=== PATIENT | male | born 1960 | race Caucasian/White ===

== ENCOUNTER 2025-06-16 11:58 | Emergency (ER) | payer MEDICAID, SELFPAY ==
[2025-06-16] VITALS (12 sets, daily range): BP systolic 119–153; BP diastolic 62–88; PULSE 81–97; RESP 18–28; TEMP 36.6–37.2; O2SAT 95–100; BMI 23.6
--- NOTE | 2025-06-16 14:06 | EKG12_ITS ---
Test Reason : SOB Blood Pressure : */* mmHG Vent. Rate : 82 BPM Atrial Rate : 82 BPM P-R Int : 130 ms QRS Dur : 88 ms QT Int : 364 ms P-R-T Axes : 71 64 57 degrees QTcB Int : 425 ms Normal sinus rhythm Normal ECG Confirmed by HERI TYSON, BRADLEY ([id number]), book or script editor MICHAELA CRUZ ([id number]) on 06/18/2025 1:38:56 PM Referred By: OSMANI Confirmed By: BRADLEY LIRIANO MD
--- OUTSIDE RECORDS SUMMARY | 2025-06-16 14:13 | XMS RPT_ITS | CCD ---
Author Organization [facility] Care Team Providers Care [employer] Name Role Phone PROVIDER, EXTERNAL Unavailable Unavailable Christy Mcgee Primary Care Provider Scialan, Christy Lee Primary Care Provider Christy Mcgee Primary Care Provider Christy Mcgee Primary Care Provider Christy Mcgee MD Primary Care Provider CHRISTY MCGEE Primary Care Unavailable NATALI NOLAN Attending Unava ilable Christy Mcgee MD Primary Care Provider Get Bhatia Unavailable Christy Mcgee Primary Care Provider PARTHA BARRIOS Admitting Unavailable PARTHA BARRIOS Primary Care Unavailable PARTHA BARRIOS Attending Unavailable JAYY FRYE Consulting Unavailable JAYY FRYE Referring Unavailable PROVIDER, UNKNOWN Consulting Unavailable PROVIDER, UNKNOWN Consulting Unavailable PROVIDER, UNKNOWN Consulting Unavailable CHRISTY MCGEE Primary Care Unavailable SCICHRISTY PHILLIPS Primary Care Unavailable Get Bhatia MD Unavailable [phone] Christy Mcgee MD Primary Care Provider ODALYS MURILLO Attending Unavailable CHRISTY MCGEE Primary Care Unavailable RAE MARTIN Attending Unavailable ODALYS MURILLO Referring Unavailable CHRISTY MCGEE Primary Care Unavailable ODALYS MURILLO Attending Unavailable CHRISTY MCGEE Primary Care Unavailable SCICHRISTY PHILLIPS Attending Unavailable SCICHRISTY PHILLIPS Primary Care Unavailable SCICHRISTY PHILLIPS Attending Unavailable CHRISTY MCGEE Primary Care Unavailable Medications Current Medications Medication Drug Class(es) Dates Sig (Normalized) Sig (Original) polyethylene glycol 3350 184667 mg / potassium chloride 2970 mg / sodium bicarbonate 6740 mg / sodium chloride 5860 mg / sodium sulfate 67090 mg powder for oral solution (1 source) Osmotic Laxative Start: 07-03-2024 End: 07-03-2024 peg 3350-Electrolytes (GOLYTELY) 236-22.74-6.74 -5.86 gram suspension Indications: Screen for colon cancer Take 4,000 mL by mouth one time only for 1 dose. Refer to printed prep instructions from your provider. 4000 mL 07/03/2024 07/03/2024 Active Completed/Discontinued Medications Medication Drug Class(es) Dates Sig (Normalized) Sig (Original) atorvastatin 20 mg oral tablet (20 sources) HMG-CoA Reductase Inhibitor Start: 08-27-2022 End: 06-20-2024 take 1 tablet by mouth once daily atorvastatin (LIPITOR) 20 MG tablet Indications: Hyperlipidemia, unspecified hyperlipidemia type Take 1 (one) tablet (20 mg total) by mouth daily . 90 tablet 1 07/06/2023 06/20/2024 Discontinued (Reorder (Suppress CancelRx Message to Pharmacy)) Start: 08-16-2018 End: 08-25-2022 take 1 tablet by mouth once daily atorvastatin (LIPITOR) 20 MG tablet Indications: Hyperlipidemia, unspecified hyperlipidemia type Take 1 (one) tablet (20 mg total) by mouth daily . 90 tablet 1 09/23/2021 08/25/2022 Discontinued (Reorder (Suppress CancelRx Message to Pharmacy)) Comment on above: Take 20 mg by mouth once daily. betamethasone 0.5 mg/ml topical lotion (1 source) Corticosteroid Start: 2018 End: 2019 betamethasone dipropionate (DIPROLENE) 0.05 % lotion Apply topically 2 (two) times a day . 60 mL 0 02/27/2019 08/17/2019 Discontinued (Therapy completed) betamethasone 0.0005 mg/mg / calcipotriene 0.10815 mg/mg topical ointment (5 sources) Corticosteroid, Vitamin D Analog Start: 2022 End: 2023 calcipotriene-betam ethasone (TACLONEX) ointment Indications: Seborrheic dermatitis Apply topically daily . 60 g 5 07/06/2023 07/05/2024 calcium chloride 0.0014 meq/ml / potassium chloride 0.004 meq/ml / sodium chloride 0.103 meq/ml / sodium lactate 0.028 meq/ml injectable solution (1 source) Start: 2023 End: 2023 take 30 mL intravenously every hour 30 mL/hr, INTRAVENOUS, CONTINUOUS, Starting on Wed07/14/24 at 1300, Until Wed07/14/24 at 1422, Preprocedure clobetasol propionate 0.5 mg/ml topical solution (2 sources) Corticosteroid Start: 2018 End: 2019 clobetasol (TEMOVATE) 0.05 % scalp solution Indications: Seborrheic dermatitis Apply topically daily Apply thin film onto dry scalp affected areas only. Leave in place for 15 min before lathering and rinsing. . 50 mL 0 02/14/2019 08/17/2019 Discontinued (Therapy completed) diphenhydrAMINE (1 source) Histamine-1 Receptor Antagonist Start: 2023 End: 2023 12.5-50 mg, INTRAVENOUS, DIRECTED, Starting on Wed07/14/24 at 1400, Until Wed07/14/24 at 1759, DOSING DIRECTED BY PHYSICIAN FOR PROCEDURAL SEDATION ONLY, Intraprocedure 1 ml fentaNYL 0.05 mg/ml injection (1 source) Opioid Agonist Start: 2023 End: 2023 25-100 mcg, INTRAVENOUS, DIRECTED, Starting on Wed07/14/24 at 1400, Until Wed07/14/24 at 1759, DOSING DIRECTED BY PHYSICIAN FOR PROCEDURAL SEDATION ONLY, Intraprocedure ketoconazole 20 mg/ml medicated shampoo (12 sources) Azole Antifungal Start: 2022 End: 2024 ketoconazole (NIZORAL) 2 % shampoo Indications: Psoriasis Apply topically twice weekly Start: 07/08/23. 120 mL 5 07/08/2023 06/20/2024 Discontinued (Reorder (Suppress CancelRx Message to Pharmacy)) Start: 03-19-2022 End: 08-25-2022 ketoconazole (NIZORAL) 2 % s hampoo Indications: Psoriasis Apply topically twice weekly Start: 03/19/22. 120 mL 0 03/19/2022 08/25/2022 Discontinued (Reorder (Suppress CancelRx Message to Pharmacy)) Start: 08-18-2018 End: 08-18-2019 ketoconazole (NIZORAL) 2 % s hampoo Indications: Psoriasis Apply topically twice weekly Start: 08/18/18. 120 mL 5 08/18/2018 02/14/2019 Discontinued (Therapy completed) lisinopril 10 mg oral tablet (20 sources) Angiotensin Converting Enzyme Inhibitor Start: 08-27-2022 End: 06-20-2024 take 1 tablet by mouth once daily lisinopriL (PRINIVIL,ZESTRIL) 10 MG tablet Indications: Essential hypertension Take 1 (one) tablet (10 mg total) by mouth daily . 90 tablet 1 07/06/2023 06/20/2024 Discontinued (Reorder (Suppress CancelRx Message to Pharmacy)) Start: 08-16-2018 End: 08-25-2022 take 1 tablet by mouth once daily lisinopriL (PRINIVIL,ZESTRIL) 10 MG tablet Indications: Essential hypertension Take 1 (one) tablet (10 mg total) by mouth daily . 90 tablet 1 09/23/2021 08/25/2022 Discontinued (Reorder (Suppress CancelRx Message to Pharmacy)) Comment on above: Take 10 mg by mouth once daily. methylPREDNISolone 4 mg oral tablet (8 sources) Corticosteroid Start: 2020 End: 2021 take 1 tablet by mouth once daily methylPREDNISolone (MEDROL DOSEPACK) 4 mg tablet Indications: Dermatitis due to plants, including poison garry, sumac, and oak Take 1 (one) tablet (4 mg total) by mouth daily follow package directions . 21 tablet 0 06/11/2021 09/23/2021 Discontinued (Therapy completed) Start: 06-11-2021 End: 06-11-2021 methylPREDNISolone sod suc(P F) (SOLU-medrol) Injection 125 mg Start: 06-11-2021 End: 06-11-2021 methylPREDNISolone sod suc(P F) (SOLU-medrol) Injection 125 mg Start: 06-11-2021 End: 06-11-2021 methylPREDNISolone sod suc(P F) (SOLU-medrol) Injection 125 mg Start: 06-11-2021 End: 06-11-2021 methylPREDNISolone sod suc(P F) (SOLU-medrol) Injection 125 mg 5 ml midazolam 1 mg/ml injection (1 source) Benzodiazepine Start: 07-14-2024 End: 07-14-2024 1-5 mg, INTRAVENOUS, DIRECTED, Starting on Wed07/14/24 at 1400, Until Wed07/14/24 at 1759, DOSING DIRECTED BY PHYSICIAN FOR PROCEDURAL SEDATION ONLY, Intraprocedure tropicamide 10 mg/ml ophthalmic solution (1 source) Anticholinergic Start: 03-01-2023 End: 03-01-2023 tropicamide 1 % 1 Drop (MYDRIACYL) Problems Active Problems Problem Classification Problem Date Documented Da te Episodic/Chronic Allergic reactions (2 sources) Contact dermatitis due to plants; Translations: [Unspecified contact dermatitis due to plants, except food] Episodic Blindness and vision defects (3 sources) Bilateral hyperopia of eyes; Translations: [Hypermetropia, bilateral] 03-01-2023 Episodic Cancer of bronchus; lung (18 sources) Malignant tumor of lung; Translations: [Malignant neoplasm of unspecified part of unspecified bronchus or lung] Onset: 08-15-2013 Resolved: 11-22-2013 01-13-2016 Chronic Cataract (6 sources) Nuclear sclerotic cataract; Translations: [Age-related nuclear cataract, bilateral] Onset: 03-01-2023 03-01-2023 Chronic Deficiency and other anemia (1 source) Anemia; Translations: [Anemia, unspecified] 07-17-2024 Episodic Disorders of lipid metabolism (20 sources) Hyperlipidemia; Translations: [Hyperlipidemia, unspecified] Onset: 08-28-2018 08-28-2018 Chronic Essential hypertension (20 sources) Essential hypertension; Translations: [Elevated blood pressure] Onset: 09-21-2013 Resolved: 11-22-2013 08-28-2018 Chronic Immunizations and screening for infectious disease (2 sources) Encounter for immunization; Translations: [Immunization due] Episodic Other inflammatory condition of skin (20 sources) Psoriasis; Translations: [Psoriasis, unspecified] Onset: 08-28-2018 08-28-2018 Chronic Other inflammatory condition of skin (2 sources) Psoriasis, unspecified; Translations: [Psoriasis, unspecified] Onset: 08-28-2018 Chronic Other inflammatory condition of skin (3 sources) Seborrheic dermatitis; Translations: [Seborrheic dermatitis, unspecified] Episodic Residual codes; unclassified (1 source) Family history of cancer of colon; Translations: [Family history of malignant neoplasm of digestive organs] 07-03-2024 Episodic Unclassified (9 sources) SUMMARY Onset: 11-22-2013 Resolved: 11-22-2013 Unclassified (5 sources) DISPOSITION AND FOLLOW-UP Onset: 11-22-2013 Unclassified (1 source) History of colonic polyps; Translations: [History of colonic polyps] Onset: 07-21-2024 Past or Other Problems Problem Classification Problem Date Documented Da te Episodic/Chronic Acute posthemorrhagic anemia (4 sources) Acute posthemorrhagic anemia; Translations: [Acute posthemorrhagic anemia] Onset: 4 Resolved: 4 07-21-2021 Episodic Administrative/social admission (4 sources) Patient encounter status; Translations: [Other specified counseling] Onset: 4 Resolved: 4 07-21-2021 Episodic Cardiac dysrhythmias (4 sources) Atrial fibrillation; Translations: [Unspecified atrial fibrillation] Onset: 4 Resolved: 4 07-21-2021 Chronic Crushing injury or internal injury (4 sources) Acute lung injury; Translations: [Unspecified injury of lung, unspecified, initial encounter] Onset: 4 Resolved: 4 11-22-2013 Episodic Diabetes mellitus without complication (4 sources) Metabolic stress hyperglycemia; Translations: [Hyperglycemia, unspecified] Onset: 4 Resolved: 4 07-21-2021 Episodic Diseases of white blood cells (8 sources) Leukocytosis; Translations: [Elevated white blood cell count, unspecified] Onset: 4 Resolved: 4 07-21-2021 Chronic Fluid and electrolyte disorders (8 sources) Decreased plasma volume; Translations: [Hypovolemia] Onset: 4 Resolved: 4 07-21-2021 Episodic Gastrointestinal hemorrhage (4 sources) Gastrointestinal hemorrhage; Translations: [Gastrointestinal hemorrhage, unspecified] Resolved: 4 11-22-2013 Episodic Genitourinary symptoms and ill-defined conditions (6 sources) Nocturia; Translations: [Nocturia] Onset: 3 Episodic Nutritional deficiencies (4 sources) Malnutrition (calorie); Translations: [Moderate protein-calorie malnutrition] Onset: 4 Resolved: 4 07-21-2021 Chronic Other and unspecified benign neoplasm (4 sources) Benign neoplasm of colon; Translations: [Benign neoplasm of colon, unspecified] Resolved: 4 11-22-2013 Episodic Other and unspecified benign neoplasm (5 sources) History of polyp of colon; Translations: [Personal history of colonic polyps] Resolved: 4 11-22-2013 Episodic Other gastrointestinal disorders (4 sources) Diarrhea; Translations: [Diarrhea, unspecified] Onset: 4 Resolved: 4 07-21-2021 Episodic Other nervous system disorders (4 sources) Postoperative pain ; Translations: [Other acute postprocedural pain] Onset: 4 Resolved: 4 07-21-2021 Episodic Other screening for suspected conditions (not mental disorders or infectious disease) (8 sources) Raised prostate specific antigen; Translations: [Patient encounter status] Onset: 4 07-01-2024 Episodic Pleurisy; pneumothorax; pulmonary collapse (4 sources) Bronchopleural fistula; 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] Onset: 4 Resolved: 4 07-21-2021 Episodic Pulmonary heart disease (5 sources) Pulmonary embolism; Translations: [Other pulmonary embolism without acute cor pulmonale] Onset: 4 Episodic Residual codes; unclassified (4 sources) Restlessness and agitation; Translations: [Restlessness and agitation] Onset: 4 Resolved: 4 Chronic Respiratory failure; insufficiency; arrest (adult) (4 sources) Acute respiratory failure; Translations: [Acute respiratory failure, unspecified whether with hypoxia or hypercapnia] Onset: 4 Resolved: 4 07-21-2021 Episodic Unclassified (4 sources) Patient encounter status; Translations: [Well adult exam] 07-01-2024 Unclassified (4 sources) Drug therapy finding; Translations: [DVT prophylaxis] Onset: 4 Resolved: 4 07-21-2021 Results Test Name Value Interpretation Reference Range Facility CNOVon 07-21-2024 CNOV Office Visit (GENSWS ) LIZETH ESTRELLA ([id number]) 1960 Date Time Provider Department 07/21/24 2:30 PM ODALYS MURILLO During your visit today, we recorded the following information about you: Odalys Murillo APRN.AGRICULTURAL CONSULTANT 07/21/2024 2:35 PM Signed FOLLOW UP VISIT - ENDOSCOPY Lizeth Estrella 1960 [id number] REFERRING PHYSICIAN: No referring provider defined for this encounter. Lizeth Estrella is a patient I am following for colon cancer screening-family hx. Dr. Martin performed lower endoscopy on 07/14/24. The patient was found to have Impression: - External and internal hemorrhoids. - One 2 to 3 mm polyp in the cecum, removed with a cold biopsy forceps. Resected and retrieved. - Two 2 to 6 mm polyps in the descending colon, removed with a hot snare. Resected and retrieved. - Two 2 to 10 mm polyps in the sigmoid colon, removed with a hot snare. Resected and retrieved. Pathology demonstrated: FINAL DIAGNOSIS A. Cecal polyp, biopsy: - Tubular adenoma. B. Left colon polyps, biopsies: - Multiple fragments of tubular adenoma. - Separate fragment of colonic mucosa with intramucosal lymphoid aggregate. - Additional fragment of colonic mucosa with no diagnostic abnormality. C. Sigmoid colon polyps, biopsies: - Fragments of tubular adenoma. JE 07/18/2024 The patient notes no complaints since the procedure. VITALS: There were no vitals taken for this visit. General: patient is alert, cooperative, pleasant and in no acute distress On examination, the abdomen is benign. Assessment ASSESSMENT/PLAN: 1. History of colonic polyps - ICD9: V12.72, ICD10: Z86.0100 The operative findings and pathology report were reviewed with the patient, and the patient has had the opportunity to ask questions and have questions answered. If the patient notes any problems or changes in bowel function, the patient should contact me immediately. Otherwise I recommend follow up endoscopy in 3 years. HM updated and recall letter generated. Discussed treatment plan and patient voices understanding. Patient's questions answered appropriately. Medications and potential side effects were discussed and patient voices understanding. Return to the office as scheduled or as needed for worsening/no improvement. Odalys Murillo APRN.BRAYDEN Allergies As of Date: 07/21/2024 (No Known Allergies) Date Reviewed: 07/21/2024 Reviewed by: Odalys Murillo APRN.AGRICULTURAL CONSULTANT - Fully Assessed Reason for Visit: Follow Up [171] Cmt: colonoscopy Primary Visit Diagnosis:History of colonic polyps [Z86.0100] Prescriptions as of 07/21/2024 - lisinopril (ZESTRIL, PRINIVIL) 10 mg tablet Take 10 mg by mouth once daily. - atorvastatin (LIPITOR) 20 mg tablet Take 20 mg by mouth once daily. Problem List As Of Date 07/21/2024 Noted Resolved Benign neoplasm of colon [D12.6] 11/22/2013 Hemorrhage of gastrointestinal tract, unspecifi* 11/22/2013 Personal history of colonic polyps [Z86.0100] 11/22/2013 Right posterolateral thoracotomy, en-bloc rese*08/15/2013 11/22/2013 Post-op pain [G89.18] 09/21/2013 11/22/2013 Intravascular volume depletion [E86.1] 09/21/2013 09/22/2013 Stress hyperglycemia [R73.9] 09/21/2013 11/22/2013 Hypertension [I10] 09/21/2013 11/22/2013 Fluid overload [E87.70] 09/22/2013 09/25/2013 Lung cancer (HCC) [C34.90] 11/22/2013 HTN (hypertension) [I10] 11/22/2013 Respiratory failure, acute (HCC) [J96.00] 09/23/2013 11/22/2013 Acute blood loss anemia [D62] 09/24/2013 10/05/2013 Acute lung injury [S27.309A] 09/25/2013 11/22/2013 Malnutrition of moderate degree (HCC) [E44.0] 09/25/2013 11/22/2013 Atrial fibrillation (HCC) [I48.91] 09/26/2013 11/22/2013 Agitation [R45.1] 09/28/2013 10/17/2013 Leukocytosis [D72.829] 09/29/2013 10/04/2013 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] 10/02/2013 11/22/2013 Discharge planning [Z71.89] 10/10/2013 11/22/2013 DVT prophylaxis [ZQK8112] 10/11/2013 11/22/2013 Leukocytosis [D72.829] 10/14/2013 10/17/2013 Diarrhea [R19.7] 10/17/2013 11/22/2013 SUMMARY [V999.95] 11/22/2013 11/22/2013 SUMMARY [V999.95] 11/22/2013 Pulmonary embolism (HCC) [I26.99] 11/22/2013 Lung cancer (HCC) [C34.90] 11/22/2013 DISPOSITION AND FOLLOW-UP [V999.01] 11/22/2013 Pancoast tumor (HCC) [C34.10] 01/13/2016 Nuclear sclerotic cataract of both eyes [H25.13]03/01/2023 Encounter Status:Closed by ODALYS MURILLO on 07/21/24 Normal [facility] [id number] 07-14-2024 [id number] HNO ID: [id number] Author: RODRI LEY RN Service: ? Author Type: Registered Nurse Type: [id number] Filed: 07/14/2024 14:30 Note Text: The patient received a copy of Colonoscopy discharge instructions that contain information for how to contact the physician who performed the procedure and when to seek medical care. Normal [facility] Colonoscopyon 07-14-2024 Colonoscopy [facility] Gastrointestinal Endoscopy Patient Name: Lizeth Estrella Procedure Date: 07/14/2024 1:35 PM Date of : 1960 Admit Type: Outpatient Age: 64 Gender: Male Note Status: Finalized Procedure: Colonoscopy - screening Indications: Screening for colorectal malignant neoplasm Providers: Rae Martin MD Patient Profile: Refer to note in patient chart for documentation of history and physical. Last Colonoscopy: 10 years ago. Referring Physician: Odalys Murillo (Referring MD) Medicines: Midazolam 7 mg IV, Fentanyl 100 micrograms IV, Diphenhydramine 50 mg IV Complications: No immediate complications. Requesting Provider: Procedure: Pre-Anesthesia Assessment: - Prior to the procedure, a History and Physical was performed, and patient medications and allergies were reviewed. The patient is competent. The risks and benefits of the procedure and the sedation options and risks were discussed with the patient. All questions were answered and informed consent was obtained. Patient identification and proposed procedure were verified by the physician in the pre-procedure area. Mental Status Examination: alert and oriented. Airway Examination: normal oropharyngeal airway and neck mobility. Respiratory Examination: clear to auscultation. CV Examination: normal. Prophylactic Antibiotics: The patient does not require prophylactic antibiotics. Prior Anticoagulants: The patient has taken no anticoagulant or antiplatelet agents. ASA Grade Assessment: II - A patient with mild systemic disease. After reviewing the risks and benefits, the patient was deemed in satisfactory condition to undergo the procedure. The anesthesia plan was to use moderate sedation / analgesia (conscious sedation). Immediately prior to administration of medications, the patient was re-assessed for adequacy to receive sedatives. The heart rate, respiratory rate, oxygen saturations, blood pressure, adequacy of pulmonary ventilation, and response to care were monitored throughout the procedure. The physical status of the patient was re-assessed after the procedure. After I obtained informed consent, the scope was passed under direct vision. Throughout the procedure, the patient's blood pressure, pulse, and oxygen saturations were monitored continuously. The Colonoscope was introduced through the anus and advanced to the cecum, identified by the appendiceal orifice, IC valve and transillumination. The colonoscopy was performed without difficulty. The patient tolerated the procedure well. The quality of the bowel preparation was adequate. The appendiceal orifice and the rectum were photographed. Moderate Sedation: The administration of moderate sedation was initiated at 13:40. Moderate (conscious) sedation was personally administered by the endoscopist. The following parameters were monitored: oxygen saturation, heart rate, blood pressure, respiratory rate, EKG, adequacy of pulmonary ventilation, and response to care. Total physician intraservice time was 28 minutes. Findings: The perianal and digital rectal examinations were normal. External and internal hemorrhoids were found. A 2 to 3 mm polyp was found in the cecum. The polyp was sessile. The polyp was removed with a cold biopsy forceps. Resection and retrieval were complete. Verification of patient identification for the specimen was done by the nurse. Estimated blood loss was minimal. Two sessile polyps were found in the descending colon. The polyps were 2 to 6 mm in size. These polyps were removed with a hot snare. Resection and retrieval were complete. Verification of patient identification for the specimen was done by the nurse. Estimated blood loss was minimal. Two sessile polyps were found in the sigmoid colon. The polyps were 2 to 10 mm in size. These polyps were removed with a hot snare. Resection and retrieval were complete. Verification of patient identification for the specimen was done by the nurse. Estimated blood loss was minimal. Impression: - External and internal hemorrhoids. - One 2 to 3 mm polyp in the cecum, removed with a cold biopsy forceps. Resected and retrieved. - Two 2 to 6 mm polyps in the descending colon, removed with a hot snare. Resected and retrieved. - Two 2 to 10 mm polyps in the sigmoid colon, removed with a hot snare. Resected and retrieved. Recommendation: - Repeat colonoscopy date to be determined after pending pathology results are reviewed for surveillance based on pathology results. - - Follow up with Alejandra Murillo NP, may be via televisit for discussion of pathology results and determination of timing of future endoscopies - Patient has a contact number available for emergencies. The signs and symptoms of potential delayed complications were discussed with the patient. Return to normal activities tomorrow. Written discharge instruction (more content not included)... Normal [facility] Colonoscopy Study observatio non 07-14-2024 [facility] Gastrointestinal Endoscopy Patient Name: Lizeth Estrella Procedure Date: 07/14/2024 1:35 PM Date of : 1960 Admit Type: Outpatient Age: 64 Gender: Male Note Status: Finalized Procedure: Colonoscopy - screening Indications: Screening for colorectal malignant neoplasm Providers: Rae Martin MD Patient Profile: Refer to note in patient chart for documentation of history and physical. Last Colonoscopy: 10 years ago. Referring Physician: Odalys Murillo (Referring MD) Medicines: Midazolam 7 mg IV, Fentanyl 100 micrograms IV, Diphenhydramine 50 mg IV Complications: No immediate complications. Requesting Provider: Procedure: Pre-Anesthesia Assessment: - Prior to the procedure, a History and Physical was performed, and patient medications and allergies were reviewed. The patient is competent. The risks and benefits of the procedure and the sedation options and risks were discussed with the patient. All questions were answered and informed consent was obtained. Patient identification and proposed procedure were verified by the physician in the pre-procedure area. Mental Status Examination: alert and oriented. Airway Examination: normal oropharyngeal airway and neck mobility. Respiratory Examination: clear to auscultation. CV Examination: normal. Prophylactic Antibiotics: The patient does not require prophylactic antibiotics. Prior Anticoagulants: The patient has taken no anticoagulant or antiplatelet agents. ASA Grade Assessment: II - A patient with mild systemic disease. After reviewing the risks and benefits, the patient was deemed in satisfactory condition to undergo the procedure. The anesthesia plan was to use moderate sedation / analgesia (conscious sedation). Immediately prior to administration of medications, the patient was re-assessed for adequacy to receive sedatives. The heart rate, respiratory rate, oxygen saturations, blood pressure, adequacy of pulmonary ventilation, and response to care were monitored throughout the procedure. The physical status of the patient was re-assessed after the procedure. After I obtained informed consent, the scope was passed under direct vision. Throughout the procedure, the patient's blood pressure, pulse, and oxygen saturations were monitored continuously. The Colonoscope was introduced through the anus and advanced to the cecum, identified by the appendiceal orifice, IC valve and transillumination. The colonoscopy was performed without difficulty. The patient tolerated the procedure well. The quality of the bowel preparation was adequate. The appendiceal orifice and the rectum were photographed. Moderate Sedation: The administration of moderate sedation was initiated at 13:40. Moderate (conscious) sedation was personally administered by the endoscopist. The following parameters were monitored: oxygen saturation, heart rate, blood pressure, respiratory rate, EKG, adequacy of pulmonary ventilation, and response to care. Total physician intraservice time was 28 minutes. Findings: The perianal and digital rectal examinations were normal. External and internal hemorrhoids were found. A 2 to 3 mm polyp was found in the cecum. The polyp was sessile. The polyp was removed with a cold biopsy forceps. Resection and retrieval were complete. Verification of patient identification for the specimen was done by the nurse. Estimated blood loss was minimal. Two sessile polyps were found in the descending colon. The polyps were 2 to 6 mm in size. These polyps were removed with a hot snare. Resection and retrieval were complete. Verification of patient identification for the specimen was done by the nurse. Estimated blood loss was minimal. Two sessile polyps were found in the sigmoid colon. The polyps (more content not included)... PR[facility] Radiology Study observation (narrative) [facility] HISTORY PHYSICALon HISTORY PHYSICAL HNO ID: [id number] Author: RAE MARTIN MD Service: General Surgery Author Type: Physician Type: H&P Filed: 07/14/2024 13:36 Note Text: HISTORY AND PHYSICAL Lizeth Estrella : 1960 REFERRING PHYSICIAN: No referring provider defined for this encounter. CHIEF COMPLAINT: Patient presents with: Consult: colonoscopy HPI: Lizeth is a 64 year old male referred for endoscopy. Lizeth notes due for screening colonoscopy- family history of colon cancer in brother. Lizeth denies abdominal pain.. Lizeth denies diarrhea. Lizeth denies constipation. Lizeth denies a change in bowel habits. Lizeth denies melena. Lizeth notes bright red blood per rectum. -painless, thinks it is a result of hemorrhoids Lizeth notes hemorrhoids. Lizeth denies heartburn. Lizeth denies dysphagia. Lizeth denies a history of ulcers/ peptic ulcer disease. Lizeth had a hx of right lung cancer 14 years ago- had 2/3 of his right lung removed. Was discharged from pulmonology at 10 year ced. Denies any CP, COB, wheezing, recent illness or hospitalizations. Lizeth notes family history of colon issues. Brother with colon cancer, just 2 months ago Lizeth has undergone prior endoscopy. O' bleness in [place] in 2007 CURRENT MEDICATIONS Current Outpatient Medications Medication Sig lisinopril (ZESTRIL, PRINIVIL) 10 mg tablet Take 10 mg by mouth once daily. atorvastatin (LIPITOR) 20 mg tablet Take 20 mg by mouth once daily. peg 3350-Electrolytes (GOLYTELY) 236-22.74-6.74 -5.86 gram suspension Take 4,000 mL by mouth one time only for 1 dose. Refer to printed prep instructions from your provider. No current facility-administered medications for this visit. ALLERGIES: Patient has no known allergies. PAST MEDICAL HISTORY PAST MEDICAL HISTORY Diagnosis Date Benign neoplasm of colon Elevated cholesterol History of colonic polyps 03/21/2008 HTN (hypertension) Internal hemorrhoids without mention of complication Personal history of colonic polyps Primary lung adenocarcinoma (HCC) 09/21/2013 Pulmonary embolism (HCC) PAST SURGICAL HISTORY PAST SURGICAL HISTORY Procedure Laterality Date COLONOSCOPY FLX DX W/COLLJ SPEC WHEN PFRMD 01/31/03 Colonoscopy COLONOSCOPY FLX DX W/COLLJ SPEC WHEN PFRMD 03/21/08 PAST SURGICAL HISTORY OF 09/21/2013 Right Pancoast tumor resection including upper lobectomy with en bloc resection of ribs 1, 2, and 3 and posterior elements of first and second vertebrae and right VATS exploration TRACHEOSTOMY (SPECIFY) 10/02/2013 Open tracheostomy. Decannulated 10/12/13 FAMILY HISTORY FAMILY HISTORY Problem Relation Age of Onset Cancer Mother 2001 melanoma skin cancer Hypertension Mother Cancer Father small cell lung cancer Diabetes Brother Diabetes Brother from CHF age 36 SOCIAL HISTORY Social History Tobacco Use Smoking status: Former Current packs/day: 1.00 Average packs/day: 1 pack/day for 25.0 years (25.0 ttl pk-yrs) Types: Cigarettes Smokeless tobacco: Never Tobacco comments: quit Vaping Use Vaping status: Never Used Substance Use Topics Alcohol use: Yes Alcohol/week: 12.0 standard drinks of alcohol Types: 12 Cans of Beer (12oz) per week Drug use: No REVIEW OF SYMPTOMS: The review of systems data was entered by the nurse and reviewed by or Nursing Notes: Dianne Cuello RN 07/03/2024 2:30 PM Signed REVIEW OF SYSTEMS: General: The patient denies fatigue, denies weight loss, denies weight gain, denies feeling hot, and denies feelings of cold. Eyes: The patient denies glaucoma, denies eye injury/surgery, wears glasses or contacts. Ear/Nose/Throat: The patient denies allergies, denies hayfever, denies ear infections, and denies bloody noses. Cardiovascular: The patient denies chest pain, denies heart disease, denies high blood pressure,denies cardiac stent, denies prior heart attack, denies irregular heart beat, denies high cholesterol, denies poor circulation, denies heart failure, other cardiac issues, denies claudication, denies cold feet, denies peripheral arterial stent. Respiratory: The patient denies tuberculosis, denies pneumonia, denies frequent cough, denies pulmonary embolism, denies shortness of breath, and denies coughing up blood. Gastrointestinal: The patient denies difficulty swallowing, denies acid reflux, denies ulcers, denies vomiting, denies jaundice/hepatitis, denies gallbladder problems, denies black or tarry stools, NOTES hemorrhoids, denies bleeding from rectum, denies diverticulitis, denies constipation, denies diarrhea, denies loss of stool control, and denies hernias. Kidney/Bladder: The patient denies kidney stones, denies urine infections, and denies bloody urine. Skin: The patient denies a history of skin cancer, denies bleeding/changing moles, and denies a history of skin rash. Neurologic: The patient denies a history of epilepsy/convulsions, denies headaches, (more content not included)... Normal [facility] SURGICAL PATHOLOGYon CASE REPORT Normal [facility] Comment on above: Order Comment: Speci gloria Type: TISSUE SPECIMEN Ordering Facility: [facility] Address: [address] [place] [address] Result Comment: Surg [facility] Pathology Report Case: [id number] Authorizing Provider: Rae Martin MD Collected: 07/14/2024 01:53 PM Ordering Location: Ambulatory Surgery Received: 07/14/2024 03:12 PM Pathologist: Lyle Edmond MD Specimens: A) - Colon, Cecum, Polyp B) - Colon, Polyp, Left colon polyps x 2 C) - Colon, Sigmoid, Polyp, x 2 polyps Performed By: #### S #### [facility] CLIA [id number] [place] [address] [place] FINAL DIAGNOSIS Normal [facility] Comment on above: Order Comment: Speci men Type: TISSUE SPECIMEN Ordering Facility: [facility] Address: [address] [place] [address] Result Comment: A. C ecal polyp, biopsy: - Tubular adenoma. B. Left colon polyps, biopsies: - Multiple fragments of tubular adenoma. - Separate fragment of colonic mucosa with intramucosal lymphoid aggregate. - Additional fragment of colonic mucosa with no diagnostic abnormality. C. Sigmoid colon polyps, biopsies: - Fragments of tubular adenoma. JEL 07/18/2024 Performed By: #### S #### [facility] CLIA [id number] [address] [place] [address] [place] FIN[place] PERFORMING LAB Normal [facility] Comment on above: Order Comment: Speci men Type: TISSUE SPECIMEN Ordering Facility: [facility] Address: [address] [place] [address] Result Comment: Diag nostic interpretation performed at [facility], [address] [place] [address] CLIA# [id number] Blade Boner: Ced Bhagat M.D. Performed By: #### S #### [facility] CLIA [id number] [address] [place] [address] GROSS DESCRIPTION Normal [facility] Comment on above: Order Comment: Speci men Type: TISSUE SPECIMEN Ordering Facility: [facility] Address: [address] [place] [address] Result Comment: A. C olon, Cecum, Polyp Received in formalin is one piece of mejia, soft tissue measuring 0.2 x 0.2 x 0.2 cm. Totally submitted in one cassette. B. Colon, Polyp Received in formalin are multiple pieces of mejia, soft tissue aggregating to 0.4 x 0.3 x 0.2 cm. Totally submitted in one cassette. C. Colon, Sigmoid, Polyp Received in formalin is a mejia-red polypoid segment of tissue measuring 0.8 x 0.6 x 0.5 cm. No stalk is present. The line of resection is noted. The specimen is bisected. Also received in the same container is one piece of mejia, soft tissue measuring 0.2 x 0.2 x 0.2 cm. Totally submitted in one cassette. JTS July 15, 2024 9:33 AM Gross examination performed at [facility], [address] [place] [address] Performed By: #### S #### [facility] [place] [id number] [facility] CNOVon 07-03-2024 CNOV Office Visit (GENSWS ) LIZETH ESTRELLA ([id number]) 1960 M Date Time Provider Department 07/03/24 2:30 PM ODALYS MURILLO During your visit today, we recorded the following information about you: Temperature Pulse Blood pressure Weight 98.1 degrees 60/minute 140/80 74.2 kg Height 1.778 m Odalys Murillo APRN.AGRICULTURAL CONSULTANT 07/03/2024 4:11 PM Signed HISTORY AND PHYSICAL Lizeth E Ana : 1960 REFERRING PHYSICIAN: No referring provider defined for this encounter. CHIEF COMPLAINT: Patient presents with: Consult: colonoscopy HPI: Lizeth is a 64 year old male referred for endoscopy. Lizeth notes due for screening colonoscopy- family history of colon cancer in brother. Lizeth denies abdominal pain.. Lizeth denies diarrhea. Lizeth denies constipation. Lizeth denies a change in bowel habits. Lizeth denies melena. Lizeth notes bright red blood per rectum. -painless, thinks it is a result of hemorrhoids Lizeth notes hemorrhoids. Lizeth denies heartburn. Lizeth denies dysphagia. Lizeth denies a history of ulcers/ peptic ulcer disease. Lizeth had a hx of right lung cancer 14 years ago- had 2/3 of his right lung removed. Was discharged from pulmonology at 10 year ced. Denies any CP, COB, wheezing, recent illness or hospitalizations. Lizeth notes family history of colon issues. Brother with colon cancer, just 2 months ago Lizeth has undergone prior endoscopy. O' bleness in [place] in 2007 Current Outpatient Medications Medication Sig lisinopril (ZESTRIL, PRINIVIL) 10 mg tablet Take 10 mg by mouth once daily. atorvastatin (LIPITOR) 20 mg tablet Take 20 mg by mouth once daily. peg 3350-Electrolytes (GOLYTELY) 236-22.74-6.74 -5.86 gram suspension Take 4,000 mL by mouth one time only for 1 dose. Refer to printed prep instructions from your provider. No current facility-administered medications for this visit. ALLERGIES: Patient has no known allergies. PAST MEDICAL HISTORY Diagnosis Date Benign neoplasm of colon Elevated cholesterol History of colonic polyps 03/21/2008 HTN (hypertension) Internal hemorrhoids without mention of complication Personal history of colonic polyps Primary lung adenocarcinoma (HCC) 09/21/2013 Pulmonary embolism (HCC) PAST SURGICAL HISTORY Procedure Laterality Date COLONOSCOPY FLX DX W/COLLJ SPEC WHEN PFRMD 01/31/03 Colonoscopy COLONOSCOPY FLX DX W/COLLJ SPEC WHEN PFRMD 03/21/08 PAST SURGICAL HISTORY OF 09/21/2013 Right Pancoast tumor resection including upper lobectomy with en bloc resection of ribs 1, 2, and 3 and posterior elements of first and second vertebrae and right VATS exploration TRACHEOSTOMY (SPECIFY) 10/02/2013 Open tracheostomy. Decannulated 10/12/13 FAMILY HISTORY Problem Relation Age of Onset Cancer Mother 2002 melanoma skin cancer Hypertension Mother Cancer Father small cell lung cancer Diabetes Brother Diabetes Brother from CHF age 36 Social History Tobacco Use Smoking status: Former Current packs/day: 1.00 Average packs/day: 1 pack/day for 25.0 years (25.0 ttl pk-yrs) Types: Cigarettes Smokeless tobacco: Never Tobacco comments: quit Vaping Use Vaping status: Never Used Substance Use Topics Alcohol use: Yes Alcohol/week: 12.0 standard drinks of alcohol Types: 12 Cans of Beer (12oz) per week Drug use: No REVIEW OF SYMPTOMS: The review of systems data was entered by the nurse and reviewed by or Nursing Notes: Dianne Cuello RN 07/03/2024 2:30 PM Signed REVIEW OF SYSTEMS: General: The patient denies fatigue, denies weight loss, denies weight gain, denies feeling hot, and denies feelings of cold. Eyes: The patient denies glaucoma, denies eye injury/surgery, wears glasses or contacts. Ear/Nose/Throat: The patient denies allergies, denies hayfever, denies ear infections, and denies bloody noses. Cardiovascular: The patient denies chest pain, denies heart disease, denies high blood pressure,denies cardiac stent, denies prior heart attack, denies irregular heart beat, denies high cholesterol, denies poor circulation, denies heart failure, other cardiac issues, denies claudication, denies cold feet, denies peripheral arterial stent. Respiratory: The patient denies tuberculosis, denies pneumonia, denies frequent cough, denies pulmonary embolism, denies shortness of breath, and denies coughing up blood. Gastrointestinal: The patient denies difficulty swallowing, denies acid reflux, denies ulcers, denies vomiting, denies jaundice/hepatitis, denies gallbladder problems, denies black or tarry stools, NOTES hemorrhoids, denies bleeding from rectum, denies diverticulitis, denies constipation, denies diarrhea, denies loss of stool control, and denies hernias. Kidney/Bladder: The patient denies kidney stones, denies urine infections, and denies bloody urine. Skin: The p (more content not included)... Normal [facility] CBC (INCLUDES DIFF/PLT)on Basophils (Bld) [#/Vol] 0.031 10*3/uL Normal 0-200 [facility] Comment on above: Performed By: #### 3 0661, 2417, 7180, 23583 #### [facility] [address], [address] [place] [address] [place] Worker: Jerman Awad MD Basophils/100 WBC (Bld) 0.6 % Normal [facility] Comment on above: Performed By: #### 3 1851, 3899, 4630, 98606 #### [facility] [address], [address] [place], [place] [id number] [place] Worker: Jerman Awad MD Eosinophils (Bld) [#/Vol] 0.062 10*3/uL Normal 15-500 [facility] Comment on above: Performed By: #### 3 61, 6399, 7600, 85351 #### [facility] of [place] [address] [place] Worker: Jerman Awad MD Eosinophils/100 WBC (Bld) 1.2 % Normal [facility] Comment on above: Performed By: #### 3 61, 6399, 7600, 65623 #### [facility] [place] [address] [place] Worker: Jerman Awad MD Erythrocyte distribution width (RBC) [Ratio] 14.9 % Normal 11.0-15.0 [facility] Comment on above: Performed By: #### 3 61, 63, 7600, 77047 #### [facility] [place] [address] [place] Worker: Jerman Awad MD Hematocrit (Bld) [Volume fraction] 37.4 % Low 38.5-50.0 [facility] Comment on above: Performed By: #### 3 61, 63, 7600, 54930 #### [facility] [place] [address] [place] Worker: Jerman Awad MD Hemoglobin (Bld) [Mass/Vol] 11.4 g/dL Low 13.2-17.1 [facility] Comment on above: Performed By: #### 3 61, 63, 7600, 48201 #### [facility] [place] [address] [place] Worker: Jerman Awad MD Lymphocytes (Bld) [#/Vol] 1.102 10*3/uL Normal 850-3900 [facility] Comment on above: Performed By: #### 3 61, 6399, 7600, 80453 #### [facility] [place] [address] [place] Worker: Jerman Awad MD Lymphocytes/100 WBC (Bld) 21.2 % Normal [facility] Comment on above: Performed By: #### 3 61, 63, 7600, 31860 #### [facility] [place] [address] [place] Worker: Jerman Awad MD MCH (RBC) [Entitic mass] 25.8 pg Low 27.0-33.0 [facility] Comment on above: Performed By: #### 3 61, 63, 7600, 13981 #### [facility] [place] [address] [place] Worker: Jerman Awad MD MCHC (RBC) [Mass/Vol] 30.5 g/dL Low 32.0-36.0 [facility] Comment on above: Result Comment: For adults, a slight decrease in the calculated MCHC value (in the range of 30 to 32 g/dL) is most likely not clinically significant; however, it should be interpreted with caution in correlation with other red cell parameters and the patient's clinical condition. Performed By: #### 3 61, 63, 7600, 92869 #### [facility] [place] [address] [place] Worker: Jerman Awad MD MCV (RBC) [Entitic vol] 84.6 fL Normal 80.0-100.0 [facility] Comment on above: Performed By: #### 3 61, 63, 7600, 26482 #### [facility] [place] [address] [place] Worker: Jerman Awad MD Monocytes (Bld) [#/Vol] 0.541 10*3/uL Normal 200-950 [facility] Comment on above: Performed By: #### 3 61, 63, 7600, 28030 #### [facility] [place] [address] [place] Worker: Jerman Awad MD Monocytes/100 WBC (Bld) 10.4 % Normal [facility] Comment on above: Performed By: #### 3 61, 63, 7600, 52265 #### [facility] of [address] [place] [address] [place] Worker: Jerman Awad MD Neutrophils (Bld) [#/Vol] 3.463 10*3/uL Normal 3909-0154 [facility] Comment on above: Performed By: #### 3 6127, 6399, 7600, 21103 #### [facility] of [address], [address] [place] [address] [place] Worker: Jerman Awad MD Neutrophils/100 WBC (Bld) 66.6 % Normal [facility] Comment on above: Performed By: #### 3 6127, 6399, 7600, 96289 #### [facility] [place] [address] [place] Worker: Jerman Awad MD Platelet mean volume (Bld) [Entitic vol] 9.8 fL Normal 7.5-12.5 [facility] Comment on above: Performed By: #### 3 6127, 6399, 7600, 42404 #### [facility] of [address], [address] [place] [address] [place] Worker: Jerman Awad MD Platelets (Bld) [#/Vol] 281 10*3/uL Normal 140-400 [facility] Comment on above: Performed By: #### 3 6127, 6399, 7600, 46178 #### [facility] [place] [address] [place] Worker: Jerman Awad MD RBC (Bld) [#/Vol] 4.42 10*6/uL Normal 4.20-5.80 [facility] Comment on above: Performed By: #### 3 6127, 6399, 7600, 78353 #### [facility] [place] [address] [place] Worker: Jerman Awad MD WBC (Bld) [#/Vol] 5.2 10*3/uL Normal 3.8-10.8 [facility] Comment on above: Performed By: #### 3 61, 6399, 7600, 16859 #### [facility] of [address], [address] [place] [address] [place] Worker: Jerman Awad MD [facility] 06-21-2024 Albumin [Mass/Vol] 4.7 g/dL Normal 3.6-5.1 [facility] Comment on above: Performed By: #### 3 6127, 6399, 7600, 66459 #### [facility] of [address], [address] [place] [address] [place] Worker: Jerman Awad MD Albumin/Globulin [Mass ratio] 1.8 {ratio} Normal 1.0-2.5 [facility] Comment on above: Performed By: #### 3 6127, 6399, 7600, 96113 #### [facility] of [address], [address] [place] [address] [place] Worker: Jerman Awad MD ALP [Catalytic activity/Vol] 43 U/L Normal 35-144 [facility] Comment on above: Performed By: #### 3 6127, 6399, 7600, 15419 #### [facility] of [address], [address] [place] [address] [place] Worker: Jerman Awad MD ALT [Catalytic activity/Vol] 15 U/L Normal 9-46 [facility] Comment on above: Performed By: #### 3 6127, 6399, 7600, 87875 #### [facility] [place] [address] [place] Worker: Jerman Awad MD AST [Catalytic activity/Vol] 15 U/L Normal 10-35 [facility] Comment on above: Performed By: #### 3 6127, 6399, 7600, 82489 #### [facility] [place] [address] [place] Worker: Jerman Awad MD Bilirubin [Mass/Vol] 0.5 mg/dL Normal 0.2-1.2 [facility] Comment on above: Performed By: #### 3 6127, 6399, 7600, 49456 #### [facility] [place] [address] [place] Worker: Jerman Awad MD BUN/CREATININE RATIO SEE NOTE: Normal 6-22 [facility] Comment on above: Result Comment: Not Reported: BUN and Creatinine are within reference range. Performed By: #### 3 6127, 6399, 7600, 94711 #### [facility] [place] [address] [place] Worker: Jerman Awad MD Calcium [Mass/Vol] 9.5 mg/dL Normal 8.6-10.3 [facility] Comment on above: Performed By: #### 3 6127, 6399, 7600, 49871 #### [facility] [place] [address] [place] Worker: Jerman Awad MD Chloride [Moles/Vol] 102 mmol/L Normal 98-110 [facility] Comment on above: Performed By: #### 3 6127, 6399, 7600, 66722 #### [facility] [place] [address] [place] Worker: Jerman Awad MD CO2 [Moles/Vol] 25 mmol/L Normal 20-32 [facility] Comment on above: Performed By: #### 3 6127, 6399, 7600, 58899 #### [facility] [place] [address] [place] Worker: eJrman Awad MD Creatinine [Mass/Vol] 1.06 mg/dL Normal 0.70-1.35 [facility] Comment on above: Performed By: #### 3 6127, 6399, 7600, 74261 #### [facility] [place] [address] [place] Worker: Jerman Awad MD GFR/1.73 sq M.predicted among non-blacks MDRD (S/P/Bld) [Vol rate/Area] 79 mL/min/{1.73_m2} Normal > OR = 60 [facility] Comment on above: Performed By: #### 3 6127, 6399, 7600, 79842 #### [facility] [place] [address] [place] Worker: Jerman Awad MD Globulin (S) [Mass/Vol] 2.6 g/dL Normal 1.9-3.7 [facility] Comment on above: Performed By: #### 3 61, 6399, 7600, 71763 #### [facility] [place] [address] [place] Worker: Jerman Awad MD Glucose [Mass/Vol] 99 mg/dL Normal 65-99 [facility] Comment on above: Result Comment: Fasting reference interval Performed By: #### 3 61, 63, 7600, 12414 #### [facility] [place] [address] [place] Worker: Jerman Awad MD Potassium [Moles/Vol] 4.4 mmol/L Normal 3.5-5.3 [facility] Comment on above: Performed By: #### 3 61, 63, 7600, 67482 #### [facility] [place] [address] [place] Worker: Jerman Awad MD Protein [Mass/Vol] 7.3 g/dL Normal 6.1-8.1 [facility] Comment on above: Performed By: #### 3 61, 63, 7600, 85410 #### [facility] [place] [address] [place] Worker: Jerman Awad MD Sodium [Moles/Vol] 137 mmol/L Normal 135-146 [facility] Comment on above: Performed By: #### 3 61, 63, 7600, 31421 #### [facility] [place] [address] [place] Worker: Jerman Awad MD Urea nitrogen [Mass/Vol] 19 mg/dL Normal 7-25 [facility] Comment on above: Performed By: #### 3 61, 63, 7600, 24068 #### [facility] [address], [address] [place] [address] [place] Worker: Jerman Awad MD Comprehensive metabolic 2000 panelon 06-21-2024 Albumin [Mass/Vol] 4.7 g/dL 3.6 - 5.1 g/dL [facility] Albumin/Globulin [Mass ratio] 1.8 {ratio} [facility] ALP [Catalytic activity/Vol] 43 U/L 35 - 144 U/L [facility] ALT [Catalytic activity/Vol] 15 U/L 9 - 46 U/L [facility] AST [Catalytic activity/Vol] 15 U/L 10 - 35 U/L [facility] Bilirubin [Mass/Vol] 0.5 mg/dL 0.2 - 1.2 mg/dL [facility] [facility] Calcium [Mass/Vol] 9.5 mg/dL 8.6 - 10. 3 mg/dL [facility] Chloride [Moles/Vol] 102 mmol/L 98 - 110 mmol/L [facility] CO2 [Moles/Vol] 25 mmol/L 20 - 32 mmol/L [facility] Creatinine [Mass/Vol] 1.06 mg/dL 0.70 - 1.35 mg/dL [facility] GFR/1.73 sq M.predicted among non-blacks MDRD (S/P/Bld) [Vol rate/Area] 79 mL/min/{1.73_m2} > OR = 60 mL/min/1.73m2 [facility] Globulin (S) [Mass/Vol] 2.6 g/dL [facility] Glucose [Mass/Vol] 99 mg/dL 65 - 99 mg/dL [facility] Comment on above: Fasting reference interval Potassium [Moles/Vol] 4.4 mmol/L 3.5 - 5.3 mmol/L [facility] Protein [Mass/Vol] 7.3 g/dL 6.1 - 8.1 g/dL [facility] Sodium [Moles/Vol] 137 mmol/L 135 - 146 mmol/L [facility] Urea nitrogen [Mass/Vol] 19 mg/dL 7 - 25 mg/dL [facility] Urea nitrogen/Creatinine [Mass ratio] SEE NOTE: [facility] Comment on above: Not Reported: BUN an d Creatinine are within reference range. LIPID PANEL, STANDARDon 05-27 Cholesterol [Mass/Vol] 188 mg/dL Normal <200 [facility] Comment on above: Performed By: #### 3 [id number], [id number], [id number] #### [facility] [address], [address] [place] [address] [place] Worker: Jerman Awad MD Cholesterol in HDL [Mass/Vol] 93 mg/dL Normal > OR = 40 [facility] Comment on above: Performed By: #### 3 [id number], [id number], 7600, [id number] #### [facility] [address], [address] [place] [address] [place] Worker: Jerman Awad MD Cholesterol in LDL [Mass/Vol] 77 mg/dL Normal [facility] Comment on above: Result Comment: Refe rence range: <100 Desirable range <100 mg/dL for primary prevention; <70 mg/dL for patients with CHD or diabetic patients with > or = 2 CHD risk factors. LDL-C is now calculated using the Trip calculation, which is a validated novel method providing better accuracy than the Friedewald equation in the estimation of LDL-C. [place] PAN et al. DARION. 2013;310(19): 2041-7304 (http://education.Hiptype.Bivarus/faq/FWR420) Performed By: #### 3 [id number], 6399, 7600, [id number] #### [facility] [address], [address] [place] [address] [place] Worker: Jerman Awad MD Cholesterol.total/C holesterol in HDL [Mass ratio] 2.0 {ratio} Normal <5.0 [facility] Comment on above: Performed By: #### 3 [id number], [id number], 7600, [id number] #### [facility] [address], [address] [place] [address] [place] Worker: Jerman Awad MD NON HDL CHOLESTEROL 95 mg/dL (calc) Normal <130 [facility] Comment on above: Result Comment: For patients with diabetes plus 1 major ASCVD risk factor, treating to a non-HDL-C goal of <100 mg/dL (LDL-C of <70 mg/dL) is considered a therapeutic option. Performed By: #### 3 [id number], 6399, 7600, [id number] #### [facility] [address], [address] [place] [address] [place] Worker: Jerman Awad MD Triglyceride [Mass/Vol] 96 mg/dL Normal <150 [facility] Comment on above: Performed By: #### 3 [id number], [id number], 7600, [id number] #### [facility] [address], [address] [place] [address] [place] Worker: Jerman Awad MD Laboratory - Chemistry and C hemistry - challengeon 06-21-2024 Prostate specific Ag [Mass/Vol] 1.47 ng/mL < OR = 4.00 [facility] Comment on above: The total PSA value from this assay system is standardized against the WHO standard. The test result will be approximately 20% lower when compared to the equimolar-standardized total PSA ([place]). Comparison of serial PSA results should be interpreted with this fact in mind. This test was performed using the Siemens chemiluminescent method. Values obtained from different assay methods cannot be used interchangeably. PSA levels, regardless of value, should not be interpreted as absolute evidence of the presence or absence of disease. Laboratory - Hematology and Cell countson 06-21-2024 Basophils (Bld) [#/Vol] 31 10*3/uL [facility] Basophils/100 WBC (Bld) 0.6 % [facility] Eosinophils (Bld) [#/Vol] 62 10*3/uL [facility] Eosinophils/100 WBC (Bld) 1.2 % [facility] Erythrocyte distribution width (RBC) [Ratio] 14.9 % 11.0 - 15.0 % [facility] Hematocrit (Bld) [Volume fraction] 37.4 % Low 38.5 - 50.0 % [facility] Hemoglobin (Bld) [Mass/Vol] 11.4 g/dL Low 13.2 - 17.1 g/dL [facility] Lymphocytes (Bld) [#/Vol] 1102 10*3/uL [facility] Lymphocytes/100 WBC (Bld) 21.2 % [facility] MCH (RBC) [Entitic mass] 25.8 pg Low 27.0 - 33.0 pg [facility] MCHC (RBC) [Mass/Vol] 30.5 g/dL Low 32.0 - 36.0 g/dL [facility] Comment on above: For adults, a slight decrease in the calculated MCHC value (in the range of 30 to 32 g/dL) is most likely not clinically significant; however, it should be interpreted with caution in correlation with other red cell parameters and the patient's clinical condition. MCV (RBC) [Entitic vol] 84.6 fL 80.0 - 100.0 fL [facility] Monocytes (Bld) [#/Vol] 541 10*3/uL [facility] Monocytes/100 WBC (Bld) 10.4 % [facility] Neutrophils (Bld) [#/Vol] 3463 10*3/uL [facility] Neutrophils/100 WBC (Bld) 66.6 % [facility] Platelet mean volume (Bld) [Entitic vol] 9.8 fL 7.5 - 12.5 fL [facility] Platelets (Bld) [#/Vol] 281 10*3/uL [facility] RBC (Bld) [#/Vol] 4.42 10*6/uL [facility] WBC (Bld) [#/Vol] 5.2 10*3/uL [facility] Lipid 1996 panelon 4 Cholesterol [Mass/Vol] 188 mg/dL [facility] [place] - 200 mg/dL [facility] Cholesterol in HDL [Mass/Vol] 93 mg/dL > OR = 40 [facility] Cholesterol in LDL [Mass/Vol] 77 mg/dL mg/dL (calc) [facility] Comment on above: Reference range: <10 0 Desirable range <100 mg/dL for primary prevention; <70 mg/dL for patients with CHD or diabetic patients with > or = 2 CHD risk factors. LDL-C is now calculated using the iRchmond-Gayle calculation, which is a validated novel method providing better accuracy than the Friedewald equation in the estimation of LDL-C. [place] PAN et al. DARION. 2013;310(19): 3981-0318 (http://education.Hiptype.com/faq/CTH148) Cholesterol non HDL [Mass/Vol] 95 mg/dL [facility] Comment on above: For patients with di abetes plus 1 major ASCVD risk factor, treating to a non-HDL-C goal of <100 mg/dL (LDL-C of <70 mg/dL) is considered a therapeutic option. Cholesterol.total/C holesterol in HDL [Mass ratio] 2 {ratio} [facility] Triglyceride [Mass/Vol] 96 mg/dL NINF - 150 mg/dL [facility] No Panel Informationon 06-21 [facility] Interpretation and review of laboratory results Abnormal [facility] PSA, TOTAL, MONITORINGon PSA, TOTAL, MONITORING 1.47 ng/mL Normal < OR = 4.00 [facility] Comment on above: Result Comment: The total PSA value from this assay system is standardized against the WHO standard. The test result will be approximately 20% lower when compared to the equimolar-standardized total PSA ([place]). Comparison of serial PSA results should be interpreted with this fact in mind. This test was performed using the Siemens chemiluminescent method. Values obtained from different assay methods cannot be used interchangeably. PSA levels, regardless of value, should not be interpreted as absolute evidence of the presence or absence of disease. Performed By: #### 3 [id number], [id number], 7600, [id number] #### [facility] [address], [address] [place] [id number] [place] Worker: Jerman Awad MD TSH DL <= 0.005 mIU/L [facility] 1 08-21-2023 TSH Qn 3.09 m[IU]/L [facility] TSH W/REFLEX TO FT4on 2023 TSH W/REFLEX TO FT4 3.09 mIU/L Normal 0.40-4.50 [facility] Comment on above: Performed By: #### 3 [id number], 6399, 5220, [id number] #### [facility] [address], [address] [place] [id number] [place] Worker: Jerman Awad MD Comprehensive metabolic 2000 panelon 07-06-2023 Albumin [Mass/Vol] 4.7 g/dL 3.2 - 5.2 g/dL [facility] ALP [Catalytic activity/Vol] 50 U/L 40 - 150 U/L [facility] ALT [Catalytic activity/Vol] 24 U/L 0-50 U/L [facility] Anion gap [Moles/Vol] 18 mmol/L 10 - 20 mmol/L [facility] AST [Catalytic activity/Vol] 22 U/L 0-50 U/L [facility] Bilirubin [Mass/Vol] 0.4 mg/dL 0.0 - 1.3 mg/dL [facility] Calcium [Mass/Vol] 9.5 mg/dL 8.4 - 10. 2 mg/dL [facility] Chloride [Moles/Vol] 103 mmol/L 98 - 108 mmol/L [facility] Creatinine [Mass/Vol] 0.81 mg/dL 0.80 - 1.30 mg/dL [facility] GFR/1.73 sq M.predicted CKD-EPI (S/P/Bld) [Vol rate/Area] 100 - PINF [facility] Comment on above: Estimated GFR was ca lculated using the 2020 CKD-EPI creatinine equation. Glucose [Mass/Vol] 98 mg/dL 65 - 99 mg/dL [facility] HCO3 [Moles/Vol] 26 mmol/L 21 - 32 mmol/L [facility] Interpretation and review of laboratory results Abnormal [facility] Potassium [Moles/Vol] 4.6 mmol/L 3.5 - 5.1 mmol/L [facility] Protein [Mass/Vol] 7.2 g/dL 6.0 - 8.0 g/dL [facility] Sodium [Moles/Vol] 142 mmol/L 135 - 145 mmol/L [facility] Urea nitrogen [Mass/Vol] 8 mg/dL 8 - 25 mg/dL [facility] Urea nitrogen/Creatinine [Mass ratio] 9.9 mg/mg Low 10.0 - 20.0 [facility] has implemented the eGFR calculation approach that does not have a coefficient for race that conforms to the NKF-ASN Task Force Recommendations. [facility] Lipid 1996 panelon 3 Cholesterol [Mass/Vol] 221 mg/dL High 100 - 199 mg/dL [facility] Comment on above: National Cholesterol Education Program Guidelines: Cholesterol Desirable: <200 mg/dL Borderline High: 200-239 mg/dL High: greater than or equal to 240 mg/dL Cholesterol in HDL [Mass/Vol] 116 mg/dL 40 - 59 mg/dL [facility] Cholesterol in LDL [Mass/Vol] 98 mg/dL 10 - 130 mg/dL [facility] Comment on above: National Cholesterol Education Program Guidelines: LDL Cholesterol Optimal: <100 mg/dL Near Optimal/above Optimal: 100-129 mg/dL Borderline High: 130-159 mg/dL High: 160-189 mg/dL Very High: greater than or equal to 190 mg/dL Cholesterol non HDL [Mass/Vol] 105 mg/dL [facility] Comment on above: National Cholesterol Education Program Guidelines: NON HDL Cholesterol Desirable: <130 mg/dL Borderline High: 130-159 mg/dL High: 160-189 mg/dL Very High: > or = 190 mg/dL Cholesterol.total/C holesterol in HDL [Mass ratio] 1.9 {ratio} ratio [facility] Comment on above: Males Cholesterol/HD L Ratio: Average risk: 5.0 1/2 average risk: 3.4 2 x average risk: 9.6 Triglyceride [Mass/Vol] 37 mg/dL 30 - 150 mg/dL [facility] Comment on above: National Cholesterol Education Program Guidelines: Triglyceride Normal: <150 mg/dL Borderline High: 150-199 mg/dL High: 200-499 mg/dL Very High: greater than or equal to 500 mg/dL No Panel Informationon 07-06 Interpretation and review of laboratory results Abnormal [facility] PSA Monitoron 07-06-2023 Prostate specific Ag [Mass/Vol] 1.67 ng/mL High 0.00 - 0.99 ng/mL [facility] Comment on above: Per the National [facility] prehensive Cancer Network (NCCN) Guidelines: . Repeat testing every 1-2 years . PSA> 3.0 ng/ml is positive regardless of age . PSA normal values are based upon a patient with a normal Digital Rectal Exam (JUICE). A JUICE suspicious for cancer at any PSA level is an indication for biopsy. . Any serum PSA level in a patient previously treated for prostate cancer should be interpreted with caution. . NCCN guidelines do not apply to men <45 years old. A PSA result of 1-3 ng/ml may be positive in these men and should be interpreted with care. TSH DL <= 0.005 mIU/L [facility] 1 09-06-2022 Interpretation and review of laboratory results Normal [facility] TSH Qn 2.25 m[IU]/L [facility] Comprehensive metabolic 2000 panelon 09-08-2022 Albumin [Mass/Vol] 4.6 g/dL 3.2 - 5.2 g/dL [facility] ALP [Catalytic activity/Vol] 61 U/L 40 - 150 U/L [facility] ALT [Catalytic activity/Vol] 18 U/L 0 - 40 U/L [facility] Anion gap [Moles/Vol] 16 mmol/L 10 - 20 mmol/L [facility] AST [Catalytic activity/Vol] 17 U/L 0 - 45 U/L [facility] Bilirubin [Mass/Vol] 0.3 mg/dL 0.0 - 1.3 mg/dL [facility] Calcium [Mass/Vol] 10.0 mg/dL 8.4 - 10. 2 mg/dL [facility] Chloride [Moles/Vol] 103 mmol/L 98 - 108 mmol/L [facility] Creatinine [Mass/Vol] 0.92 mg/dL 0.80 - 1.30 mg/dL [facility] GFR/1.73 sq M.predicted CKD-EPI (S/P/Bld) [Vol rate/Area] 95 - PINF [facility] Comment on above: Estimated GFR was ca lculated using the 2020 CKD-EPI creatinine equation. Glucose [Mass/Vol] 92 mg/dL 65 - 99 mg/dL [facility] HCO3 [Moles/Vol] 27 mmol/L 21 - 32 mmol/L [facility] Interpretation and review of laboratory results Abnormal [facility] Potassium [Moles/Vol] 4.8 mmol/L 3.5 - 5.1 mmol/L [facility] Protein [Mass/Vol] 7.1 g/dL 6.0 - 8.0 g/dL [facility] Sodium [Moles/Vol] 141 mmol/L 135 - 145 mmol/L [facility] Urea nitrogen [Mass/Vol] 9 mg/dL 8 - 25 mg/dL [facility] Urea nitrogen/Creatinine [Mass ratio] 9.8 mg/mg Low 10.0 - 20.0 [facility] has implemented the eGFR calculation approach that does not have a coefficient for race that conforms to the NKF-ASN Task Force Recommendations. [facility] Lipid 1996 panelon 3 Cholesterol [Mass/Vol] 186 mg/dL 100 - 199 mg/dL [facility] Comment on above: National Cholesterol Education Program Guidelines: Cholesterol Desirable: <200 mg/dL Borderline High: 200-239 mg/dL High: greater than or equal to 240 mg/dL Cholesterol in HDL [Mass/Vol] 95 mg/dL 40 - 59 mg/dL [facility] Cholesterol in LDL [Mass/Vol] 81 mg/dL 10 - 130 mg/dL [facility] Comment on above: National Cholesterol Education Program Guidelines: LDL Cholesterol Optimal: <100 mg/dL Near Optimal/above Optimal: 100-129 mg/dL Borderline High: 130-159 mg/dL High: 160-189 mg/dL Very High: greater than or equal to 190 mg/dL Cholesterol non HDL [Mass/Vol] 91 mg/dL [facility] Comment on above: National Cholesterol Education Program Guidelines: NON HDL Cholesterol Desirable: <130 mg/dL Borderline High: 130-159 mg/dL High: 160-189 mg/dL Very High: > or = 190 mg/dL Cholesterol.total/C holesterol in HDL [Mass ratio] 2.0 {ratio} ratio [facility] Comment on above: Males Cholesterol/HD L Ratio: Average risk: 5.0 1/2 average risk: 3.4 2 x average risk: 9.6 Triglyceride [Mass/Vol] 51 mg/dL 30 - 150 mg/dL [facility] Comment on above: National Cholesterol Education Program Guidelines: Triglyceride Normal: <150 mg/dL Borderline High: 150-199 mg/dL High: 200-499 mg/dL Very High: greater than or equal to 500 mg/dL No Panel Informationon 09-08 [facility] PSA Monitoron 09-08-2022 Prostate specific Ag [Mass/Vol] 1.38 ng/mL High 0.00 - 0.99 ng/mL [facility] Comment on above: Per the National [facility] prehensive Cancer Network (NCCN) Guidelines: . Repeat testing every 1-2 years . PSA> 3.0 ng/ml is positive regardless of age . PSA normal values are based upon a patient with a normal Digital Rectal Exam (JUICE). A JUICE suspicious for cancer at any PSA level is an indication for biopsy. . Any serum PSA level in a patient previously treated for prostate cancer should be interpreted with caution. . NCCN guidelines do not apply to men <45 years old. A PSA result of 1-3 ng/ml may be positive in these men and should be interpreted with care. Prostate specific Ag [Mass/V ol]on 09-08-2022 Interpretation and review of laboratory results Abnormal [facility] TSH DL <= 0.005 mIU/L Qnon 0 09-08-2022 Interpretation and review of laboratory results Normal [facility] TSH Qn 2.42 m[IU]/L [facility] Comprehensive metabolic 2000 panelon 09-23-2021 Albumin [Mass/Vol] 4.7 g/dL 3.2 - 5.2 g/dL [facility] ALP [Catalytic activity/Vol] 60 U/L 40 - 150 U/L [facility] ALT [Catalytic activity/Vol] 21 U/L 0 - 40 U/L [facility] Anion gap [Moles/Vol] 19 mmol/L 10 - 20 mmol/L [facility] AST [Catalytic activity/Vol] 17 U/L 0 - 45 U/L [facility] Bilirubin [Mass/Vol] 0.6 mg/dL 0.0 - 1.3 mg/dL [facility] Calcium [Mass/Vol] 9.6 mg/dL 8.4 - 10. 2 mg/dL [facility] Chloride [Moles/Vol] 102 mmol/L 98 - 108 mmol/L [facility] Creatinine [Mass/Vol] 0.91 mg/dL 0.50 - 1.30 [facility] GFR/1.73 sq M.predicted CKD-EPI (S/P/Bld) [Vol rate/Area] 91 >=60 mL/min/1.73 m2 [facility] Glucose [Mass/Vol] 104 mg/dL High 65 - 99 mg/dL [facility] HCO3 [Moles/Vol] 23 mmol/L 21 - 32 mmol/L [facility] Interpretation and review of laboratory results Abnormal [facility] Potassium [Moles/Vol] 4.5 mmol/L 3.5 - 5.1 mmol/L [facility] Protein [Mass/Vol] 7.0 g/dL 6.0 - 8.0 g/dL [facility] Sodium [Moles/Vol] 139 mmol/L 135 - 145 mmol/L [facility] Urea nitrogen [Mass/Vol] 6 mg/dL Low 8 - 25 mg/dL [facility] Urea nitrogen/Creatinine [Mass ratio] 6.6 mg/mg Low [facility] The eGFR should be used for monitoring renal function only and not for medication dosing. [facility] Lipid 1996 panelon 2 Cholesterol [Mass/Vol] 224 mg/dL High 100 - 199 mg/dL [facility] Comment on above: National Cholesterol Education Program Guidelines: Cholesterol Desirable: <200 mg/dL Borderline High: 200-239 mg/dL High: greater than or equal to 240 mg/dL Cholesterol in HDL [Mass/Vol] 82 mg/dL 40 - 59 [facility] Cholesterol in LDL [Mass/Vol] 127 mg/dL 10 - 130 mg/dL [facility] Comment on above: National Cholesterol Education Program Guidelines: LDL Cholesterol Optimal: <100 mg/dL Near Optimal/above Optimal: 100-129 mg/dL Borderline High: 130-159 mg/dL High: 160-189 mg/dL Very High: greater than or equal to 190 mg/dL Cholesterol non HDL [Mass/Vol] 142 mg/dL [facility] Comment on above: National Cholesterol Education Program Guidelines: NON HDL Cholesterol Desirable: <130 mg/dL Borderline High: 130-159 mg/dL High: 160-189 mg/dL Very High: > or = 190 mg/dL Cholesterol.total/C holesterol in HDL [Mass ratio] 2.7 {ratio} ratio [facility] Comment on above: Males Cholesterol/HD L Ratio: Average risk: 5.0 1/2 average risk: 3.4 2 x average risk: 9.6 Triglyceride [Mass/Vol] 74 mg/dL 30 - 150 mg/dL [facility] Comment on above: National Cholesterol Education Program Guidelines: Triglyceride Normal: <150 mg/dL Borderline High: 150-199 mg/dL High: 200-499 mg/dL Very High: greater than or equal to 500 mg/dL No Panel Informationon 09-23 Interpretation and review of laboratory results Abnormal [facility] PSA Monitoron 09-23-2021 Prostate specific Ag [Mass/Vol] 1.25 ng/mL High 0.00 - 0.99 ng/mL [facility] Comment on above: Per the National [facility] prehensive Cancer Network (NCCN) Guidelines: . Repeat testing every 1-2 years . PSA> 3.0 ng/ml is positive regardless of age . PSA normal values are based upon a patient with a normal Digital Rectal Exam (JUICE). A JUICE suspicious for cancer at any PSA level is an indication for biopsy. . Any serum PSA level in a patient previously treated for prostate cancer should be interpreted with caution. . NCCN guidelines do not apply to men <45 years old. A PSA result of 1-3 ng/ml may be positive in these men and should be interpreted with care. TSH DL <= 0.005 mIU/L Qnon 0 09-23-2021 Interpretation and review of laboratory results Normal [facility] TSH Qn 2.80 m[IU]/L [facility] Comprehensive Metabolic Pane anne 09-19-2020 Albumin [Mass/Vol] 4.4 g/dL 3.2 - 5.2 g/dL [facility] ALP [Catalytic activity/Vol] 69 U/L 40 - 150 U/L [facility] ALT [Catalytic activity/Vol] 16 U/L 0 - 40 U/L [facility] Anion gap [Moles/Vol] 15 mmol/L 10 - 20 mmol/L [facility] AST [Catalytic activity/Vol] 18 U/L 0 - 45 U/L [facility] Bilirubin [Mass/Vol] 0.4 mg/dL 0.0 - 1.3 mg/dL [facility] Calcium [Mass/Vol] 9.1 mg/dL 8.4 - 10. 2 mg/dL [facility] Chloride [Moles/Vol] 104 mmol/L 98 - 108 mmol/L [facility] Creatinine [Mass/Vol] 1.04 mg/dL 0.50 - 1.30 [facility] GFR/1.73 sq M predicted among non-blacks MDRD (S/P/Bld) [Vol rate/Area] The eGFR should be used for monitoring renal function only and not for medication dosing. [facility] GFR/1.73 sq M.predicted CKD-EPI (S/P/Bld) [Vol rate/Area] 78 >=60 mL/min/1.73 m2 [facility] Glucose [Mass/Vol] 95 mg/dL 65 - 99 mg/dL [facility] HCO3 [Moles/Vol] 26 mmol/L 21 - 32 mmol/L [facility] Interpretation and review of laboratory results Normal [facility] Potassium [Moles/Vol] 5.1 mmol/L 3.5 - 5.1 mmol/L [facility] Protein [Mass/Vol] 6.8 g/dL 6.0 - 8.0 g/dL [facility] Sodium [Moles/Vol] 140 mmol/L 135 - 145 mmol/L [facility] Urea nitrogen [Mass/Vol] 11 mg/dL 8 - 25 mg/dL [facility] Urea nitrogen/Creatinine [Mass ratio] 10.6 mg/mg [facility] Lipid Panelon 09-19-2020 Cholesterol [Mass/Vol] 273 mg/dL High 100 - 199 mg/dL [facility] Cholesterol in HDL [Mass/Vol] 55 mg/dL 40 - 59 [facility] Cholesterol in LDL [Mass/Vol] [facility] Comment on above: Calculated LDL inval id, triglycerides >400 mg/dl Cholesterol non HDL [Mass/Vol] 218 mg/dL [facility] Comment on above: National Cholesterol Education Program Guidelines: NON HDL Cholesterol Desirable: <130 mg/dL Borderline High: 130-159 mg/dL High: 160-189 mg/dL Very High: > or = 190 mg/dL Cholesterol.total/C holesterol in HDL [Mass ratio] 5.0 {ratio} ratio [facility] Comment on above: Males Cholesterol/HD L Ratio: Average risk: 5.0 1/2 average risk: 3.4 2 x average risk: 9.6 Triglyceride [Mass/Vol] 540 mg/dL High 30 - 150 mg/dL [facility] Otheron 09-19-2020 Interpretation and review of laboratory results Abnormal [facility] PSA Monitoron 09-19-2020 Prostate specific Ag [Mass/Vol] 1.25 ng/mL High 0.00 - 0.99 ng/mL [facility] Comment on above: Per the National Com prehensive Cancer Network (NCCN) Guidelines: . Repeat testing every 1-2 years . PSA> 3.0 ng/ml is positive regardless of age . PSA normal values are based upon a patient with a normal Digital Rectal Exam (JUICE). A JUICE suspicious for cancer at any PSA level is an indication for biopsy. . Any serum PSA level in a patient previously treated for prostate cancer should be interpreted with caution. . NCCN guidelines do not apply to men <45 years old. A PSA result of 1-3 ng/ml may be positive in these men and should be interpreted with care. TSH with Reflex Free T4on Interpretation and review of laboratory results Normal [facility] TSH Qn 2.23 m[IU]/L [facility] Vital Signs Date Time Vital Sign Value Performing Clinician Faci nathanael 07-14-2024 14:49-0500 Diastolic blood pressure 69 mm[Hg] Rae Martin MD Work Phone: [facility] 07-14-2024 14:49-0500 Heart rate 79 /min Rae Martin MD Work Phone: [facility] 07-14-2024 14:49-0500 Respiratory rate 14 /min Rae Martin MD Work Phone: [facility] 07-14-2024 14:49-0500 SaO2% (BldA) [Mass fraction] 99 % Rae Martin MD Work Phone: [facility] 07-14-2024 14:49-0500 Systolic blood pressure 113 mm[Hg] Rae Martin MD Work Phone: [facility] 07-14-2024 13:27-0500 Body mass index (BMI) [Ratio] 23.47 kg/m2 Rae Martin MD Work Phone: [facility] 07-14-2024 13:27-0500 Body temperature 97.39 [degF] Rae Martin MD Work Phone: [facility] 07-14-2024 13:27-0500 Body weight 74.2 kg Rae Martin MD Work Phone: [facility] 07-03-2024 14:30-0500 Body height 177.8 cm Odalys Azael CAN LINE EXAMINER.AGRICULTURAL CONSULTANT Work Phone: [facility] 07-03-2024 14:30-0500 Body mass index (BMI) [Ratio] 23.47 kg/m2 Odalys Azael CAN LINE EXAMINER.AGRICULTURAL CONSULTANT Work Phone: [facility] 07-03-2024 14:30-0500 Body temperature 98.1 [degF] Odalys Azael CAN LINE EXAMINER.AGRICULTURAL CONSULTANT Work Phone: [facility] 07-03-2024 14:30-0500 Body weight 74.21 kg Odalys Azael CAN LINE EXAMINER.AGRICULTURAL CONSULTANT Work Phone: [facility] 07-03-2024 14:30-0500 Diastolic blood pressure 80 mm[Hg] Odalys Azael CAN LINE EXAMINER.AGRICULTURAL CONSULTANT Work Phone: [facility] 07-03-2024 14:30-0500 Heart rate 60 /min Odalys Azael CAN LINE EXAMINER.AGRICULTURAL CONSULTANT Work Phone: [facility] 07-03-2024 14:30-0500 SaO2% (BldA) [Mass fraction] 96 % Odalys Azael CAN LINE EXAMINER.AGRICULTURAL CONSULTANT Work Phone: [facility] 07-03-2024 14:30-0500 Systolic blood pressure 140 mm[Hg] Odalys Azael CAN LINE EXAMINER.AGRICULTURAL CONSULTANT Work Phone: [facility] 06-20-2024 15:16-0500 Diastolic blood pressure 84 mm[Hg] Christy Mcgee MD Work Phone: [facility] 06-20-2024 15:16-0500 Heart rate 64 /min Christy Mcgee MD Work Phone: [facility] 06-20-2024 15:16-0500 Systolic blood pressure 137 mm[Hg] Christy Mcgee MD Work Phone: [facility] 06-20-2024 15:08-0500 Body height 177.8 cm Christy Mcgee MD Work Phone: [facility] 06-20-2024 15:08-0500 Body mass index (BMI) [Ratio] 23.1 kg/m2 Christy Mcgee MD Work Phone: [facility] 06-20-2024 15:08-0500 Body temperature 98.4 [degF] Christy Mcege MD Work Phone: [facility] 06-20-2024 15:08-0500 Body weight 73.03 kg Christy Mcgee MD Work Phone: [facility] 07-06-2023 14:13-0500 Body height 177.8 cm Christy Mcgee MD Work Phone: [facility] 07-06-2023 14:13-0500 Body mass index (BMI) [Ratio] 22.89 kg/m2 Christy Mcgee MD Work Phone: [facility] 07-06-2023 14:13-0500 Body temperature 98.29 [degF] Christy Mcgee MD Work Phone: [facility] 07-06-2023 14:13-0500 Body weight 72.35 kg Christy Mcgee MD Work Phone: [facility] 07-06-2023 14:13-0500 Diastolic blood pressure 81 mm[Hg] Christy Mcgee MD Work Phone: [facility] 07-06-2023 14:13-0500 Heart rate 75 /min Christy Mcgee MD Work Phone: [facility] 07-06-2023 14:13-0500 Systolic blood pressure 138 mm[Hg] Christy Mcgee MD Work Phone: [facility] 09-08-2022 13:01-0500 Body height 177.8 cm Christy Mcgee MD Work Phone: [facility] 09-08-2022 13:01-0500 Body mass index (BMI) [Ratio] 23.1 kg/m2 Christy Mcgee MD Work Phone: [facility] 09-08-2022 13:01-0500 Body temperature 98.71 [degF] Christy Mcgee MD Work Phone: [facility] 09-08-2022 13:01-0500 Body weight 73.03 kg Christy Mcgee MD Work Phone: [facility] 09-08-2022 13:01-0500 Diastolic blood pressure 80 mm[Hg] Christy Mcgee MD Work Phone: [facility] 09-08-2022 13:01-0500 Heart rate 81 /min Christy Mcgee MD Work Phone: [facility] 09-08-2022 13:01-0500 Systolic blood pressure 134 mm[Hg] Christy Mcgee MD Work Phone: [facility] 09-23-2021 14:52-0500 Body height 177.8 cm Christy Mcgee MD Work Phone: [facility] 09-23-2021 14:52-0500 Body mass index (BMI) [Ratio] 23.68 kg/m2 Christy Mcgee MD Work Phone: [facility] 09-23-2021 14:52-0500 Body temperature 98.71 [degF] Christy Mcgee MD Work Phone: [facility] 09-23-2021 14:52-0500 Body weight 74.84 kg Christy Mcgee MD Work Phone: [facility] 09-23-2021 14:52-0500 Diastolic blood pressure 84 mm[Hg] Christy Mcgee MD Work Phone: [facility] 09-23-2021 14:52-0500 Heart rate 79 /min Christy Mcgee MD Work Phone: [facility] 09-23-2021 14:52-0500 Systolic blood pressure 131 mm[Hg] Christy Mcgee MD Work Phone: [facility] 06-11-2021 13:19-0500 Diastolic blood pressure 95 mm[Hg] Natali Nolan AGRICULTURAL CONSULTANT Work Phone: [facility] 06-11-2021 13:19-0500 Systolic blood pressure 180 mm[Hg] Natali Nolan AGRICULTURAL CONSULTANT Work Phone: [facility] 06-11-2021 12:58-0500 Body height 177.8 cm Natali Nolan AGRICULTURAL CONSULTANT Work Phone: [facility] 06-11-2021 12:58-0500 Body mass index (BMI) [Ratio] 24.11 kg/m2 Natali Nolan AGRICULTURAL CONSULTANT Work Phone: [facility] 06-11-2021 12:58-0500 Body temperature 98.1 [degF] Natali Nolan AGRICULTURAL CONSULTANT Work Phone: [facility] 06-11-2021 12:58-0500 Body weight 76.2 kg Natali Nolan AGRICULTURAL CONSULTANT Work Phone: [facility] 06-11-2021 12:58-0500 Heart rate 78 /min Natali Nolan AGRICULTURAL CONSULTANT Work Phone: [facility] 06-11-2021 12:58-0500 Respiratory rate 16 /min Natali Nolan AGRICULTURAL CONSULTANT Work Phone: [facility] 06-11-2021 12:58-0500 SaO2% (BldA) [Mass fraction] 96 % Natali Nolan AGRICULTURAL CONSULTANT Work Phone: [facility] 09-19-2020 13:16-0500 BMI (Body Mass Index) 24.69 kg/m2 [facility] 09-19-2020 13:16-0500 Body Temperature 97.59 [degF] Christy [facility] 09-19-2020 13:16-0500 Body weight 80.29 kg Christy [facility] 09-19-2020 13:16-0500 BP Diastolic 75 mm[Hg] Christy [facility] 09-19-2020 13:16-0500 BP Systolic 119 mm[Hg] Christy [facility] 09-19-2020 13:16-0500 Height 180.3 cm [facility] 09-19-2020 13:16-0500 Pulse (Heart Rate) 82 /min [facility] 03-19-2020 16:11-0400 BMI (Body Mass Index) 24.27 kg/m2 [facility] 03-19-2020 16:11-0400 Body Temperature 98.71 [degF] [facility] 03-19-2020 16:11-0400 Body weight 78.93 kg [facility] 03-19-2020 16:11-0400 BP Diastolic 78 mm[Hg] [facility] 03-19-2020 16:11-0400 BP Systolic 126 mm[Hg] [facility] 03-19-2020 16:11-0400 Height 180.3 cm [facility] 03-19-2020 16:11-0400 Pulse (Heart Rate) 64 /min [facility] 08-17-2019 13:12-0500 BMI (Body Mass Index) 23.85 kg/m2 [facility] 08-17-2019 13:12-0500 Body Temperature 97.81 [degF] [facility] 08-17-2019 13:12-0500 Body weight 77.56 kg Christy [facility] 08-17-2019 13:12-0500 BP Diastolic 88 mm[Hg] [facility] 08-17-2019 13:12-0500 BP Systolic 138 mm[Hg] [facility] 08-17-2019 13:12-0500 Height 180.3 cm [facility] 08-17-2019 13:12-0500 Pulse (Heart Rate) 73 /min [facility] 02-14-2019 15:05-0400 BMI (Body Mass Index) 23.43 kg/m2 [facility] 02-14-2019 15:05-0400 Body Temperature 97.5 [degF] [facility] 02-14-2019 15:05-0400 Body weight 76.2 kg [facility] 02-14-2019 15:05-0400 BP Diastolic 76 mm[Hg] [facility] 02-14-2019 15:05-0400 BP Systolic 132 mm[Hg] [facility] 02-14-2019 15:05-0400 Height 180.3 cm [facility] 02-14-2019 15:05-0400 Pulse (Heart Rate) 76 /min [facility] 08-16-2018 13:33-0500 BMI (Body Mass Index) 24.69 kg/m2 [facility] 08-16-2018 13:33-0500 Body Temperature 97.81 [degF] [facility] 08-16-2018 13:33-0500 BP Diastolic 95 mm[Hg] [facility] 08-16-2018 13:33-0500 BP Systolic 163 mm[Hg] [facility] 08-16-2018 13:33-0500 Height 180.3 cm [facility] 08-16-2018 13:33-0500 Pulse (Heart Rate) 69 /min [facility] 08-16-2018 13:33-0500 Pulse Oximetry 98 % [facility] 08-16-2018 13:33-0500 Weight 80.29 kg [facility] Encounters Encounter Date Encounter Type Care Provider Facility Start: 05-29-2025 ambulatory CHRISTY LEE [facility] Start: 07-21-2024 End: 07-21-2024 ambulatory ODALYS MURILLO Facility:[facility] Start: 07-21-2024 End: 07-21-2024 Patient encounter procedure Odalys Murillo CAN LINE EXAMINER.AGRICULTURAL CONSULTANT Work Phone: General Surgery Comment on above: History of colonic p olyps (Primary Dx) Start: 07-14-2024 End: 07-14-2024 ambulatory RAE MARTIN Facility:[facility] Start: 07-14-2024 End: 07-14-2024 Subsequent hospital visit by physician Rae Martin MD Work Phone: Ambulatory Surgery Comment on above: Screen for colon can cer [Z12.11] Start: 07-03-2024 End: 07-03-2024 ambulatory ODALYS MURILLO Facility:[facility] Start: 07-03-2024 End: 07-03-2024 Patient encounter procedure Odalys Murillo CAN LINE EXAMINER.AGRICULTURAL CONSULTANT Work Phone: General Surgery Comment on above: Screen for colon can cer (Primary Dx); Family history of colon cancer Start: 07-03-2024 End: 08-18-2024 Telephone encounter Odalys Aguilerair CAN LINE EXAMINER.AGRICULTURAL CONSULTANT Work Phone: General Surgery Comment on above: 07-14-2024 [facility] Start: 06-20-2024 End: 07-05-2024 Patient encounter status Christy Mcgee MD Work Phone: [facility] Start: 06-20-2024 End: 07-05-2024 Periodic preventive med est patient 40-64yrs Christy Mcgee MD Work Phone: [facility] Comment on above: Well adult exam (Venessa jose luis Dx); Screening for colon cancer; Essential hypertension; Psoriasis; Hyperlipidemia, unspecified hyperlipidemia type Well adult exam (Venessa jose luis Dx); Screening for colon cancer; Essential hypertension; Psoriasis; Hyperlipidemia, unspecified hyperlipidemia type; Anemia, unspecified type Start: 06-20-2024 End: 06-24-2024 ambulatory [facility] Start: 06-20-2024 End: 06-24-2024 Encounter for general adult medical examination without abnormal findings CHRISTY LEE [facility] Start: 07-06-2023 End: 07-10-2023 ambulatory [facility] Start: 07-06-2023 End: 07-10-2023 Encounter for general adult medical examination without abnormal findings [facility] Start: 07-06-2023 End: 07-06-2023 Patient encounter status Christy Mcgee MD Work Phone: [facility] Work Phone: Start: 07-06-2023 End: 07-06-2023 Periodic preventive med est patient 40-64yrs Christy Mcgee MD Work Phone: [facility] Comment on above: Well adult exam (Venessa jose luis Dx); Essential hypertension; Psoriasis; Seborrheic dermatitis; Hyperlipidemia, unspecified hyperlipidemia type Start: 05-07-2023 End: 05-07-2023 Emergency department patient visit 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); Hyperopia, bilateral; Regular astigmatism of left eye; Presbyopia Start: 09-08-2022 End: 09-12-2022 ambulatory CHRISTY MCGEE [facility] Start: 09-08-2022 End: 09-08-2022 Office outpatient visit 25 minutes Christy Mcgee MD Work Phone: [facility] Comment on above: Seborrheic dermatiti s (Primary Dx); Essential hypertension; Nocturia; Psoriasis; Hyperlipidemia, unspecified hyperlipidemia type Start: 08-25-2022 Refill Christy Jackson cism, MD Work Phone: [facility] Comment on above: Hyperlipidemia, unsp ecified hyperlipidemia type; Psoriasis; Essential hypertension Start: 09-23-2021 End: 09-23-2021 Patient encounter status Christy Mcgee MD Work Phone: [facility] Start: 09-23-2021 End: 09-23-2021 Periodic preventive med est patient 40-64yrs Christy Mcgee MD Work Phone: [facility] Comment on above: Well adult exam (Venessa jose luis Dx); Essential hypertension; Nocturia; Hyperlipidemia, unspecified hyperlipidemia type; Immunization due Start: 09-04-2021 Refill Christy Jackson cism, MD Work Phone: [facility] Comment on above: Essential hypertensi on; Hyperlipidemia, unspecified hyperlipidemia type Start: 06-11-2021 End: 06-11-2021 ambulatory CHRISTY LEE RADHA[facility]AN [facility] Start: 06-11-2021 End: 06-11-2021 Office outpatient visit 25 minutes Natali Nolan CNP Work Phone: [facility] [place] Comment on above: Dermatitis due to pl ants, including poison garry, sumac, and oak (Primary Dx); Elevated blood pressure reading in office with diagnosis of hypertension Start: 09-19-2020 End: 09-19-2020 Office outpatient visit 15 minutes Christy Mcgee Work Phone: [facility] Comment on above: Essential hypertensi on (Primary Dx); Nocturia Start: 03-19-2020 End: 03-19-2020 Office outpatient visit 15 minutes Christy Mcgee Work Phone: [facility] Comment on above: Essential hypertensi on (Primary Dx); Hyperlipidemia, unspecified hyperlipidemia type; Screening procedure Start: 08-17-2019 End: 08-17-2019 Office outpatient visit 15 minutes Christy Mcgee Work Phone: [facility] Comment on above: Essential hypertensi on (Primary Dx); Hyperlipidemia, unspecified hyperlipidemia type; Elevated PSA Start: 02-14-2019 End: 02-14-2019 Periodic preventive med est patient 40-64yrs Christy Mcgee Work Phone: [facility] Comment on above: Well adult exam (Venessa jose luis Dx); Hyperlipidemia, unspecified hyperlipidemia type; Essential hypertension; Seborrheic dermatitis; Nocturia Start: 08-16-2018 End: 08-16-2018 Office outpatient visit 15 minutes Christy Rosaarian Mcgee Work Phone: [facility] Comment on above: Essential hypertensi on (Primary Dx); Hyperlipidemia, unspecified hyperlipidemia type; Psoriasis; Immunization due Start: 06-22-2018 Patient encounter procedure EXTERNAL PROVIDER [facility] Procedures Date Procedure Procedure Detail Performing Clinician Start: 07-14-2024 Colonoscopy flx dx w /collj spec when pfrmd Odalys Murillo APRN.AGRICULTURAL CONSULTANT Work Phone: Start: 07-14-2024 Colonoscopy Rae Martin MD Work Phone: Start: 06-20-2024 Comprehensive metabo lic panel Christy Mcgee MD Work Phone: Start: 06-20-2024 Lipid panel Christy Mcgee MD Work Phone: Start: 06-20-2024 Lipid 1996 panel - S zabrina or Plasma Odalys Murillo APRN.AGRICULTURAL CONSULTANT Work Phone: Start: 07-06-2023 Adult depression scr eening assessment Christy Mcgee MD Work Phone: Start: 09-23-2021 Adult depression scr eening assessment Christy Mcgee MD Work Phone: Start: 02-14-2019 Adult depression scr eening assessment Christy Mcgee Start: 08-16-2018 Adult depression scr eening assessment Christy Mcgee Start: 03-21-2008 Colonoscopy Ofelia gotti OD Work Phone: Plan of Treatment Date Care Activity Detail Author Start: 01-12-2036 Respiratory Syncytia l Virus Immunization: Risk, 60-74 Risk, or 75+ (1 - 1-dose 75+ series) Respiratory Syncytial Virus Immunization: Risk, 60-74 Risk, or 75+ (1 - 1-dose 75+ series) [facility] Start: 01-12-2036 RSV Vaccine (1 - 1-d ose 75+ series) RSV Vaccine (1 - 1-dose 75+ series) [facility] Start: 07-14-2029 Screening for malign ant neoplasm of colon [facility] Start: 06-20-2029 Lipid panel Lipid Screening [facility] Start: 06-20-2029 Prostate specific an tigen measurement Prostate Cancer Screening Discussion [facility] Start: 09-08-2027 PROSTATE CANCER SCRE ENING DISCUSSION PROSTATE CANCER SCREENING DISCUSSION [facility] Start: 07-22-2027 Tetanus vaccination [facility] Start: 07-22-2027 Urine microalbumin profile DTa P,Tdap,Td Vaccine (2 - Td or Tdap) [facility] Start: 06-20-2027 Diabetes Screening Diabetes Screenin g [facility] Start: 06-20-2026 Prostate specific an tigen measurement PSA Level [facility] Start: 07-06-2025 Prostate specific an tigen measurement PSA Level [facility] Start: 06-20-2025 Administration of he rpes zoster vaccine Zoster Vaccines (1 of 2) [facility] Comment on above: Postponed from 01/11 (Patient Refused) Start: 06-20-2025 COVID-19 Vaccine () COVID-19 Vaccine () [facility] Comment on above: Postponed from 03/26 (Patient Refused) Start: 06-20-2025 History and physical examination, annual for health maintenance Wellness Visit [facility] Start: 07-21-2024 End: 07-21-2024 Patient encounter procedure 07/21/2024 2:30 PM EST Office Visit General Surgery [address] [place] [address] Odalys Murillo APRN.AGRICULTURAL CONSULTANT [address] [place] [address] 07-14 COLONOSCOPY FOLLOW UP General Surgery Comment on above: 07-14 COLONOSCOPY FO LLOW UP Start: 07-14-2024 End: 07-14-2024 Patient encounter procedure 07/14/2024 2:45 PM EST Appointment Ambulatory Surgery [address] [place] [address] Rae Martin MD [address] [place] [id number] Ambulatory Surgery Start: 07-06-2024 Depression screening using PHQ-9 (Patient Health Questionnaire 9) score [facility] Start: 07-06-2024 History and physical examination, annual for health maintenance Wellness Visit [facility] Start: 03-26-2024 Covid-19 Vaccine ( season) Covid-19 Vaccine ( season) [facility] Start: 01-04-2024 End: 01-04-2024 Patient encounter procedure 01/04/2024 2:15 PM EDT Office Visit [facility] [address] [place] [address] Christy Mcgee MD [address] [place] [address] [facility] Start: 09-24-2023 Prostate specific an tigen measurement PSA Level [facility] Start: 03-26-2023 Influenza vaccination INFLUENZA (#1) [facility] Start: 03-02-2023 End: 03-02-2023 Patient encounter procedure 03/02/2023 Office Visit Primary Care Christy Mcgee MD [address] [place] [address] [facility] Start: 09-23-2022 Depression screening using PHQ-9 (Patient Health Questionnaire 9) score Depression Screening (PHQ-2/9) [facility] Start: 09-23-2022 History and physical examination, annual for health maintenance Wellness Visit [facility] Start: 09-19-2022 Prostate specific an tigen measurement PSA Level [facility] Start: 09-08-2022 End: 09-08-2022 Patient encounter procedure 09/08/2022 Office Visit Primary Care Christy Mcgee MD [address] [place] [address] [facility] Start: 07-26-2022 DEPRESSION ASSESSMENT DEPRESSION ASS ESSMENT [facility] Start: 03-26-2022 Influenza vaccination Sequenti al Influenza Vaccine (#1) [facility] Start: 03-23-2022 End: 03-23-2022 Patient encounter procedure 03/23/2022 Office Visit Primary Care Christy Mcgee MD [address] [place] [address] [facility] Start: 09-23-2021 End: 09-23-2021 Patient encounter procedure 09/23/2021 Office Visit Primary Care Christy Mcgee MD [address] [place] [address] [facility] Start: 08-01-2021 Prostate specific an tigen measurement PSA Level [facility] Start: 03-26-2021 Influenza vaccination Sequenti al Influenza Vaccine (#1) [facility] Start: 03-19-2021 End: 03-19-2021 Office Visit 03/19/2021 Office Visit Primary Care Christy Mcgee MD [address] [place] [address] [place] [address] [phone] [facility] Start: 09-19-2020 End: 09-19-2020 Office Visit 09/19/2020 Office Visit Primary Care Christy Mcgee MD [address] [place] [address] [place] [address] [phone] [facility] Start: 03-26-2020 Influenza vaccinatio n given Sequential Influenza Vaccine (#1) [facility] Start: 02-15-2020 Depression screening using PHQ-9 (Patient Health Questionnaire 9) score [facility] Start: 02-15-2020 History and physical examination, annual for health maintenance Wellness Visit [facility] Start: 02-15-2020 Screening for substa nce abuse SUBSTANCE ABUSE SCREENING (AUDIT-C) [facility] Start: 08-16-2019 Depression screening using PHQ-9 (Patient Health Questionnaire 9) score DEPRESSION SCREENING (PHQ9) [facility] Start: 08-16-2019 Screening for substa nce abuse SUBSTANCE ABUSE SCREENING (AUDIT-C) [facility] Start: 03-26-2019 Influenza vaccinatio n given SEQUENTIAL INFLUENZA VACCINE (#1) [facility] Start: 11-21-2016 DIABETES SCREEN DIABETES SCREEN [facility] Start: 03-21-2013 Colonoscopy COLONOSCOPY [facility] Start: 03-21-2013 COLORECTAL CANCER SCREENING COLORECTAL CANCER SCREENING [facility] Start: 03-21-2013 Screening for malign ant neoplasm of colon [facility] Start: 2011 Administration of he rpes zoster vaccine Zoster Vaccines (1 of 2) [facility] Start: 2011 Screening for malign ant neoplasm of colon [facility] Start: 2011 SHINGRIX VACCINE (1 of 2) FAITH GRIX VACCINE (1 of 2) [facility] Start: 01-16-2009 FECAL OCCULT BLOOD FECAL OCCULT BLOO D [facility] Start: 01-16-2009 Screening for malign ant neoplasm of colon Fecal Occult Blood [facility] Start: 2006 COLOGUARD (FIT-DNA) COLOGUARD (FIT-D NA) [facility] Start: [address] COLONOGRAPHY [facility] Start: 2006 Screening for malign ant neoplasm of colon [facility] Start: 2006 SIGMOIDOSCOPY SIGMOIDOSCOPY [facility] Start: 01-12-1996 LIPID SCREEN LIPID SCREEN [facility] Start: 01-12-1980 Urine microalbumin profile DTAP,TDAP ,TD (1 - Tdap) [facility] Start: 1979 Anxiety Screening Anxiety Screening [facility] Start: [address] [facility] Start: 1979 HEPATITIS C SCREENING HEPATITIS C [facility] Start: 1979 Hepatitis C screening Hepatitis C [facility] Start: 1979 HIV SCREENING HIV SCREENING [facility] Start: 1979 HIV screening HIV Screening [facility] Start: 1977 COVID-19 Vaccine (1 of 2) COVI D-19 Vaccine (1 of 2) [facility] Start: 01-12-1976 HIV screening HIV Screening [facility] Start: 1973 Adolescent depressio n screening assessment Depression Screening (PHQ9) [facility] Start: 1973 COVID-19 Vaccine (1) COVID-19 Vaccin e (1) [facility] Start: 1966 COVID-19 Vaccine (1) COVID-19 Vaccin e (1) [facility] Start: 01-12-1964 History and physical examination, annual for health maintenance Wellness Visit [facility] Start: 1961 COVID-19 Vaccine (#1) COVID-19 Vacci ne (#1) [facility] Start: 1961 Depression screening using PHQ-9 (Patient Health Questionnaire 9) score Depression Screening (PHQ9) [facility] Start: 1961 Prostate specific an tigen measurement PSA Level [facility] Start: 1961 Protein mass conc COLONOSCOPY [facility] Start: 1960 Screening for malign ant neoplasm of colon [facility] End: 02-15-2020 Complete blood count with white cell differential, manual CBC and Differential Lab Routine Essential hypertension 1 Occurrences starting 02/14/2019 until 02/15/2020 [facility] Comment on above: 1 Occurrences starti ng 02/14/2019 until 02/15/2020 End: 06-20-2025 Complete blood count with white cell differential, manual CBC and Differential Lab Routine Well adult exam 1 Occurrences starting 06/20/2024 until 06/20/2025 [facility] Work Phone: Comment on above: 1 Occurrences starti ng 06/20/2024 until 06/20/2025 End: 07-17-2025 Complete blood count with white cell differential, manual CBC and Differential Lab Routine Anemia, unspecified type 1 Occurrences starting 07/17/2024 until 07/17/2025 [facility] Comment on above: 1 Occurrences starti ng 07/17/2024 until 07/17/2025 End: 02-15-2020 Comprehensive metabolic 2000 panel Comprehensive Metabolic Panel Lab Routine Essential hypertension 1 Occurrences starting 02/14/2019 until 02/15/2020 [facility] Comment on above: 1 Occurrences starti ng 02/14/2019 until 02/15/2020 End: 03-19-2021 Human immunodeficiency virus test HIV Antibody (HIV1/HIV2) Lab Routine Screening procedure 1 Occurrences starting 03/19/2020 until 03/19/2021 [facility] Comment on above: 1 Occurrences starti ng 03/19/2020 until 03/19/2021 End: 07-17-2025 Iron measurement Iron Study with Ferritin Lab Routine Anemia, unspecified type 1 Occurrences starting 07/17/2024 until 07/17/2025 [facility] Comment on above: 1 Occurrences starti ng 07/17/2024 until 07/17/2025 End: 02-15-2020 Lipid 1996 panel Lipid Panel Lab Routine Essential hypertension 1 Occurrences starting 02/14/2019 until 02/15/2020 [facility] Comment on above: 1 Occurrences starti ng 02/14/2019 until 02/15/2020 End: 02-15-2020 Prostate specific Ag [Mass/Vol] PSA Monitor Lab Routine Nocturia 1 Occurrences starting 02/14/2019 until 02/15/2020 [facility] Comment on above: 1 Occurrences starti ng 02/14/2019 until 02/15/2020 End: 08-17-2020 Prostate specific Ag [Mass/Vol] PSA Monitor Lab Routine Elevated PSA 1 Occurrences starting 08/17/2019 until 08/17/2020 [facility] Comment on above: 1 Occurrences starti ng 08/17/2019 until 08/17/2020 End: 07-03-2025 Screening colonoscopy COLONOSCOPY SCREENING Endoscopy Routine Screen for colon cancer 1 Occurrences starting 07/03/2024 until 07/03/2025 [facility] Work Phone: Comment on above: 1 Occurrences starti ng 07/03/2024 until 07/03/2025 SURGICAL PATHOLOGY [facility] Work Phone: Comment on above: Release Upon Orderin g for 1 Occurrences starting 07/14/2024, 1 completed End: 02-15-2020 TSH Qn TSH with Reflex Free T4 Lab Routine Essential hypertension 1 Occurrences starting 02/14/2019 until 02/15/2020 [facility] Comment on above: 1 Occurrences starti ng 02/14/2019 until 02/15/2020 Immunizations Immunization Date Immunization Notes Care Provider [facility] 05-22-2024 influenza, injectabl e, madin govind canine kidney, preservative free Christy Mcgee MD Work Phone: [facility] 05-22-2024 Pneumococcal Conjuga te 20-Valent (Prevnar 20) Christy Mcgee MD Work Phone: [facility] 07-06-2023 influenza, injectabl e, quadrivalent, contains preservative Christy Mcgee MD Work Phone: [facility] 07-06-2023 flu vaccine [id number] 4,6mos up, (FLUZONE QUAD/AFLURIA QUAD) injection Christy Mcgee MD Work Phone: [facility] 09-08-2022 flu vacc [id number] 6 mos up,PF, (FLUZONE QUAD) injection Christy Mcgee MD Work Phone: [facility] 09-23-2021 influenza, injectabl e, quadrivalent, contains preservative Christy Mcgee MD Work Phone: [facility] 09-23-2021 flu vaccine [id number] 2,6mos up, (FLUZONE QUAD/AFLURIA QUAD) injection Christy Mcgee MD Work Phone: [facility] 08-16-2018 influenza, injectabl e, quadrivalent, contains preservative Christy [facility] 08-16-2018 flu vaccine qv 2018, 6mos up, mdv (FLUZONE QUAD/FLULAVAL QUAD) [facility] 07-22-2017 Influenza, injectabl e, Madin Govind Canine Kidney, preservative free, quadrivalent [facility] 07-22-2017 tetanus toxoid, redu rubia diphtheria toxoid, and acellular pertussis vaccine, adsorbed [facility] 05-01-2014 influenza, seasonal, injectable Christy [facility] Payers Date Payer Category Payer Medicaid [employer] [facility] MED[employer] xxxxxxxxxxx 2016-Present xxxxxxxxxxx [id number] 2016 Medicaid [facility] MED[facility] [employer] [id number] 2016-Present [id number] 2016 Medicaid [id number] 2016 Medicaid (Managed Care) [facility] MEDICAID [id number] 2016 Medicaid [id number] 2016 Unknown [id number] 1960 Unknown [id number] 1960 Unknown [id number] 1960 Unknown [id number] 1960 Unknown [id number] 1960 Unknown [id number] 1960 Unknown [id number] Social History Date Type Detail Facility Start: 08-28-2018 End: 03-01-2023 Tobacco smoking status NHIS Former smoker [facility] End: 07-26-2014 History of tobacco use Current smoker [facility] Start: 08-16-2018 End: 09-23-2021 History SDOH Alcohol [facility] Start: 08-16-2018 End: 09-23-2021 History SDOH Alcohol Std Drinks 2 [facility] Start: 1960 Sex Assigned At Not on file [facility] Start: 02-14-2019 End: 09-23-2021 History SDOH Food Worry 1 [facility] Start: 08-18-2019 End: 07-03-2024 Alcohol intake Current drinker of alcohol (finding) [facility] Start: 03-24-2020 End: 03-01-2023 Tobacco use and exposure Never used [facility] Start: 09-13-2021 End: 09-08-2022 Exposure to SARS-CoV-2 (event) Not sure [facility] End: 07-26-2014 History of tobacco use Cigarette Smoker [facility] Start: 06-30-2020 End: 03-01-2023 Cigarettes smoked current (pack per day) - Reported 1 [facility] Start: 03-08-2020 End: 06-30-2020 Tobacco use panel [facility] National Score (1-10 0), lower number is lower risk Not on file [facility] Start: 03-01-2023 Tobacco Comment quit [facility] How often to you hav e a drink containing alcohol? 4 or more times a week [facility] How many standard dr inks containing alcohol do you have on a typical day? 3 or 4 [facility] How often do you hav e 6 or more drinks on 1 occasion? Less than monthly [facility] (I/We) worried wheth er (my/our) food would run out before (I/we) got money to buy more. Never true [facility] Start: 08-16-2018 Gender identity Identifies as male gender (finding) [facility] Start: 08-16-2018 Sexual orientation Choose not to dis close [facility] Medical Equipment Procedure Code Equipment Code Equipment Origin al Text Equipment Identifier Dates Armstrong Cv 4x.5in Thk1.65mm Ptfe - [id number] Start: 09-21-2013 Trach Tube Bivon a Sz 7.5mm Tts - [id number] Start: 10-02-2013 Clinical Notes 11-22-2013 to 07-21-2024 Odalys Murillo APRN.AGRICULTURAL CONSULTANT - 07/21/2024 2:30 PM ESTAddendum Note - Christy Mcgee MD - 07/17/2024 12:31 PM ESTAddendum Note - Christy Mcgee MD - 07/17/2024 12:31 PM EST Note Date & Type Note Facility 07-21-2024 History of Presen t illness Narrative FOLLOW UP VISIT - ENDOSCOPY Lizeth Estrella 1960 [id number] REFERRING PHYSICIAN: No referring provider defined for this encounter. Lizeth Estrella is a patient I am following for colon cancer screening-family hx. Dr. Martin performed lower endoscopy on 07/14/24. The patient was found to have Impression: - External and internal hemorrhoids. - One 2 to 3 mm polyp in the cecum, removed with a cold biopsy forceps. Resected and retrieved. - Two 2 to 6 mm polyps in the descending colon, removed with a hot snare. Resected and retrieved. - Two 2 to 10 mm polyps in the sigmoid colon, removed with a hot snare. Resected and retrieved. Pathology demonstrated: FINAL DIAGNOSIS A. Cecal polyp, biopsy: - Tubular adenoma. B. Left colon polyps, biopsies: - Multiple fragments of tubular adenoma. - Separate fragment of colonic mucosa with intramucosal lymphoid aggregate. - Additional fragment of colonic mucosa with no diagnostic abnormality. C. Sigmoid colon polyps, biopsies: - Fragments of tubular adenoma. JEL 07/18/2024 The patient notes no complaints since the procedure. VITALS: There were no vitals taken for this visit. General: patient is alert, cooperative, pleasant and in no acute distress On examination, the abdomen is benign. Assessment ASSESSMENT/PLAN: 1. History of colonic polyps - ICD9: V12.72, ICD10: Z86.0100 The operative findings and pathology report were reviewed with the patient, and the patient has had the opportunity to ask questions and have questions answered. If the patient notes any problems or changes in bowel function, the patient should contact me immediately. Otherwise I recommend follow up endoscopy in 3 years. HM updated and recall letter generated. Discussed treatment plan and patient voices understanding. Patient's questions answered appropriately. Medications and potential side effects were discussed and patient voices understanding. Return to the office as scheduled or as needed for worsening/no improvement. Odalys Murillo APRN.AGRICULTURAL CONSULTANT documented in this encounter [facility] 07-21-2024 Note HNO ID: [id number] Author: ODALYS MURILLO APRN.[facility]DEN Service: ? Author Type: Nurse Practitioner Type: Progress Notes Filed: 07/21/2024 14:35 Note Text: FOLLOW UP VISIT - ENDOSCOPY Lizeth Estrella 1960 [id number] REFERRING PHYSICIAN: No referring provider defined for this encounter. Lizeth Estrella is a patient I am following for colon cancer screening-family hx. Dr. Martin performed lower endoscopy on 07/14/24. The patient was found to have Impression: - External and internal hemorrhoids. - One 2 to 3 mm polyp in the cecum, removed with a cold biopsy forceps. Resected and retrieved. - Two 2 to 6 mm polyps in the descending colon, removed with a hot snare. Resected and retrieved. - Two 2 to 10 mm polyps in the sigmoid colon, removed with a hot snare. Resected and retrieved. Pathology demonstrated: FINAL DIAGNOSIS A. Cecal polyp, biopsy: - Tubular adenoma. B. Left colon polyps, biopsies: - Multiple fragments of tubular adenoma. - Separate fragment of colonic mucosa with intramucosal lymphoid aggregate. - Additional fragment of colonic mucosa with no diagnostic abnormality. C. Sigmoid colon polyps, biopsies: - Fragments of tubular adenoma. [facility] 07/18/2024 The patient notes no complaints since the procedure. VITALS: There were no vitals taken for this visit. General: patient is alert, cooperative, pleasant and in no acute distress On examination, the abdomen is benign. Assessment ASSESSMENT/PLAN: 1. History of colonic polyps - ICD9: V12.72, ICD10: Z86.0100 The operative findings and pathology report were reviewed with the patient, and the patient has had the opportunity to ask questions and have questions answered. If the patient notes any problems or changes in bowel function, the patient should contact me immediately. Otherwise I recommend follow up endoscopy in 3 years. HM updated and recall letter generated. Discussed treatment plan and patient voices understanding. Patient's questions answered appropriately. Medications and potential side effects were discussed and patient voices understanding. Return to the office as scheduled or as needed for worsening/no improvement. Odalys Murillo APRN.[facility] 07-17-2024 Note Addended by: CHRISTY MCGEE on: 07/17/2024 12:31 PM Modules accepted: Orders [facility] 07-17-2024 Miscellaneous Notes Addended by: CHRISTY MCGEE on: 07/17/2024 12:31 PM Modules accepted: Orders documented in this encounter [facility] 07-14-2024 Note Formatting of this n ote might be different from the original. The patient received a copy of Colonoscopy discharge instructions that contain information for how to contact the physician who performed the procedure and when to seek medical care. [facility] 07-14-2024 Miscellaneous Notes The patient received a copy of Colonoscopy discharge instructions that contain information for how to contact the physician who performed the procedure and when to seek medical care. documented in this encounter [facility] 07-14-2024 Hospital Discharg e instructions Rae Martin MD - 07/14/2024 2:15 PM EST Follow up with Alejandra Murillo NP documented in this encounter [facility] 07-14-2024 Attending History and physical note UPDATED PROCEDURAL SEDATION HISTORY AND PHYSICAL EXAMINATION SERVICE DATE: 07/14/2024 SERVICE TIME: 1:38 PHYSICAL EXAM MUST BE COMPLETED ON ADMISSION PROCEDURE: colonoscopy, possible biopsies Procedure Indications: history of colon polyps The History and Physical (completed in the past 30 days) has been reviewed and the patient has been examined. The contents accurately reflect the patient's condition with the following additions or revisions since the H&P was completed. ASA Class: ASA Class: Patient with mild systemic disease Examination indicates no changes. AIRWAY: Airway Visualization of Uvula: Yes Mouth opening greater than 2 fingerbreadths: Yes Neck Full Range of Motion: Yes LUNGS: Lungs clear to auscultation CARDIAC: Regular rhythm,Regular rate Provisional Diagnosis/Treatment Plan: colonoscopy, possible biopsies Sedation Goal: Moderate This H&P can be found in the Electronic Medical Record . SIGNATURE: Rae Martin MD PATIENT NAME: Lizeth Estrella DATE: July 14, 2024 TIME: 1:38 PM Source Note - Rae Martin MD - 07/14/2024 2:00 PM EST HISTORY AND PHYSICAL Lizeth Estrella : 1960 REFERRING PHYSICIAN: No referring provider defined for this encounter. CHIEF COMPLAINT: Patient presents with: Consult: colonoscopy HPI: Lizeth is a 64 year old male referred for endoscopy. Lizeth notes due for screening colonoscopy- family history of colon cancer in brother. Lizeth denies abdominal pain.. Lizeth denies diarrhea. Lizeth denies constipation. Lizeth denies a change in bowel habits. Lizeth denies melena. Lizeth notes bright red blood per rectum. -painless, thinks it is a result of hemorrhoids Lizeth notes hemorrhoids. iLzeth denies heartburn. Lizeth denies dysphagia. Lizeth denies a history of ulcers/ peptic ulcer disease. Lizeth had a hx of right lung cancer 14 years ago- had 2/3 of his right lung removed. Was discharged from pulmonology at 10 year ced. Denies any CP, COB, wheezing, recent illness or hospitalizations. Lizeth notes family history of colon issues. Brother with colon cancer, just 2 months ago Lizeth has undergone prior endoscopy. O' bleness in [place] in 2007 CURRENT MEDICATIONS Current Outpatient Medications Medication Sig lisinopril (ZESTRIL, PRINIVIL) 10 mg tablet Take 10 mg by mouth once daily. atorvastatin (LIPITOR) 20 mg tablet Take 20 mg by mouth once daily. peg 3350-Electrolytes (GOLYTELY) 236-22.74-6.74 -5.86 gram suspension Take 4,000 mL by mouth one time only for 1 dose. Refer to printed prep instructions from your provider. No current facility-administered medications for this visit. ALLERGIES: Patient has no known allergies. PAST MEDICAL HISTORY PAST MEDICAL HISTORY Diagnosis Date Benign neoplasm of colon Elevated cholesterol History of colonic polyps 03/21/2008 HTN (hypertension) Internal hemorrhoids without mention of complication Personal history of colonic polyps Primary lung adenocarcinoma (HCC) 09/21/2013 Pulmonary embolism (HCC) PAST SURGICAL HISTORY PAST SURGICAL HISTORY Procedure Laterality Date COLONOSCOPY FLX DX W/COLLJ SPEC WHEN PFRMD 01/31/03 Colonoscopy COLONOSCOPY FLX DX W/COLLJ SPEC WHEN PFRMD 03/21/08 PAST SURGICAL HISTORY OF 09/21/2013 Right Pancoast tumor resection including upper lobectomy with en bloc resection of ribs 1, 2, and 3 and posterior elements of first and second vertebrae and right VATS exploration TRACHEOSTOMY (SPECIFY) 10/02/2013 Open tracheostomy. Decannulated 10/12/13 FAMILY HISTORY FAMILY HISTORY Problem Relation Age of Onset Cancer Mother 2002 melanoma skin cancer Hypertension Mother Cancer Father small cell lung cancer Diabetes Brother Diabetes Brother from CHF age 36 SOCIAL HISTORY Social History Tobacco Use Smoking status: Former Current packs/day: 1.00 Average packs/day: 1 pack/day for 25.0 years (25.0 ttl pk-yrs) Types: Cigarettes Smokeless tobacco: Never Tobacco comments: quit Vaping Use Vaping status: Never Used Substance Use Topics Alcohol use: Yes Alcohol/week: 12.0 standard drinks of alcohol Types: 12 Cans of Beer (12oz) per week Drug use: No REVIEW OF SYMPTOMS: The review of systems data was entered by the nurse and reviewed by or Nursing Notes: Dianne Cuello RN 07/03/2024 2:30 PM Signed REVIEW OF SYSTEMS: General: The patient denies fatigue, denies weight loss, denies weight gain, denies feeling hot, and denies feelings of cold. Eyes: The patient denies glaucoma, denies eye injury/surgery, wears glasses or contacts. Ear/Nose/Throat: The patient denies allergies, denies hayfever, denies ear infections, and denies bloody noses. Cardiovascular: The patient denies chest pain, denies heart disease, denies high blood pressure,denies cardiac stent, denies prior heart attack, denies irregular heart beat, denies high cholesterol, denies poor circulation, denies heart failure, other cardiac issues, denies claudication, denies cold feet, denies peripheral arterial stent. Respiratory: The patient denies tuberculosis, denies pneumonia, denies frequent cough, denies pulmonary embolism, denies shortness of breath, and denies coughing up blood. Gastrointestinal: The patient denies difficulty swallowing, denies acid reflux, denies ulcers, denies vomiting, denies jaundice/hepatitis, denies gallbladder problems, denies black or tarry stools, NOTES hemorrhoids, denies bleeding from rectum, denies diverticulitis, denies constipation, denies diarrhea, denies loss of stool control, and denies hernias. Kidney/Bladder: The patient denies kidney stones, denies urine infections, and denies bloody urine. Skin: The patient denies a history of skin cancer, denies bleeding/changing moles, and denies a history of skin rash. Neurologic: The patient denies a history of epilepsy/convulsions, denies headaches, denies head/spinal injuries, and denies stroke/TIA. Psychiatric: The patient denies psychiatric medications, denies depression, and denies voices, denies substance abuse. Endocrine: The patient denies thyroid disorders, denies diabetes, and denies hormonal problems. Hematologic: The patient denies a history of bruising, NOTES bleeding, and denies anemia, denies blood clots. Infections: The patient denies a history of measles and mumps, denies rheumatic fever, and denies sexually transmitted diseases. Musculoskeletal: The patient denies back pain/injury, denies back problems, denies sciatica, denies knee/foot trouble, denies arthritis, or denies gout. When was patient's last Mammogram screening? N/A Last Colonoscopy: 03/21/2008 Dianne Cuello RN PHYSICAL EXAMINATION: General: The patient is 64 year old, male well nourished, well hydrated in no acute distress. The patient is oriented to time, place, and person. VITALS: Blood pressure 140/80, pulse 60, temperature 36.7 C (98.1 F), height 177.8 cm (5' 10), weight 74.2 kg (163 lb 9.6 oz), SpO2 96%. Body mass index is 23.47 kg/m . HEENT: Normal cephalic, ataumatic, pupils are equally round, sclera are anicteric, mucous membranes are moist, oropharynx is clear. Neck has no masses, asymmetry or lymphadenopathy. Respiratory: Clear to auscultation and percussion. Normal respiratory excursion and pattern. Cardiac: Examination is regular rate and rhythm. Normal S1/S2 Abdominal exam: Soft, nontender, with no palpable masses. No hepatosplenomegaly. No palpable hernias. Extremities: no clubbing, cyanosis or edema. No adenopathy. LABORATORY VALUES: As Noted RADIOLOGIC STUDIES: As Noted Assessment IMPRESSION: screen for colon cancer, family history of colon cancer, hemorrhoids PLAN: I have reviewed my findings with the surgeon. Will plan for lower endoscopy. We discussed the risks and benefits of the planned endoscopy. I have informed the patient that complications can occur including failure to complete the endoscopy and perforation. Lizeth had the opportunity to ask questions concerning the planned endoscopy. My staff has also explained the procedure to the patient in understandable terms and has given the patient printed material concerning the procedure. Lizeth freely consents to surgery. I plan to use Golytely bowel preparation I have explained to the patient the difference between IV conscious sedation and MAC anesthesia - and I have offered either, according to the patient's wishes. I have explained that with IV conscious sedation there is no anesthesia provider available and therefore there is a limitation of the amount of IV medications that can be given and that the patient may wake up in the middle of the procedure and/or experience pain/discomfort during the procedure. Further discussion was done and the patient was given the opportunity to ask questions and all questions were answered. Lizeth chooses IV conscious sedation. Lizeth was counseled that if there are changes in his/her medical condition, to let the office know if surgery should proceed. If there are changes in patient's medical condition from time of this encounter to the day of the procedure that preclude anesthesia, patient may have procedure cancelled for patient's safety. Diagnoses: (Z12.11) Screen for colon cancer (primary encounter diagnosis) (Z80.0) Family history of colon cancer Portions of this documentation were copied and pasted from previous office visit notes in order to provide a cohesive continuity of the history. The note has been reviewed and edited and updated as necessary. Odalys Murillo APRN.AGRICULTURAL CONSULTANT [facility] Work Phone: 07-14-2024 History and physical note HISTORY AND PHYSICAL Lizeth Estrella : 1960 REFERRING PHYSICIAN: No referring provider defined for this encounter. CHIEF COMPLAINT: Patient presents with: Consult: colonoscopy HPI: Lizeth is a 64 year old male referred for endoscopy. Lizeth notes due for screening colonoscopy- family history of colon cancer in brother. Lizeth denies abdominal pain.. Lizeth denies diarrhea. Lizeth denies constipation. Lizeth denies a change in bowel habits. Lizeth denies melena. Lizeth notes bright red blood per rectum. -painless, thinks it is a result of hemorrhoids Lizeth notes hemorrhoids. Lizeth denies heartburn. Lizeth denies dysphagia. Lizeth denies a history of ulcers/ peptic ulcer disease. Lizeth had a hx of right lung cancer 14 years ago- had 2/3 of his right lung removed. Was discharged from pulmonology at 10 year ced. Denies any CP, COB, wheezing, recent illness or hospitalizations. Lizeth notes family history of colon issues. Brother with colon cancer, just 2 months ago Lizeth has undergone prior endoscopy. O' bleness in [place] in 2007 CURRENT MEDICATIONS Current Outpatient Medications Medication Sig lisinopril (ZESTRIL, PRINIVIL) 10 mg tablet Take 10 mg by mouth once daily. atorvastatin (LIPITOR) 20 mg tablet Take 20 mg by mouth once daily. peg 3350-Electrolytes (GOLYTELY) 236-22.74-6.74 -5.86 gram suspension Take 4,000 mL by mouth one time only for 1 dose. Refer to printed prep instructions from your provider. No current facility-administered medications for this visit. ALLERGIES: Patient has no known allergies. PAST MEDICAL HISTORY PAST MEDICAL HISTORY Diagnosis Date Benign neoplasm of colon Elevated cholesterol History of colonic polyps 03/21/2008 HTN (hypertension) Internal hemorrhoids without mention of complication Personal history of colonic polyps Primary lung adenocarcinoma (HCC) 09/21/2013 Pulmonary embolism (HCC) PAST SURGICAL HISTORY PAST SURGICAL HISTORY Procedure Laterality Date COLONOSCOPY FLX DX W/COLLJ SPEC WHEN PFRMD 01/31/03 Colonoscopy COLONOSCOPY FLX DX W/COLLJ SPEC WHEN PFRMD 03/21/08 PAST SURGICAL HISTORY OF 09/21/2013 Right Pancoast tumor resection including upper lobectomy with en bloc resection of ribs 1, 2, and 3 and posterior elements of first and second vertebrae and right VATS exploration TRACHEOSTOMY (SPECIFY) 10/02/2013 Open tracheostomy. Decannulated 10/12/13 FAMILY HISTORY FAMILY HISTORY Problem Relation Age of Onset Cancer Mother 2002 melanoma skin cancer Hypertension Mother Cancer Father small cell lung cancer Diabetes Brother Diabetes Brother from CHF age 36 SOCIAL HISTORY Social History Tobacco Use Smoking status: Former Current packs/day: 1.00 Average packs/day: 1 pack/day for 25.0 years (25.0 ttl pk-yrs) Types: Cigarettes Smokeless tobacco: Never Tobacco comments: quit Vaping Use Vaping status: Never Used Substance Use Topics Alcohol use: Yes Alcohol/week: 12.0 standard drinks of alcohol Types: 12 Cans of Beer (12oz) per week Drug use: No REVIEW OF SYMPTOMS: The review of systems data was entered by the nurse and reviewed by or Nursing Notes: Dianne Cuello RN 07/03/2024 2:30 PM Signed REVIEW OF SYSTEMS: General: The patient denies fatigue, denies weight loss, denies weight gain, denies feeling hot, and denies feelings of cold. Eyes: The patient denies glaucoma, denies eye injury/surgery, wears glasses or contacts. Ear/Nose/Throat: The patient denies allergies, denies hayfever, denies ear infections, and denies bloody noses. Cardiovascular: The patient denies chest pain, denies heart disease, denies high blood pressure,denies cardiac stent, denies prior heart attack, denies irregular heart beat, denies high cholesterol, denies poor circulation, denies heart failure, other cardiac issues, denies claudication, denies cold feet, denies peripheral arterial stent. Respiratory: The patient denies tuberculosis, denies pneumonia, denies frequent cough, denies pulmonary embolism, denies shortness of breath, and denies coughing up blood. Gastrointestinal: The patient denies difficulty swallowing, denies acid reflux, denies ulcers, denies vomiting, denies jaundice/hepatitis, denies gallbladder problems, denies black or tarry stools, NOTES hemorrhoids, denies bleeding from rectum, denies diverticulitis, denies constipation, denies diarrhea, denies loss of stool control, and denies hernias. Kidney/Bladder: The patient denies kidney stones, denies urine infections, and denies bloody urine. Skin: The patient denies a history of skin cancer, denies bleeding/changing moles, and denies a history of skin rash. Neurologic: The patient denies a history of epilepsy/convulsions, denies headaches, denies head/spinal injuries, and denies stroke/TIA. Psychiatric: The patient denies psychiatric medications, denies depression, and denies voices, denies substance abuse. Endocrine: The patient denies thyroid disorders, denies diabetes, and denies hormonal problems. Hematologic: The patient denies a history of bruising, NOTES bleeding, and denies anemia, denies blood clots. Infections: The patient denies a history of measles and mumps, denies rheumatic fever, and denies sexually transmitted diseases. Musculoskeletal: The patient denies back pain/injury, denies back problems, denies sciatica, denies knee/foot trouble, denies arthritis, or denies gout. When was patient's last Mammogram screening? N/A Last Colonoscopy: 03/21/2008 Dianne Cuello RN PHYSICAL EXAMINATION: General: The patient is 64 year old, male well nourished, well hydrated in no acute distress. The patient is oriented to time, place, and person. VITALS: Blood pressure 140/80, pulse 60, temperature 36.7 C (98.1 F), height 177.8 cm (5' 10), weight 74.2 kg (163 lb 9.6 oz), SpO2 96%. Body mass index is 23.47 kg/m . HEENT: Normal cephalic, ataumatic, pupils are equally round, sclera are anicteric, mucous membranes are moist, oropharynx is clear. Neck has no masses, asymmetry or lymphadenopathy. Respiratory: Clear to auscultation and percussion. Normal respiratory excursion and pattern. Cardiac: Examination is regular rate and rhythm. Normal S1/S2 Abdominal exam: Soft, nontender, with no palpable masses. No hepatosplenomegaly. No palpable hernias. Extremities: no clubbing, cyanosis or edema. No adenopathy. LABORATORY VALUES: As Noted RADIOLOGIC STUDIES: As Noted Assessment IMPRESSION: screen for colon cancer, family history of colon cancer, hemorrhoids PLAN: I have reviewed my findings with the surgeon. Will plan for lower endoscopy. We discussed the risks and benefits of the planned endoscopy. I have informed the patient that complications can occur including failure to complete the endoscopy and perforation. Lizeth had the opportunity to ask questions concerning the planned endoscopy. My staff has also explained the procedure to the patient in understandable terms and has given the patient printed material concerning the procedure. Lizeth freely consents to surgery. I plan to use Golytely bowel preparation I have explained to the patient the difference between IV conscious sedation and MAC anesthesia - and I have offered either, according to the patient's wishes. I have explained that with IV conscious sedation there is no anesthesia provider available and therefore there is a limitation of the amount of IV medications that can be given and that the patient may wake up in the middle of the procedure and/or experience pain/discomfort during the procedure. Further discussion was done and the patient was given the opportunity to ask questions and all questions were answered. Lizeth chooses IV conscious sedation. Lizeth was counseled that if there are changes in his/her medical condition, to let the office know if surgery should proceed. If there are changes in patient's medical condition from time of this encounter to the day of the procedure that preclude anesthesia, patient may have procedure cancelled for patient's safety. Diagnoses: (Z12.11) Screen for colon cancer (primary encounter diagnosis) (Z80.0) Family history of colon cancer Portions of this documentation were copied and pasted from previous office visit notes in order to provide a cohesive continuity of the history. The note has been reviewed and edited and updated as necessary. Odalys Murillo APRN.AGRICULTURAL CONSULTANT [facility] 07-14-2024 History and physical note UPDATED PROCEDURAL SEDATION HISTORY AND PHYSICAL EXAMINATION SERVICE DATE: 07/14/2024 SERVICE TIME: 1:38 PHYSICAL EXAM MUST BE COMPLETED ON ADMISSION PROCEDURE: colonoscopy, possible biopsies Procedure Indications: history of colon polyps The History and Physical (completed in the past 30 days) has been reviewed and the patient has been examined. The contents accurately reflect the patient's condition with the following additions or revisions since the H&P was completed. ASA Class: ASA Class: Patient with mild systemic disease Examination indicates no changes. AIRWAY: Airway Visualization of Uvula: Yes Mouth opening greater than 2 fingerbreadths: Yes Neck Full Range of Motion: Yes LUNGS: Lungs clear to auscultation CARDIAC: Regular rhythm,Regular rate Provisional Diagnosis/Treatment Plan: colonoscopy, possible biopsies Sedation Goal: Moderate This H&P can be found in the Electronic Medical Record . SIGNATURE: Rae Martin MD PATIENT NAME: Lizeth Estrella DATE: July 14, 2024 TIME: 1:38 PM Source Note - Rae Martin MD - 07/14/2024 2:00 PM EST HISTORY AND PHYSICAL Lizeth Estrella : 1960 REFERRING PHYSICIAN: No referring provider defined for this encounter. CHIEF COMPLAINT: Patient presents with: Consult: colonoscopy HPI: Lizeth is a 64 year old male referred for endoscopy. Lizeth notes due for screening colonoscopy- family history of colon cancer in brother. Lizeth denies abdominal pain.. Lizeth denies diarrhea. Lizeth denies constipation. Lizeth denies a change in bowel habits. Lizeth denies melena. Lizeth notes bright red blood per rectum. -painless, thinks it is a result of hemorrhoids Lizeth notes hemorrhoids. Lizeth denies heartburn. Lizeth denies dysphagia. Lizeth denies a history of ulcers/ peptic ulcer disease. Lizeth had a hx of right lung cancer 14 years ago- had 2/3 of his right lung removed. Was discharged from pulmonology at 10 year ced. Denies any CP, COB, wheezing, recent illness or hospitalizations. Lizeth notes family history of colon issues. Brother with colon cancer, just 2 months ago Lizeth has undergone prior endoscopy. O' bleness in [place] in 2007 CURRENT MEDICATIONS Current Outpatient Medications Medication Sig lisinopril (ZESTRIL, PRINIVIL) 10 mg tablet Take 10 mg by mouth once daily. atorvastatin (LIPITOR) 20 mg tablet Take 20 mg by mouth once daily. peg 3350-Electrolytes (GOLYTELY) 236-22.74-6.74 -5.86 gram suspension Take 4,000 mL by mouth one time only for 1 dose. Refer to printed prep instructions from your provider. No current facility-administered medications for this visit. ALLERGIES: Patient has no known allergies. PAST MEDICAL HISTORY PAST MEDICAL HISTORY Diagnosis Date Benign neoplasm of colon Elevated cholesterol History of colonic polyps 03/21/2008 HTN (hypertension) Internal hemorrhoids without mention of complication Personal history of colonic polyps Primary lung adenocarcinoma (HCC) 09/21/2013 Pulmonary embolism (HCC) PAST SURGICAL HISTORY PAST SURGICAL HISTORY Procedure Laterality Date COLONOSCOPY FLX DX W/COLLJ SPEC WHEN PFRMD 01/31/03 Colonoscopy COLONOSCOPY FLX DX W/COLLJ SPEC WHEN PFRMD 03/21/08 PAST SURGICAL HISTORY OF 09/21/2013 Right Pancoast tumor resection including upper lobectomy with en bloc resection of ribs 1, 2, and 3 and posterior elements of first and second vertebrae and right VATS exploration TRACHEOSTOMY (SPECIFY) 10/02/2013 Open tracheostomy. Decannulated 10/12/13 FAMILY HISTORY FAMILY HISTORY Problem Relation Age of Onset Cancer Mother 2001 melanoma skin cancer Hypertension Mother Cancer Father small cell lung cancer Diabetes Brother Diabetes Brother from CHF age 36 SOCIAL HISTORY Social History Tobacco Use Smoking status: Former Current packs/day: 1.00 Average packs/day: 1 pack/day for 25.0 years (25.0 ttl pk-yrs) Types: Cigarettes Smokeless tobacco: Never Tobacco comments: quit Vaping Use Vaping status: Never Used Substance Use Topics Alcohol use: Yes Alcohol/week: 12.0 standard drinks of alcohol Types: 12 Cans of Beer (12oz) per week Drug use: No REVIEW OF SYMPTOMS: The review of systems data was entered by the nurse and reviewed by or Nursing Notes: Dianne Cuello RN 07/03/2024 2:30 PM Signed REVIEW OF SYSTEMS: General: The patient denies fatigue, denies weight loss, denies weight gain, denies feeling hot, and denies feelings of cold. Eyes: The patient denies glaucoma, denies eye injury/surgery, wears glasses or contacts. Ear/Nose/Throat: The patient denies allergies, denies hayfever, denies ear infections, and denies bloody noses. Cardiovascular: The patient denies chest pain, denies heart disease, denies high blood pressure,denies cardiac stent, denies prior heart attack, denies irregular heart beat, denies high cholesterol, denies poor circulation, denies heart failure, other cardiac issues, denies claudication, denies cold feet, denies peripheral arterial stent. Respiratory: The patient denies tuberculosis, denies pneumonia, denies frequent cough, denies pulmonary embolism, denies shortness of breath, and denies coughing up blood. Gastrointestinal: The patient denies difficulty swallowing, denies acid reflux, denies ulcers, denies vomiting, denies jaundice/hepatitis, denies gallbladder problems, denies black or tarry stools, NOTES hemorrhoids, denies bleeding from rectum, denies diverticulitis, denies constipation, denies diarrhea, denies loss of stool control, and denies hernias. Kidney/Bladder: The patient denies kidney stones, denies urine infections, and denies bloody urine. Skin: The patient denies a history of skin cancer, denies bleeding/changing moles, and denies a history of skin rash. Neurologic: The patient denies a history of epilepsy/convulsions, denies headaches, denies head/spinal injuries, and denies stroke/TIA. Psychiatric: The patient denies psychiatric medications, denies depression, and denies voices, denies substance abuse. Endocrine: The patient denies thyroid disorders, denies diabetes, and denies hormonal problems. Hematologic: The patient denies a history of bruising, NOTES bleeding, and denies anemia, denies blood clots. Infections: The patient denies a history of measles and mumps, denies rheumatic fever, and denies sexually transmitted diseases. Musculoskeletal: The patient denies back pain/injury, denies back problems, denies sciatica, denies knee/foot trouble, denies arthritis, or denies gout. When was patient's last Mammogram screening? N/A Last Colonoscopy: 03/21/2008 Dianne Cuello RN PHYSICAL EXAMINATION: General: The patient is 64 year old, male well nourished, well hydrated in no acute distress. The patient is oriented to time, place, and person. VITALS: Blood pressure 140/80, pulse 60, temperature 36.7 C (98.1 F), height 177.8 cm (5' 10), weight 74.2 kg (163 lb 9.6 oz), SpO2 96%. Body mass index is 23.47 kg/m . HEENT: Normal cephalic, ataumatic, pupils are equally round, sclera are anicteric, mucous membranes are moist, oropharynx is clear. Neck has no masses, asymmetry or lymphadenopathy. Respiratory: Clear to auscultation and percussion. Normal respiratory excursion and pattern. Cardiac: Examination is regular rate and rhythm. Normal S1/S2 Abdominal exam: Soft, nontender, with no palpable masses. No hepatosplenomegaly. No palpable hernias. Extremities: no clubbing, cyanosis or edema. No adenopathy. LABORATORY VALUES: As Noted RADIOLOGIC STUDIES: As Noted Assessment IMPRESSION: screen for colon cancer, family history of colon cancer, hemorrhoids PLAN: I have reviewed my findings with the surgeon. Will plan for lower endoscopy. We discussed the risks and benefits of the planned endoscopy. I have informed the patient that complications can occur including failure to complete the endoscopy and perforation. Lizeth had the opportunity to ask questions concerning the planned endoscopy. My staff has also explained the procedure to the patient in understandable terms and has given the patient printed material concerning the procedure. Lizeth freely consents to surgery. I plan to use Golytely bowel preparation I have explained to the patient the difference between IV conscious sedation and MAC anesthesia - and I have offered either, according to the patient's wishes. I have explained that with IV conscious sedation there is no anesthesia provider available and therefore there is a limitation of the amount of IV medications that can be given and that the patient may wake up in the middle of the procedure and/or experience pain/discomfort during the procedure. Further discussion was done and the patient was given the opportunity to ask questions and all questions were answered. Lizeth chooses IV conscious sedation. Lizeth was counseled that if there are changes in his/her medical condition, to let the office know if surgery should proceed. If there are changes in patient's medical condition from time of this encounter to the day of the procedure that preclude anesthesia, patient may have procedure cancelled for patient's safety. Diagnoses: (Z12.11) Screen for colon cancer (primary encounter diagnosis) (Z80.0) Family history of colon cancer Portions of this documentation were copied and pasted from previous office visit notes in order to provide a cohesive continuity of the history. The note has been reviewed and edited and updated as necessary. Odalys Murillo APRN.AGRICULTURAL CONSULTANT HISTORY AND PHYSICAL Lizeth Estrella : 1960 REFERRING PHYSICIAN: No referring provider defined for this encounter. CHIEF COMPLAINT: Patient presents with: Consult: colonoscopy HPI: Lizeth is a 64 year old male referred for endoscopy. Lizeth notes due for screening colonoscopy- family history of colon cancer in brother. Lizeth denies abdominal pain.. Lizeth denies diarrhea. Lizeth denies constipation. Lizeth denies a change in bowel habits. Lizeth denies melena. Lizeth notes bright red blood per rectum. -painless, thinks it is a result of hemorrhoids Lizeth notes hemorrhoids. Lizeth denies heartburn. Lizeth denies dysphagia. Lizeth denies a history of ulcers/ peptic ulcer disease. Lizeth had a hx of right lung cancer 14 years ago- had 2/3 of his right lung removed. Was discharged from pulmonology at 10 year ced. Denies any CP, COB, wheezing, recent illness or hospitalizations. Lizeth notes family history of colon issues. Brother with colon cancer, just 2 months ago Lizeth has undergone prior endoscopy. [place]' bleness in [place] in 2007 CURRENT MEDICATIONS Current Outpatient Medications Medication Sig lisinopril (ZESTRIL, PRINIVIL) 10 mg tablet Take 10 mg by mouth once daily. atorvastatin (LIPITOR) 20 mg tablet Take 20 mg by mouth once daily. peg 3350-Electrolytes (GOLYTELY) 236-22.74-6.74 -5.86 gram suspension Take 4,000 mL by mouth one time only for 1 dose. Refer to printed prep instructions from your provider. No current facility-administered medications for this visit. ALLERGIES: Patient has no known allergies. PAST MEDICAL HISTORY PAST MEDICAL HISTORY Diagnosis Date Benign neoplasm of colon Elevated cholesterol History of colonic polyps 03/21/2008 HTN (hypertension) Internal hemorrhoids without mention of complication Personal history of colonic polyps Primary lung adenocarcinoma (HCC) 09/21/2013 Pulmonary embolism (HCC) PAST SURGICAL HISTORY PAST SURGICAL HISTORY Procedure Laterality Date COLONOSCOPY FLX DX W/COLLJ SPEC WHEN PFRMD 01/31/03 Colonoscopy COLONOSCOPY FLX DX W/COLLJ SPEC WHEN PFRMD 03/21/08 PAST SURGICAL HISTORY OF 09/21/2013 Right Pancoast tumor resection including upper lobectomy with en bloc resection of ribs 1, 2, and 3 and posterior elements of first and second vertebrae and right VATS exploration TRACHEOSTOMY (SPECIFY) 10/02/2013 Open tracheostomy. Decannulated 10/12/13 FAMILY HISTORY FAMILY HISTORY Problem Relation Age of Onset Cancer Mother 2002 melanoma skin cancer Hypertension Mother Cancer Father small cell lung cancer Diabetes Brother Diabetes Brother from CHF age 36 SOCIAL HISTORY Social History Tobacco Use Smoking status: Former Current packs/day: 1.00 Average packs/day: 1 pack/day for 25.0 years (25.0 ttl pk-yrs) Types: Cigarettes Smokeless tobacco: Never Tobacco comments: quit Vaping Use Vaping status: Never Used Substance Use Topics Alcohol use: Yes Alcohol/week: 12.0 standard drinks of alcohol Types: 12 Cans of Beer (12oz) per week Drug use: No REVIEW OF SYMPTOMS: The review of systems data was entered by the nurse and reviewed by or Nursing Notes: Dianne Cuello RN 07/03/2024 2:30 PM Signed REVIEW OF SYSTEMS: General: The patient denies fatigue, denies weight loss, denies weight gain, denies feeling hot, and denies feelings of cold. Eyes: The patient denies glaucoma, denies eye injury/surgery, wears glasses or contacts. Ear/Nose/Throat: The patient denies allergies, denies hayfever, denies ear infections, and denies bloody noses. Cardiovascular: The patient denies chest pain, denies heart disease, denies high blood pressure,denies cardiac stent, denies prior heart attack, denies irregular heart beat, denies high cholesterol, denies poor circulation, denies heart failure, other cardiac issues, denies claudication, denies cold feet, denies peripheral arterial stent. Respiratory: The patient denies tuberculosis, denies pneumonia, denies frequent cough, denies pulmonary embolism, denies shortness of breath, and denies coughing up blood. Gastrointestinal: The patient denies difficulty swallowing, denies acid reflux, denies ulcers, denies vomiting, denies jaundice/hepatitis, denies gallbladder problems, denies black or tarry stools, NOTES hemorrhoids, denies bleeding from rectum, denies diverticulitis, denies constipation, denies diarrhea, denies loss of stool control, and denies hernias. Kidney/Bladder: The patient denies kidney stones, denies urine infections, and denies bloody urine. Skin: The patient denies a history of skin cancer, denies bleeding/changing moles, and denies a history of skin rash. Neurologic: The patient denies a history of epilepsy/convulsions, denies headaches, denies head/spinal injuries, and denies stroke/TIA. Psychiatric: The patient denies psychiatric medications, denies depression, and denies voices, denies substance abuse. Endocrine: The patient denies thyroid disorders, denies diabetes, and denies hormonal problems. Hematologic: The patient denies a history of bruising, NOTES bleeding, and denies anemia, denies blood clots. Infections: The patient denies a history of measles and mumps, denies rheumatic fever, and denies sexually transmitted diseases. Musculoskeletal: The patient denies back pain/injury, denies back problems, denies sciatica, denies knee/foot trouble, denies arthritis, or denies gout. When was patient's last Mammogram screening? N/A Last Colonoscopy: 03/21/2008 Dianne Cuello RN PHYSICAL EXAMINATION: General: The patient is 64 year old, male well nourished, well hydrated in no acute distress. The patient is oriented to time, place, and person. VITALS: Blood pressure 140/80, pulse 60, temperature 36.7 C (98.1 F), height 177.8 cm (5' 10), weight 74.2 kg (163 lb 9.6 oz), SpO2 96%. Body mass index is 23.47 kg/m . HEENT: Normal cephalic, ataumatic, pupils are equally round, sclera are anicteric, mucous membranes are moist, oropharynx is clear. Neck has no masses, asymmetry or lymphadenopathy. Respiratory: Clear to auscultation and percussion. Normal respiratory excursion and pattern. Cardiac: Examination is regular rate and rhythm. Normal S1/S2 Abdominal exam: Soft, nontender, with no palpable masses. No hepatosplenomegaly. No palpable hernias. Extremities: no clubbing, cyanosis or edema. No adenopathy. LABORATORY VALUES: As Noted RADIOLOGIC STUDIES: As Noted Assessment IMPRESSION: screen for colon cancer, family history of colon cancer, hemorrhoids PLAN: I have reviewed my findings with the surgeon. Will plan for lower endoscopy. We discussed the risks and benefits of the planned endoscopy. I have informed the patient that complications can occur including failure to complete the endoscopy and perforation. Lizeth had the opportunity to ask questions concerning the planned endoscopy. My staff has also explained the procedure to the patient in understandable terms and has given the patient printed material concerning the procedure. Lizeth freely consents to surgery. I plan to use Golytely bowel preparation I have explained to the patient the difference between IV conscious sedation and MAC anesthesia - and I have offered either, according to the patient's wishes. I have explained that with IV conscious sedation there is no anesthesia provider available and therefore there is a limitation of the amount of IV medications that can be given and that the patient may wake up in the middle of the procedure and/or experience pain/discomfort during the procedure. Further discussion was done and the patient was given the opportunity to ask questions and all questions were answered. Lizeth chooses IV conscious sedation. Lizeth was counseled that if there are changes in his/her medical condition, to let the office know if surgery should proceed. If there are changes in patient's medical condition from time of this encounter to the day of the procedure that preclude anesthesia, patient may have procedure cancelled for patient's safety. Diagnoses: (Z12.11) Screen for colon cancer (primary encounter diagnosis) (Z80.0) Family history of colon cancer Portions of this documentation were copied and pasted from previous office visit notes in order to provide a cohesive continuity of the history. The note has been reviewed and edited and updated as necessary. Odalys Murillo APRN.AGRICULTURAL CONSULTANT documented in this encounter [facility] 07-03-2024 Telephone encounter Note 07-14-2024 [facility], provider went over all prep information and was given direct number to call with questions Anibal Dooley [facility] 07-03-2024 Miscellaneous Notes 07-14-2024 [facility], provider went over all prep information and was given direct number to call with questions Anibal Dooley documented in this encounter [facility] 07-03-2024 Nurse Note REVIEW OF SYSTEMS: General: The patient denies fatigue, denies weight loss, denies weight gain, denies feeling hot, and denies feelings of cold. Eyes: The patient denies glaucoma, denies eye injury/surgery, wears glasses or contacts. Ear/Nose/Throat: The patient denies allergies, denies hayfever, denies ear infections, and denies bloody noses. Cardiovascular: The patient denies chest pain, denies heart disease, denies high blood pressure,denies cardiac stent, denies prior heart attack, denies irregular heart beat, denies high cholesterol, denies poor circulation, denies heart failure, other cardiac issues, denies claudication, denies cold feet, denies peripheral arterial stent. Respiratory: The patient denies tuberculosis, denies pneumonia, denies frequent cough, denies pulmonary embolism, denies shortness of breath, and denies coughing up blood. Gastrointestinal: The patient denies difficulty swallowing, denies acid reflux, denies ulcers, denies vomiting, denies jaundice/hepatitis, denies gallbladder problems, denies black or tarry stools, NOTES hemorrhoids, denies bleeding from rectum, denies diverticulitis, denies constipation, denies diarrhea, denies loss of stool control, and denies hernias. Kidney/Bladder: The patient denies kidney stones, denies urine infections, and denies bloody urine. Skin: The patient denies a history of skin cancer, denies bleeding/changing moles, and denies a history of skin rash. Neurologic: The patient denies a history of epilepsy/convulsions, denies headaches, denies head/spinal injuries, and denies stroke/TIA. Psychiatric: The patient denies psychiatric medications, denies depression, and denies voices, denies substance abuse. Endocrine: The patient denies thyroid disorders, denies diabetes, and denies hormonal problems. Hematologic: The patient denies a history of bruising, NOTES bleeding, and denies anemia, denies blood clots. Infections: The patient denies a history of measles and mumps, denies rheumatic fever, and denies sexually transmitted diseases. Musculoskeletal: The patient denies back pain/injury, denies back problems, denies sciatica, denies knee/foot trouble, denies arthritis, or denies gout. When was patient's last Mammogram screening? N/A Last Colonoscopy: 03/21/2008 Dianne Cuello RN [facility] 07-03-2024 History of Presen t illness Narrative HISTORY AND PHYSICAL Lizeth Estrella : 1960 REFERRING PHYSICIAN: No referring provider defined for this encounter. CHIEF COMPLAINT: Patient presents with: Consult: colonoscopy HPI: Lizeth is a 64 year old male referred for endoscopy. Lizeth notes due for screening colonoscopy- family history of colon cancer in brother. Lizeth denies abdominal pain.. Lizeth denies diarrhea. Lizeth denies constipation. Lizeth denies a change in bowel habits. Lizeth denies melena. Lizeth notes bright red blood per rectum. -painless, thinks it is a result of hemorrhoids Lizeth notes hemorrhoids. Lizeth denies heartburn. Lizeth denies dysphagia. Lizeth denies a history of ulcers/ peptic ulcer disease. Lizeth had a hx of right lung cancer 14 years ago- had 2/3 of his right lung removed. Was discharged from pulmonology at 10 year ced. Denies any CP, COB, wheezing, recent illness or hospitalizations. Lizeth notes family history of colon issues. Brother with colon cancer, just 2 months ago Lizeth has undergone prior endoscopy. [facility] in [place] in 2007 Current Outpatient Medications Medication Sig lisinopril (ZESTRIL, PRINIVIL) 10 mg tablet Take 10 mg by mouth once daily. atorvastatin (LIPITOR) 20 mg tablet Take 20 mg by mouth once daily. peg 3350-Electrolytes (GOLYTELY) 236-22.74-6.74 -5.86 gram suspension Take 4,000 mL by mouth one time only for 1 dose. Refer to printed prep instructions from your provider. No current facility-administered medications for this visit. ALLERGIES: Patient has no known allergies. PAST MEDICAL HISTORY Diagnosis Date Benign neoplasm of colon Elevated cholesterol History of colonic polyps 03/21/2008 HTN (hypertension) Internal hemorrhoids without mention of complication Personal history of colonic polyps Primary lung adenocarcinoma (HCC) 09/21/2013 Pulmonary embolism (HCC) PAST SURGICAL HISTORY Procedure Laterality Date COLONOSCOPY FLX DX W/COLLJ SPEC WHEN PFRMD 01/31/03 Colonoscopy COLONOSCOPY FLX DX W/COLLJ SPEC WHEN PFRMD 03/21/08 PAST SURGICAL HISTORY OF 09/21/2013 Right Pancoast tumor resection including upper lobectomy with en bloc resection of ribs 1, 2, and 3 and posterior elements of first and second vertebrae and right VATS exploration TRACHEOSTOMY (SPECIFY) 10/02/2013 Open tracheostomy. Decannulated 10/12/13 FAMILY HISTORY Problem Relation Age of Onset Cancer Mother 2001 melanoma skin cancer Hypertension Mother Cancer Father small cell lung cancer Diabetes Brother Diabetes Brother from CHF age 36 Social History Tobacco Use Smoking status: Former Current packs/day: 1.00 Average packs/day: 1 pack/day for 25.0 years (25.0 ttl pk-yrs) Types: Cigarettes Smokeless tobacco: Never Tobacco comments: quit Vaping Use Vaping status: Never Used Substance Use Topics Alcohol use: Yes Alcohol/week: 12.0 standard drinks of alcohol Types: 12 Cans of Beer (12oz) per week Drug use: No REVIEW OF SYMPTOMS: The review of systems data was entered by the nurse and reviewed by or Nursing Notes: Dianne Cuello RN 07/03/2024 2:30 PM Signed REVIEW OF SYSTEMS: General: The patient denies fatigue, denies weight loss, denies weight gain, denies feeling hot, and denies feelings of cold. Eyes: The patient denies glaucoma, denies eye injury/surgery, wears glasses or contacts. Ear/Nose/Throat: The patient denies allergies, denies hayfever, denies ear infections, and denies bloody noses. Cardiovascular: The patient denies chest pain, denies heart disease, denies high blood pressure,denies cardiac stent, denies prior heart attack, denies irregular heart beat, denies high cholesterol, denies poor circulation, denies heart failure, other cardiac issues, denies claudication, denies cold feet, denies peripheral arterial stent. Respiratory: The patient denies tuberculosis, denies pneumonia, denies frequent cough, denies pulmonary embolism, denies shortness of breath, and denies coughing up blood. Gastrointestinal: The patient denies difficulty swallowing, denies acid reflux, denies ulcers, denies vomiting, denies jaundice/hepatitis, denies gallbladder problems, denies black or tarry stools, NOTES hemorrhoids, denies bleeding from rectum, denies diverticulitis, denies constipation, denies diarrhea, denies loss of stool control, and denies hernias. Kidney/Bladder: The patient denies kidney stones, denies urine infections, and denies bloody urine. Skin: The patient denies a history of skin cancer, denies bleeding/changing moles, and denies a history of skin rash. Neurologic: The patient denies a history of epilepsy/convulsions, denies headaches, denies head/spinal injuries, and denies stroke/TIA. Psychiatric: The patient denies psychiatric medications, denies depression, and denies voices, denies substance abuse. Endocrine: The patient denies thyroid disorders, denies diabetes, and denies hormonal problems. Hematologic: The patient denies a history of bruising, NOTES bleeding, and denies anemia, denies blood clots. Infections: The patient denies a history of measles and mumps, denies rheumatic fever, and denies sexually transmitted diseases. Musculoskeletal: The patient denies back pain/injury, denies back problems, denies sciatica, denies knee/foot trouble, denies arthritis, or denies gout. When was patient's last Mammogram screening? N/A Last Colonoscopy: 03/21/2008 Dianne Cuello RN PHYSICAL EXAMINATION: General: The patient is 64 year old, male well nourished, well hydrated in no acute distress. The patient is oriented to time, place, and person. VITALS: Blood pressure 140/80, pulse 60, temperature 36.7 C (98.1 F), height 177.8 cm (5' 10), weight 74.2 kg (163 lb 9.6 oz), SpO2 96%. Body mass index is 23.47 kg/m . HEENT: Normal cephalic, ataumatic, pupils are equally round, sclera are anicteric, mucous membranes are moist, oropharynx is clear. Neck has no masses, asymmetry or lymphadenopathy. Respiratory: Clear to auscultation and percussion. Normal respiratory excursion and pattern. Cardiac: Examination is regular rate and rhythm. Normal S1/S2 Abdominal exam: Soft, nontender, with no palpable masses. No hepatosplenomegaly. No palpable hernias. Extremities: no clubbing, cyanosis or edema. No adenopathy. LABORATORY VALUES: As Noted RADIOLOGIC STUDIES: As Noted Assessment IMPRESSION: screen for colon cancer, family history of colon cancer, hemorrhoids PLAN: I have reviewed my findings with the surgeon. Will plan for lower endoscopy. We discussed the risks and benefits of the planned endoscopy. I have informed the patient that complications can occur including failure to complete the endoscopy and perforation. Lizeth had the opportunity to ask questions concerning the planned endoscopy. My staff has also explained the procedure to the patient in understandable terms and has given the patient printed material concerning the procedure. Lizeth freely consents to surgery. I plan to use Golytely bowel preparation I have explained to the patient the difference between IV conscious sedation and MAC anesthesia - and I have offered either, according to the patient's wishes. I have explained that with IV conscious sedation there is no anesthesia provider available and therefore there is a limitation of the amount of IV medications that can be given and that the patient may wake up in the middle of the procedure and/or experience pain/discomfort during the procedure. Further discussion was done and the patient was given the opportunity to ask questions and all questions were answered. Lizeth chooses IV conscious sedation. Lizeth was counseled that if there are changes in his/her medical condition, to let the office know if surgery should proceed. If there are changes in patient's medical condition from time of this encounter to the day of the procedure that preclude anesthesia, patient may have procedure cancelled for patient's safety. Diagnoses: (Z12.11) Screen for colon cancer (primary encounter diagnosis) (Z80.0) Family history of colon cancer Portions of this documentation were copied and pasted from previous office visit notes in order to provide a cohesive continuity of the history. The note has been reviewed and edited and updated as necessary. Odalys Murillo APRN.AGRICULTURAL CONSULTANT documented in this encounter [facility] 07-03-2024 Note HNO ID: [id number] Author: ODALYS MURILLO APRN.BRAYDEN Service: ? Author Type: Nurse Practitioner Type: Progress Notes Filed: 07/03/2024 16:11 Note Text: HISTORY AND PHYSICAL Lizeth Estrella : 1960 REFERRING PHYSICIAN: No referring provider defined for this encounter. CHIEF COMPLAINT: Patient presents with: Consult: colonoscopy HPI: Lizeth is a 64 year old male referred for endoscopy. Lizeth notes due for screening colonoscopy- family history of colon cancer in brother. Lizeth denies abdominal pain.. Lizeth denies diarrhea. Lizeth denies constipation. Lizeth denies a change in bowel habits. Lizeth denies melena. Lizeth notes bright red blood per rectum. -painless, thinks it is a result of hemorrhoids Lizeth notes hemorrhoids. Lizeth denies heartburn. Lizeth denies dysphagia. Lizeth denies a history of ulcers/ peptic ulcer disease. Lizeth had a hx of right lung cancer 14 years ago- had 2/3 of his right lung removed. Was discharged from pulmonology at 10 year ced. Denies any CP, COB, wheezing, recent illness or hospitalizations. Lizeth notes family history of colon issues. Brother with colon cancer, just 2 months ago Lizeth has undergone prior endoscopy. [facility] in [place] in 2007 Current Outpatient Medications Medication Sig lisinopril (ZESTRIL, PRINIVIL) 10 mg tablet Take 10 mg by mouth once daily. atorvastatin (LIPITOR) 20 mg tablet Take 20 mg by mouth once daily. peg 3350-Electrolytes (GOLYTELY) 236-22.74-6.74 -5.86 gram suspension Take 4,000 mL by mouth one time only for 1 dose. Refer to printed prep instructions from your provider. No current facility-administered medications for this visit. ALLERGIES: Patient has no known allergies. PAST MEDICAL HISTORY Diagnosis Date Benign neoplasm of colon Elevated cholesterol History of colonic polyps 03/21/2008 HTN (hypertension) Internal hemorrhoids without mention of complication Personal history of colonic polyps Primary lung adenocarcinoma (HCC) 09/21/2013 Pulmonary embolism (HCC) PAST SURGICAL HISTORY Procedure Laterality Date COLONOSCOPY FLX DX W/COLLJ SPEC WHEN PFRMD 01/31/03 Colonoscopy COLONOSCOPY FLX DX W/COLLJ SPEC WHEN PFRMD 03/21/08 PAST SURGICAL HISTORY OF 09/21/2013 Right Pancoast tumor resection including upper lobectomy with en bloc resection of ribs 1, 2, and 3 and posterior elements of first and second vertebrae and right VATS exploration TRACHEOSTOMY (SPECIFY) 10/02/2013 Open tracheostomy. Decannulated 10/12/13 FAMILY HISTORY Problem Relation Age of Onset Cancer Mother 2002 melanoma skin cancer Hypertension Mother Cancer Father small cell lung cancer Diabetes Brother Diabetes Brother from CHF age 36 Social History Tobacco Use Smoking status: Former Current packs/day: 1.00 Average packs/day: 1 pack/day for 25.0 years (25.0 ttl pk-yrs) Types: Cigarettes Smokeless tobacco: Never Tobacco comments: quit Vaping Use Vaping status: Never Used Substance Use Topics Alcohol use: Yes Alcohol/week: 12.0 standard drinks of alcohol Types: 12 Cans of Beer (12oz) per week Drug use: No REVIEW OF SYMPTOMS: The review of systems data was entered by the nurse and reviewed by or Nursing Notes: Dianne Cuello RN 07/03/2024 2:30 PM Signed REVIEW OF SYSTEMS: General: The patient denies fatigue, denies weight loss, denies weight gain, denies feeling hot, and denies feelings of cold. Eyes: The patient denies glaucoma, denies eye injury/surgery, wears glasses or contacts. Ear/Nose/Throat: The patient denies allergies, denies hayfever, denies ear infections, and denies bloody noses. Cardiovascular: The patient denies chest pain, denies heart disease, denies high blood pressure,denies cardiac stent, denies prior heart attack, denies irregular heart beat, denies high cholesterol, denies poor circulation, denies heart failure, other cardiac issues, denies claudication, denies cold feet, denies peripheral arterial stent. Respiratory: The patient denies tuberculosis, denies pneumonia, denies frequent cough, denies pulmonary embolism, denies shortness of breath, and denies coughing up blood. Gastrointestinal: The patient denies difficulty swallowing, denies acid reflux, denies ulcers, denies vomiting, denies jaundice/hepatitis, denies gallbladder problems, denies black or tarry stools, NOTES hemorrhoids, denies bleeding from rectum, denies diverticulitis, denies constipation, denies diarrhea, denies loss of stool control, and denies hernias. Kidney/Bladder: The patient denies kidney stones, denies urine infections, and denies bloody urine. Skin: The patient denies a history of skin cancer, denies bleeding/changing moles, and denies a history of skin rash. Neurologic: The patient denies a history of epilepsy/convulsions, denies headaches, denies head/spinal injuries, and denies stroke/TIA. Psychiatric: The patient denies (more content not included)... [facility] 07-03-2024 Nurse Note REVIEW OF SYSTEMS: General: The patient denies fatigue, denies weight loss, denies weight gain, denies feeling hot, and denies feelings of cold. Eyes: The patient denies glaucoma, denies eye injury/surgery, wears glasses or contacts. Ear/Nose/Throat: The patient denies allergies, denies hayfever, denies ear infections, and denies bloody noses. Cardiovascular: The patient denies chest pain, denies heart disease, denies high blood pressure,denies cardiac stent, denies prior heart attack, denies irregular heart beat, denies high cholesterol, denies poor circulation, denies heart failure, other cardiac issues, denies claudication, denies cold feet, denies peripheral arterial stent. Respiratory: The patient denies tuberculosis, denies pneumonia, denies frequent cough, denies pulmonary embolism, denies shortness of breath, and denies coughing up blood. Gastrointestinal: The patient denies difficulty swallowing, denies acid reflux, denies ulcers, denies vomiting, denies jaundice/hepatitis, denies gallbladder problems, denies black or tarry stools, NOTES hemorrhoids, denies bleeding from rectum, denies diverticulitis, denies constipation, denies diarrhea, denies loss of stool control, and denies hernias. Kidney/Bladder: The patient denies kidney stones, denies urine infections, and denies bloody urine. Skin: The patient denies a history of skin cancer, denies bleeding/changing moles, and denies a history of skin rash. Neurologic: The patient denies a history of epilepsy/convulsions, denies headaches, denies head/spinal injuries, and denies stroke/TIA. Psychiatric: The patient denies psychiatric medications, denies depression, and denies voices, denies substance abuse. Endocrine: The patient denies thyroid disorders, denies diabetes, and denies hormonal problems. Hematologic: The patient denies a history of bruising, NOTES bleeding, and denies anemia, denies blood clots. Infections: The patient denies a history of measles and mumps, denies rheumatic fever, and denies sexually transmitted diseases. Musculoskeletal: The patient denies back pain/injury, denies back problems, denies sciatica, denies knee/foot trouble, denies arthritis, or denies gout. When was patient's last Mammogram screening? N/A Last Colonoscopy: 03/21/2008 Dianne Cuello RN documented in this encounter [facility] 06-20-2024 Note Subjective Patient ID: Lizeth Estrella is a 64 y.o. male. After discussing the use of ambient listening and audio recording in generating medical documentation, the patient verbally consented to use of this technology for today's visit. Chief Complaint Patient presents with Annual Exam Gap Closure (Health Maintenance) Gap Closure Colorectal Cancer Screening/Monitoring Never done There are no preventive care reminders to display for this patient. No results found for: HGBA1C HPI History of Present Illness The patient presents for a routine checkup. He is currently on a regimen of atorvastatin, Taclonex ointment, ketoconazole shampoo, and lisinopril. He reports no new health concerns. He underwent a colonoscopy in the past at [facility]. We have never been able to get those records. He has received his influenza and pneumonia vaccines and is up to date with his tetanus vaccine. He maintains a healthy diet and engages in regular physical activity. His sleep pattern is normal, and he reports a stable mood. He does not monitor his blood pressure at home. He reports no symptoms of headaches, dizziness, rhinorrhea, postnasal drip, cough, dyspnea, or chest pain. His bowel and bladder functions are normal, and he reports no skin issues or bleeding. He expresses no concerns about his overall health. His last meal was consumed at 11:00 AM today. He is in remission from lung cancer and does not require any follow-up for this condition. He experiences occasional shortness of breath during exertion. FAMILY HISTORY His mother of a stroke. His brother had stage IV colon cancer, which metastasized to the liver and lymph nodes, and subsequently developed gangrene, leading to leg amputation. ALLERGIES The patient has no known allergies. MEDICATIONS atorvastatin, Taclonex ointment, ketoconazole shampoo, lisinopril IMMUNIZATIONS He has received his influenza and pneumonia vaccines. He is up to date on his tetanus vaccine. The following portions of the patient's history were reviewed and updated as appropriate: allergies, current medications, past family history, past medical history, past social history, past surgical history and problem list. Objective Physical Exam Constitutional: Appearance: He is well-developed. HENT: Head: Normocephalic. Right Ear: External ear normal. Left Ear: External ear normal. Nose: Nose normal. Mouth/Throat: Mouth: Mucous membranes are moist. Eyes: General: Right eye: No discharge. Left eye: No discharge. Conjunctiva/sclera: Conjunctivae normal. Cardiovascular: Rate and Rhythm: Normal rate and regular rhythm. Heart sounds: Normal heart sounds. Pulmonary: Effort: Pulmonary effort is normal. No respiratory distress. Breath sounds: Normal breath sounds. Abdominal: Palpations: Abdomen is soft. Tenderness: There is no abdominal tenderness. Musculoskeletal: Cervical back: Normal range of motion and neck supple. Skin: General: Skin is warm and dry. Coloration: Skin is not pale. Neurological: Mental Status: He is alert. Mental status is at baseline. Coordination: Coordination normal. Psychiatric: Mood and Affect: Mood normal. Behavior: Behavior normal. Thought Content: Thought content normal. Judgment: Judgment normal. Physical Exam BP 137/84 Pulse 64 Temp 98.4 degrees F (36.9 degrees C) (Oral) Ht 5' 10 Wt 73 kg (161 lb) BMI 23.10 kg/m Assessment & Plan 1. Health maintenance. His blood pressure readings are within the normal range, albeit towards the higher end. His weight has increased by 2 pounds since the previous visit. He is not allergic to any medications. He is currently taking atorvastatin, Taclonex ointment, ketoconazole shampoo, and lisinopril. His last colonoscopy was conducted in 2019. He has expressed a desire to receive his COVID-19 and shingles vaccines at a pharmacy. He is up to date on his tetanus vaccine. A referral for a colonoscopy will be initiated due to his family history of colon cancer. He has been advised to consider receiving the RSV vaccine at a pharmacy. Laboratory tests will be ordered today. Prescriptions for ketoconazole shampoo and lisinopril will be refilled at [facility] in [facility]. 2. Lung cancer in remission. He is in remission and does not need to follow up with an oncologist. He reports occasional shortness of breath with exertion. Follow-up The patient is scheduled for a follow-up visit in 6 months. PROCEDURE Colonoscopy was performed approximately 2 years ago at [place]. Diagnoses and all orders for this visit: Well adult exam - CBC and Differential; Future - Comprehensive Metabolic Panel; Future - Lipid Panel; Future - TSH with Reflex Free T4; Future - PSA Monitor; Future - Lipid Panel - Comprehensive Metabolic Panel - PSA Monitor - TSH with Reflex Free T4 Screening for colon cancer - Ambulatory referral to General Surgery; Future (more content not included)... [facility] 06-20-2024 History of Presen t illness Narrative Subjective Patient ID: Lizeth Estrella is a 64 y.o. male. After discussing the use of ambient listening and audio recording in generating medical documentation, the patient verbally consented to use of this technology for today's visit. Chief Complaint Patient presents with Annual Exam Gap Closure (Health Maintenance) Gap Closure Colorectal Cancer Screening/Monitoring Never done There are no preventive care reminders to display for this patient. No results found for: HGBA1C HPI History of Present Illness The patient presents for a routine checkup. He is currently on a regimen of atorvastatin, Taclonex ointment, ketoconazole shampoo, and lisinopril. He reports no new health concerns. He underwent a colonoscopy in the past at [facility]. We have never been able to get those records. He has received his influenza and pneumonia vaccines and is up to date with his tetanus vaccine. He maintains a healthy diet and engages in regular physical activity. His sleep pattern is normal, and he reports a stable mood. He does not monitor his blood pressure at home. He reports no symptoms of headaches, dizziness, rhinorrhea, postnasal drip, cough, dyspnea, or chest pain. His bowel and bladder functions are normal, and he reports no skin issues or bleeding. He expresses no concerns about his overall health. His last meal was consumed at 11:00 AM today. He is in remission from lung cancer and does not require any follow-up for this condition. He experiences occasional shortness of breath during exertion. FAMILY HISTORY His mother of a stroke. His brother had stage IV colon cancer, which metastasized to the liver and lymph nodes, and subsequently developed gangrene, leading to leg amputation. ALLERGIES The patient has no known allergies. MEDICATIONS atorvastatin, Taclonex ointment, ketoconazole shampoo, lisinopril IMMUNIZATIONS He has received his influenza and pneumonia vaccines. He is up to date on his tetanus vaccine. The following portions of the patient's history were reviewed and updated as appropriate: allergies, current medications, past family history, past medical history, past social history, past surgical history and problem list. Objective Physical Exam Constitutional: Appearance: He is well-developed. HENT: Head: Normocephalic. Right Ear: External ear normal. Left Ear: External ear normal. Nose: Nose normal. Mouth/Throat: Mouth: Mucous membranes are moist. Eyes: General: Right eye: No discharge. Left eye: No discharge. Conjunctiva/sclera: Conjunctivae normal. Cardiovascular: Rate and Rhythm: Normal rate and regular rhythm. Heart sounds: Normal heart sounds. Pulmonary: Effort: Pulmonary effort is normal. No respiratory distress. Breath sounds: Normal breath sounds. Abdominal: Palpations: Abdomen is soft. Tenderness: There is no abdominal tenderness. Musculoskeletal: Cervical back: Normal range of motion and neck supple. Skin: General: Skin is warm and dry. Coloration: Skin is not pale. Neurological: Mental Status: He is alert. Mental status is at baseline. Coordination: Coordination normal. Psychiatric: Mood and Affect: Mood normal. Behavior: Behavior normal. Thought Content: Thought content normal. Judgment: Judgment normal. Physical Exam BP 137/84 Pulse 64 Temp 98.4 F (36.9 C) (Oral) Ht 5' 10 Wt 73 kg (161 lb) BMI 23.10 kg/m Assessment & Plan 1. Health maintenance. His blood pressure readings are within the normal range, albeit towards the higher end. His weight has increased by 2 pounds since the previous visit. He is not allergic to any medications. He is currently taking atorvastatin, Taclonex ointment, ketoconazole shampoo, and lisinopril. His last colonoscopy was conducted in 2019. He has expressed a desire to receive his COVID-19 and shingles vaccines at a pharmacy. He is up to date on his tetanus vaccine. A referral for a colonoscopy will be initiated due to his family history of colon cancer. He has been advised to consider receiving the RSV vaccine at a pharmacy. Laboratory tests will be ordered today. Prescriptions for ketoconazole shampoo and lisinopril will be refilled at [facility] in [facility]. 2. Lung cancer in remission. He is in remission and does not need to follow up with an oncologist. He reports occasional shortness of breath with exertion. Follow-up The patient is scheduled for a follow-up visit in 6 months. PROCEDURE Colonoscopy was performed approximately 2 years ago at [place]. Diagnoses and all orders for this visit: Well adult exam - CBC and Differential; Future - Comprehensive Metabolic Panel; Future - Lipid Panel; Future - TSH with Reflex Free T4; Future - PSA Monitor; Future - Lipid Panel - Comprehensive Metabolic Panel - PSA Monitor - TSH with Reflex Free T4 Screening for colon cancer - Ambulatory referral to General Surgery; Future Essential hypertension - lisinopriL (PRINIVIL,ZESTRIL) 10 MG tablet; Take 1 (one) tablet (10 mg total) by mouth daily . Psoriasis - ketoconazole (NIZORAL) 2 % shampoo; Apply topically twice weekly Start: 06/22/24. Hyperlipidemia, unspecified hyperlipidemia type - atorvastatin (LIPITOR) 20 MG tablet; Take 1 (one) tablet (20 mg total) by mouth daily . Other orders - CBC Auto Differential No problem-specific Assessment & Plan notes found for this encounter. Continue current medication unless otherwise indicated. For any new medications prescribed today, patient was educated about indications for the medication, how to take the medication and potential side effects of the medications. Return in about 6 months (around 12/18/2024) for Follow Up. Christy Mcgee MD documented in this encounter [facility] 06-20-2024 History of Presen t illness Narrative Subjective Patient ID: Lizeth Estrella is a 64 y.o. male. After discussing the use of ambient listening and audio recording in generating medical documentation, the patient verbally consented to use of this technology for today's visit. Chief Complaint Patient presents with Annual Exam Gap Closure (Health Maintenance) Gap Closure Colorectal Cancer Screening/Monitoring Never done There are no preventive care reminders to display for this patient. No results found for: HGBA1C HPI History of Present Illness The patient presents for a routine checkup. He is currently on a regimen of atorvastatin, Taclonex ointment, ketoconazole shampoo, and lisinopril. He reports no new health concerns. He underwent a colonoscopy in the past at [facility]. We have never been able to get those records. He has received his influenza and pneumonia vaccines and is up to date with his tetanus vaccine. He maintains a healthy diet and engages in regular physical activity. His sleep pattern is normal, and he reports a stable mood. He does not monitor his blood pressure at home. He reports no symptoms of headaches, dizziness, rhinorrhea, postnasal drip, cough, dyspnea, or chest pain. His bowel and bladder functions are normal, and he reports no skin issues or bleeding. He expresses no concerns about his overall health. His last meal was consumed at 11:00 AM today. He is in remission from lung cancer and does not require any follow-up for this condition. He experiences occasional shortness of breath during exertion. FAMILY HISTORY His mother of a stroke. His brother had stage IV colon cancer, which metastasized to the liver and lymph nodes, and subsequently developed gangrene, leading to leg amputation. ALLERGIES The patient has no known allergies. MEDICATIONS atorvastatin, Taclonex ointment, ketoconazole shampoo, lisinopril IMMUNIZATIONS He has received his influenza and pneumonia vaccines. He is up to date on his tetanus vaccine. The following portions of the patient's history were reviewed and updated as appropriate: allergies, current medications, past family history, past medical history, past social history, past surgical history and problem list. Objective Physical Exam Constitutional: Appearance: He is well-developed. HENT: Head: Normocephalic. Right Ear: External ear normal. Left Ear: External ear normal. Nose: Nose normal. Mouth/Throat: Mouth: Mucous membranes are moist. Eyes: General: Right eye: No discharge. Left eye: No discharge. Conjunctiva/sclera: Conjunctivae normal. Cardiovascular: Rate and Rhythm: Normal rate and regular rhythm. Heart sounds: Normal heart sounds. Pulmonary: Effort: Pulmonary effort is normal. No respiratory distress. Breath sounds: Normal breath sounds. Abdominal: Palpations: Abdomen is soft. Tenderness: There is no abdominal tenderness. Musculoskeletal: Cervical back: Normal range of motion and neck supple. Skin: General: Skin is warm and dry. Coloration: Skin is not pale. Neurological: Mental Status: He is alert. Mental status is at baseline. Coordination: Coordination normal. Psychiatric: Mood and Affect: Mood normal. Behavior: Behavior normal. Thought Content: Thought content normal. Judgment: Judgment normal. Physical Exam BP 137/84 Pulse 64 Temp 98.4 F (36.9 C) (Oral) Ht 5' 10 Wt 73 kg (161 lb) BMI 23.10 kg/m Assessment & Plan 1. Health maintenance. His blood pressure readings are within the normal range, albeit towards the higher end. His weight has increased by 2 pounds since the previous visit. He is not allergic to any medications. He is currently taking atorvastatin, Taclonex ointment, ketoconazole shampoo, and lisinopril. His last colonoscopy was conducted in 2019. He has expressed a desire to receive his COVID-19 and shingles vaccines at a pharmacy. He is up to date on his tetanus vaccine. A referral for a colonoscopy will be initiated due to his family history of colon cancer. He has been advised to consider receiving the RSV vaccine at a pharmacy. Laboratory tests will be ordered today. Prescriptions for ketoconazole shampoo and lisinopril will be refilled at [facility] in [facility]. 2. Lung cancer in remission. He is in remission and does not need to follow up with an oncologist. He reports occasional shortness of breath with exertion. Follow-up The patient is scheduled for a follow-up visit in 6 months. PROCEDURE Colonoscopy was performed approximately 2 years ago at [place]. Diagnoses and all orders for this visit: Well adult exam - CBC and Differential; Future - Comprehensive Metabolic Panel; Future - Lipid Panel; Future - TSH with Reflex Free T4; Future - PSA Monitor; Future - Lipid Panel - Comprehensive Metabolic Panel - PSA Monitor - TSH with Reflex Free T4 Screening for colon cancer - Ambulatory referral to General Surgery; Future Essential hypertension - lisinopriL (PRINIVIL,ZESTRIL) 10 MG tablet; Take 1 (one) tablet (10 mg total) by mouth daily . Psoriasis - ketoconazole (NIZORAL) 2 % shampoo; Apply topically twice weekly Start: 06/22/24. Hyperlipidemia, unspecified hyperlipidemia type - atorvastatin (LIPITOR) 20 MG tablet; Take 1 (one) tablet (20 mg total) by mouth daily . Other orders - CBC Auto Differential No problem-specific Assessment & Plan notes found for this encounter. Continue current medication unless otherwise indicated. For any new medications prescribed today, patient was educated about indications for the medication, how to take the medication and potential side effects of the medications. Return in about 6 months (around 12/18/2024) for Follow Up. Christy Mcgee MD documented in this encounter [facility] 07-06-2023 History of Presen t illness Narrative Subjective Patient ID: Lizeth Estrella is a 63 y.o. male. Chief Complaint Patient presents with Hypertension Hyperlipidemia Follow-up He is here for a follow up on hypertension and hyperlipidemia. These conditions are stable. He doesn't check his blood pressure regularly at home. He is eating a healthy diet. He eats lots of fruits and vegetables. Not much fried food. No salt. He walks at times. He sleeps well. His mood is good. He is done with his appointments at [facility] now for lung cancer. He is in remission. He gets short of breath with exertion. That is about the same. His mother of a stroke. His brother has colon cancer stage 4. He had a colonoscopy a couple of years ago at [facility] which was normal except for hemorrhoids. I haven't been able to get that record. No problems at present. The following portions of the patient's history were reviewed and updated as appropriate: allergies, current medications, past family history, past medical history, past social history, past surgical history and problem list. Review of Systems Constitutional: Negative. HENT: Negative for hearing loss, postnasal drip, rhinorrhea and sore throat. Eyes: Negative for visual disturbance. Respiratory: Negative for cough and shortness of breath. Cardiovascular: Negative for chest pain. Gastrointestinal: Negative for abdominal pain, constipation, diarrhea, nausea and vomiting. Genitourinary: Negative for difficulty urinating. Skin: Negative for color change and rash. Neurological: Negative for dizziness and headaches. Hematological: Does not bruise/bleed easily. Objective Physical Exam Constitutional: Appearance: He is well-developed. HENT: Head: Normocephalic. Right Ear: External ear normal. Left Ear: External ear normal. Nose: Nose normal. Mouth/Throat: Mouth: Mucous membranes are moist. Eyes: General: Right eye: No discharge. Left eye: No discharge. Conjunctiva/sclera: Conjunctivae normal. Cardiovascular: Rate and Rhythm: Normal rate and regular rhythm. Heart sounds: Normal heart sounds. Pulmonary: Effort: Pulmonary effort is normal. No respiratory distress. Breath sounds: Normal breath sounds. Abdominal: Palpations: Abdomen is soft. Tenderness: There is no abdominal tenderness. Musculoskeletal: Cervical back: Normal range of motion and neck supple. Skin: General: Skin is warm and dry. Coloration: Skin is not pale. Neurological: Mental Status: He is alert. Mental status is at baseline. Coordination: Coordination normal. Psychiatric: Mood and Affect: Mood normal. Behavior: Behavior normal. Thought Content: Thought content normal. Judgment: Judgment normal. BP 138/81 Pulse 75 Temp 98.3 F (36.8 C) (Infrared) Ht 5' 10 Wt 72.3 kg (159 lb 8 oz) BMI 22.89 kg/m Assessment/Plan: Diagnoses and all orders for this visit: Well adult exam - CBC and Differential; Future - Comprehensive Metabolic Panel; Future - Lipid Panel; Future - TSH with Reflex Free T4; Future - PSA Monitor; Future Essential hypertension - lisinopriL (PRINIVIL,ZESTRIL) 10 MG tablet; Take 1 (one) tablet (10 mg total) by mouth daily . Psoriasis - ketoconazole (NIZORAL) 2 % shampoo; Apply topically twice weekly Start: 07/08/23. Seborrheic dermatitis - calcipotriene-betamethasone (TACLONEX) ointment; Apply topically daily . Hyperlipidemia, unspecified hyperlipidemia type - atorvastatin (LIPITOR) 20 MG tablet; Take 1 (one) tablet (20 mg total) by mouth daily . Other orders - Influenza IIV4 3yo or >,Fluzone Quad No problem-specific Assessment & Plan notes found for this encounter. Continue current medication unless otherwise indicated. For any new medications prescribed today, patient was educated about indications for the medication, how to take the medication and potential side effects of the medications. Return in about 6 months (around 01/05/2024) for Follow Up. Christy Mcgee MD 08/16/2018 1:38 PM 02/14/2019 3:03 PM 09/23/2021 3:28 PM 07/06/2023 3:25 PM Depression Screening Little interest or pleasure in doing things 3 0 0 0 Feeling down, depressed, or hopeless 0 0 0 0 PHQ-2 Total Score 3 0 0 0 Trouble falling or staying asleep, or sleeping too much 0 0 0 0 Feeling tired or having little energy 0 0 0 0 Poor appetite or overeating 0 0 0 0 Feeling bad about yourself - or that you are a failure or have let yourself or your family down 0 0 0 0 Trouble concentrating on things, such as reading the newspaper or watching television 0 0 0 0 Moving or speaking so slowly that other people could have noticed. Or the opposite - being so fidgety or restless that you have been moving around a lot more than usual 0 0 0 0 Thoughts that you would be better off , or of hurting yourself in some way 0 0 0 0 PHQ-9 Total Score 3 0 0 0 If you checked off any problems, how difficult have these problems made it for you to do your work, take care of things at home, or get along with other people? Not difficult at all Not difficult at all Not difficult at all Not difficult at all documented in this encounter [facility] 03-01-2023 Instructions Ofelia Morales OD - 03/01/2023 4:00 PM EDT ASSESSMENT/PLAN: 1. Nuclear sclerotic cataract of both eyes - ICD9: 366.16, ICD10: H25.13 (primary diagnosis) Mild cataract in both eyes. Well tolerated at this time. Discussed possible future affect on daily activities to watch for. Monitor as instructed. 2. Hyperopia, bilateral - ICD9: 367.0, ICD10: H52.03 3. Regular astigmatism of left eye - ICD9: 367.21, ICD10: H52.222 4. Presbyopia - ICD9: 367.4, ICD10: H52.4 Suggested glasses to be used real time analyst. Recommended yearly exams. documented in this encounter [facility] 03-01-2023 History of Presen t illness Narrative ASSESSMENT/PLAN: 1. Nuclear sclerotic cataract of both eyes - ICD9: 366.16, ICD10: H25.13 (primary diagnosis) Mild cataract in both eyes. Well tolerated at this time. Discussed possible future affect on daily activities to watch for. Monitor as instructed. 2. Hyperopia, bilateral - ICD9: 367.0, ICD10: H52.03 3. Regular astigmatism of left eye - ICD9: 367.21, ICD10: H52.222 4. Presbyopia - ICD9: 367.4, ICD10: H52.4 Suggested glasses to be used real time analyst. Recommended yearly exams. Ofelia Morales, OD I have confirmed and edited as necessary the relevant ophthalmic history, ROS, and the neuro exam findings as obtained by others. documented in this encounter [facility] 09-08-2022 History of Presen t illness Narrative Subjective Patient ID: Lizeth Estrella is a 62 y.o. male. Chief Complaint Patient presents with Hypertension Hyperlipidemia Gap Closure (Health Maintenance) Gap Closure Colorectal Cancer Screening/Monitoring Never done There are no preventive care reminders to display for this patient. No results found for: HGBA1C He is here for a follow up on hypertension and hyperlipidemia. These conditions are stable. He doesn't check his blood pressure regularly at home. He is eating a healthy diet. He eats lots of fruits and vegetables. Not much fried food. No salt. He walks at times. He sleeps well. His mood is good. He is done with his appointments at [facility] now for lung cancer. He is in remission. He gets short of breath with exertion. That is about the same. His mother recently of a stroke. His brother has colon cancer stage 4. He had a colonoscopy a couple of years ago at [facility] which was normal except for hemorrhoids. I haven't been able to get that record. No problems at present. The following portions of the patient's history were reviewed and updated as appropriate: allergies, current medications, past family history, past medical history, past social history, past surgical history and problem list. Review of Systems Constitutional: Negative. HENT: Negative for hearing loss, postnasal drip, rhinorrhea and sore throat. Eyes: Negative for visual disturbance. Respiratory: Negative for cough and shortness of breath. Cardiovascular: Negative for chest pain. Gastrointestinal: Negative for abdominal pain, constipation, diarrhea, nausea and vomiting. Genitourinary: Negative for difficulty urinating. Skin: Negative for color change and rash. Neurological: Negative for dizziness and headaches. Hematological: Does not bruise/bleed easily. Objective Physical Exam Constitutional: Appearance: He is well-developed. HENT: Head: Normocephalic. Right Ear: External ear normal. Left Ear: External ear normal. Nose: Nose normal. Mouth/Throat: Mouth: Mucous membranes are moist. Eyes: General: Right eye: No discharge. Left eye: No discharge. Conjunctiva/sclera: Conjunctivae normal. Cardiovascular: Rate and Rhythm: Normal rate and regular rhythm. Heart sounds: Normal heart sounds. Pulmonary: Effort: Pulmonary effort is normal. No respiratory distress. Breath sounds: Normal breath sounds. Abdominal: Palpations: Abdomen is soft. Tenderness: There is no abdominal tenderness. Musculoskeletal: Cervical back: Normal range of motion and neck supple. Skin: General: Skin is warm and dry. Coloration: Skin is not pale. Neurological: Mental Status: He is alert. Mental status is at baseline. Coordination: Coordination normal. Psychiatric: Mood and Affect: Mood normal. Behavior: Behavior normal. Thought Content: Thought content normal. Judgment: Judgment normal. BP 134/80 Pulse 81 Temp 98.7 F (37.1 C) (Infrared) Ht 5' 10 Wt 73 kg (161 lb) BMI 23.10 kg/m Assessment/Plan: Diagnoses and all orders for this visit: Seborrheic dermatitis - calcipotriene-betamethasone (TACLONEX) ointment; Apply topically daily . Essential hypertension - Comprehensive Metabolic Panel; Future - Lipid Panel; Future - CBC and Differential; Future - TSH with Reflex Free T4; Future - lisinopriL (PRINIVIL,ZESTRIL) 10 MG tablet; Take 1 (one) tablet (10 mg total) by mouth daily . Nocturia - PSA Monitor; Future Psoriasis - ketoconazole (NIZORAL) 2 % shampoo; Apply topically twice weekly Start: 09/10/22. Hyperlipidemia, unspecified hyperlipidemia type - atorvastatin (LIPITOR) 20 MG tablet; Take 1 (one) tablet (20 mg total) by mouth daily . No problem-specific Assessment & Plan notes found for this encounter. Continue current medication unless otherwise indicated. For any new medications prescribed today, patient was educated about indications for the medication, how to take the medication and potential side effects of the medications. Return in about 6 months (around 03/08/2023) for Follow Up. Christy Mcgee MD documented in this encounter [facility] 08-25-2022 Telephone encounter Note LM with patient over due for his 6 month follow up appt A 30 day supply of medication can be sent to his local pharmacy, but he'll need to be seen for any additional mediation refills. [facility] 08-25-2022 Telephone encounter Note ----- Message from Melissa Holloway sent at 08/25/2022 2:51 PM EST ----- Regarding: Rx Refill Contact: HUNTER [phone] MEDICATION REFILL REQUEST: PCP: Christy Mcgee MD Patient called 08/25/22 and is requesting a medication refill for atorvastatin (LIPITOR) 20 MG tablet lisinopriL (PRINIVIL,ZESTRIL) 10 MG tablet ketoconazole (NIZORAL) 2 % shampoo. This was confirmed from the current medication list found in the patients chart. Supply Requested: # of days: 90 days Method of receiving: Send to pharmacy Last set of flowsheet rows for OARRS report: OARRS/NARxCHECK Report Received and Assessed: No data found Date controlled substance agreement signed: No data found Date of last drug screen: No data found Functional Assessment: No data found Will this refill be sent to the preferred pharmacy listed below? Yes Preferred pharmacies: [facility]/pharmacy #[id number] - [place], [place] - [address] [facility] [id number] Pt Call Back Number Work Phone Not on file. Patient call back message sent to the primary care clinical pool. Melissa Holloway [facility] 08-25-2022 Miscellaneous Notes LM with patient over due for his 6 month follow up appt A 30 day supply of medication can be sent to his local pharmacy, but he'll need to be seen for any additional mediation refills. ----- Message from Melissa Holloway sent at 08/25/2022 2:51 PM EST ----- Regarding: Rx Refill Contact: CHERRY FORK [phone] MEDICATION REFILL REQUEST: PCP: Christy Mcgee MD Patient called 08/25/22 and is requesting a medication refill for atorvastatin (LIPITOR) 20 MG tablet lisinopriL (PRINIVIL,ZESTRIL) 10 MG tablet ketoconazole (NIZORAL) 2 % shampoo. This was confirmed from the current medication list found in the patients chart. Supply Requested: # of days: 90 days Method of receiving: Send to pharmacy Last set of flowsheet rows for OARRS report: OARRS/NARxCHECK Report Received and Assessed: No data found Date controlled substance agreement signed: No data found Date of last drug screen: No data found Functional Assessment: No data found Will this refill be sent to the preferred pharmacy listed below? Yes Preferred pharmacies: [id number] - [place], [place] - [address] [place] [address] [place] [address] Pt Call Back Number Work Phone Not on file. Patient call back message sent to the primary care clinical pool. Melissa Holloway documented in this encounter [facility] 09-23-2021 History of Presen t illness Narrative Subjective Patient ID: Lizeth Estrella is a 61 y.o. male. Chief Complaint Patient presents with Hypertension Hyperlipidemia Follow-up He is here for a follow up on hypertension and hyperlipidemia. These conditions are stable. His blood pressure is 124/85 at home. He is eating a healthy diet. He eats lots of fruits and vegetables. Not much fried food. No salt. He walks at times. He sleeps well. His mood is good. He is done with his appointments at [facility] now for lung cancer. He is in remission. He gets short of breath with exertion. That is about the same. No problems at present. The following portions of the patient's history were reviewed and updated as appropriate: allergies, current medications, past family history, past medical history, past social history, past surgical history and problem list. Review of Systems Constitutional: Negative. HENT: Negative for hearing loss, postnasal drip, rhinorrhea and sore throat. Eyes: Negative for visual disturbance. Respiratory: Negative for cough and shortness of breath. Cardiovascular: Negative for chest pain. Gastrointestinal: Negative for abdominal pain, constipation, diarrhea, nausea and vomiting. Genitourinary: Negative for difficulty urinating. Skin: Negative for color change and rash. Neurological: Negative for dizziness and headaches. Hematological: Does not bruise/bleed easily. Objective Physical Exam Constitutional: Appearance: He is well-developed. HENT: Head: Normocephalic. Right Ear: External ear normal. Left Ear: External ear normal. Nose: Nose normal. Mouth/Throat: Mouth: Mucous membranes are moist. Eyes: General: Right eye: No discharge. Left eye: No discharge. Conjunctiva/sclera: Conjunctivae normal. Cardiovascular: Rate and Rhythm: Normal rate and regular rhythm. Heart sounds: Normal heart sounds. Pulmonary: Effort: Pulmonary effort is normal. No respiratory distress. Breath sounds: Normal breath sounds. Abdominal: Palpations: Abdomen is soft. Tenderness: There is no abdominal tenderness. Musculoskeletal: Cervical back: Normal range of motion and neck supple. Skin: General: Skin is warm and dry. Coloration: Skin is not pale. Neurological: Mental Status: He is alert. Mental status is at baseline. Coordination: Coordination normal. Psychiatric: Mood and Affect: Mood normal. Behavior: Behavior normal. Thought Content: Thought content normal. Judgment: Judgment normal. BP 131/84 Pulse 79 Temp 98.7 F (37.1 C) (Infrared) Ht 5' 10 Wt 74.8 kg (165 lb) BMI 23.68 kg/m Assessment/Plan: Diagnoses and all orders for this visit: Well adult exam - Comprehensive Metabolic Panel; Future - Lipid Panel; Future - CBC and Differential; Future - TSH with Reflex Free T4; Future Essential hypertension - Comprehensive Metabolic Panel; Future - Lipid Panel; Future - CBC and Differential; Future - TSH with Reflex Free T4; Future - lisinopriL (PRINIVIL,ZESTRIL) 10 MG tablet; Take 1 (one) tablet (10 mg total) by mouth daily . Nocturia - PSA Monitor; Future Hyperlipidemia, unspecified hyperlipidemia type - atorvastatin (LIPITOR) 20 MG tablet; Take 1 (one) tablet (20 mg total) by mouth daily . Immunization due - Influenza IIV4 3yo or >,Fluzone Quad No problem-specific Assessment & Plan notes found for this encounter. Continue current medication unless otherwise indicated. For any new medications prescribed today, patient was educated about indications for the medication, how to take the medication and potential side effects of the medications. Return in about 6 months (around 03/26/2022) for Follow Up. Chrsity Mcgee MD Depression Screening 08/16/2018 02/14/2019 09/23/2021 Little interest or pleasure in doing things 3 0 0 Feeling down, depressed, or hopeless 0 0 0 PHQ-2 Total Score 3 0 0 Trouble falling or staying asleep, or sleeping too much 0 0 0 Feeling tired or having little energy 0 0 0 Poor appetite or overeating 0 0 0 Feeling bad about yourself - or that you are a failure or have let yourself or your family down 0 0 0 Trouble concentrating on things, such as reading the newspaper or watching television 0 0 0 Moving or speaking so slowly that other people could have noticed. Or the opposite - being so fidgety or restless that you have been moving around a lot more than usual 0 0 0 Thoughts that you would be better off , or of hurting yourself in some way 0 0 0 PHQ-9 Total Score 3 0 0 If you checked off any problems, how difficult have these problems made it for you to do your work, take care of things at home, or get along with other people? Not difficult at all Not difficult at all Not difficult at all Depression Screening 08/16/2018 02/14/2019 09/23/2021 Little interest or pleasure in doing things 3 0 0 Feeling down, depressed, or hopeless 0 0 0 PHQ-2 Total Score 3 0 0 Trouble falling or staying asleep, or sleeping too much 0 0 0 Feeling tired or having little energy 0 0 0 Poor appetite or overeating 0 0 0 Feeling bad about yourself - or that you are a failure or have let yourself or your family down 0 0 0 Trouble concentrating on things, such as reading the newspaper or watching television 0 0 0 Moving or speaking so slowly that other people could have noticed. Or the opposite - being so fidgety or restless that you have been moving around a lot more than usual 0 0 0 Thoughts that you would be better off , or of hurting yourself in some way 0 0 0 PHQ-9 Total Score 3 0 0 If you checked off any problems, how difficult have these problems made it for you to do your work, take care of things at home, or get along with other people? Not difficult at all Not difficult at all Not difficult at all documented in this encounter [facility] 09-04-2021 Miscellaneous Notes Patient requesting medication refill. MARY 09/19/20 NOV 09/23/21 Pended to provider. ----- Message from Octavia Sykes sent at 09/04/2021 2:45 PM EST ----- Regarding: rx refill Contact: FriendHunter MEDICATION REFILL REQUEST: MAY 28 PCP: Christy Mcgee MD Patient called 09/04/21 and is requesting a medication refill for atorvastatin (LIPITOR) 20 MG tablet lisinopriL (PRINIVIL,ZESTRIL) 10 MG tablet This was confirmed from the current medication list found in the patients chart. Supply Requested: # of days: 90 days Method of receiving: Send to pharmacy Last set of flowsheet rows for OARRS report: OARRS/NARxCHECK Report Received and Assessed: No data found Date controlled substance agreement signed: No data found Date of last drug screen: No data found Functional Assessment: No data found Will this refill be sent to the preferred pharmacy listed below? Yes Preferred pharmacies: [facility] [place] [address] [address] Call Back Number Patient call back message sent to the primary care clinical pool. Octavia Sykes documented in this encounter [facility] 06-11-2021 History of Presen t illness Narrative Images from the original note were not included. Subjective Patient ID: Lizeth Estrella is a 61 y.o. male. HPI: 61-year-old male presents urgent care with complaint of 3-day history of rash. Patient states he has rash on his face, arms, groin area. Patient believes is possibly poison oak. He bought an haaf-khy-odfaaui medication which aggravated his skin even further. Patient has used calamine to help alleviate the irritation. He states that his face is now becoming slightly swollen. Denies any difficulty breathing or swallowing. The following portions of the patient's history were reviewed and updated as appropriate: allergies, current medications, past medical history and problem list. Review of Systems Constitutional: Negative for fatigue and fever. All systems reviewed with pertinent positives and negatives mentioned below. HENT: Negative for congestion, ear pain and sore throat. Eyes: Negative for redness and itching. Respiratory: Negative for cough and shortness of breath. Cardiovascular: Negative for chest pain and palpitations. Gastrointestinal: Negative for abdominal pain, diarrhea, nausea and vomiting. Skin: Positive for rash. Neurological: Negative for dizziness, weakness and headaches. Objective Physical Exam Constitutional: Appearance: Normal appearance. HENT: Head: Normocephalic. Right Ear: External ear normal. Left Ear: External ear normal. Nose: Nose normal. Mouth/Throat: Mouth: Mucous membranes are moist. Eyes: Conjunctiva/sclera: Conjunctivae normal. Pulmonary: Effort: Pulmonary effort is normal. Musculoskeletal: General: Normal range of motion. Cervical back: Neck supple. Skin: General: Skin is warm and dry. Findings: Rash present. Rash is papular (fine) and vesicular. Neurological: General: No focal deficit present. Mental Status: He is alert and oriented to person, place, and time. Psychiatric: Mood and Affect: Mood normal. Behavior: Behavior normal. PROCEDURE Procedures Assessment/Plan: Problem List Items Addressed This Visit None Visit Diagnoses Dermatitis due to plants, including poison garry, sumac, and oak - Primary Relevant Medications methylPREDNISolone sod suc(PF) (SOLU-medrol) Injection 125 mg (Completed) (Start on 06/11/2021 2:00 PM) methylPREDNISolone (MEDROL DOSEPACK) 4 mg tablet Discussion Notes: Patient history and exam consistent with rash caused by a plant such as oak or garry. Patient is given Solu-Medrol injection here, Medrol Dosepak for home use. I did address his blood pressure with him. Patient states he has been out of blood pressure medicine for several months. Patient denies any chest pain, shortness of breath, dizziness, headaches, blurry vision. Patient is advised to go to the ER should he develop any of these symptoms. Otherwise follow-up with his PCP for recheck and refill of his blood pressure medication. Patient voices understanding of instructions. documented in this encounter [facility] 11-22-2013 History of Past i llness Narrative Problem Noted Date Diagnosed Date Resolved Date SUMMARY 11/22/2013 11/22/2013 Diarrhea 10/17/2013 11/22/2013 Overview: Patient with loose stool. Patient states it is getting worse. Patient stopped TF because of loose stool. Stool for C diff is negative on 10/17/2013. Diarrhea has decreased with Immodium Plan - Start Immodium qid - Continue TF . Leukocytosis 10/14/2013 10/17/2013 Overview: S/p: right thoracotomy, en bloc right upper lobectomy 09/21/13. Afebrile. No tachycardia or hypotension. Clear drainage from chest drains. CXR shows bilateral atelectasis with small right effusion. Rising leukocytosis noted 10.07 (10/12) > 17.06 (10/13) > 20.12 (10/14). 13.04 (10/15)--> 9.58 (10/16). Currently receiving zosyn 3.375 grams IV every 6 hours. WBC wnl leukocytosis resolved PLAN: -Continue augmentin elixir through corpak -Monitor labs and vitals -Aspiration precautions, aggressive bronchopulmonary hygiene. . DVT prophylaxis 10/11/2013 11/22/2013 Overview: No signs or symptoms of DVT/PE at discharge. Plan: - Continue ambulation . Discharge planning 10/10/2013 4 Overview: Lizeth Estrella is Single and lives in [place], [place]. At this time, we anticipate that the patient will be discharged home Plan: - Discussed needs with patient. - Collaborated with Case management to facilitate DC process . Bronchopleural fistula 10/02/201311/22 Overview: October 05, 2013 -October 02, 2013 air leak in R chest tube on ventilator support. Keep tube for now. Small air space at apex. October 09, 2013 - patient has mild accumulation of air in R chest cavity not causing HD compromise, minimally changed from yday but increased over weekend - CT currently at water seal October 10, 2013- will remove CT #2, keep CT #1, change jun to bulb Leukocytosis 09/29/2013 10/04/2013 Overview: WBC increased to 15K on 09/29 but afebrile. BAL, UC and BC sent and -ve so far. Started on Zosyn. WBC remains elevated (12.75k) but still afebrile. Continue zosyn, f/u cultures. Agitation 09/28/2013 10/17/2013 Overview: ICU stay complicated by agitation (opioid withdrawal), and started on seroquel 100 TID and with prn IV haldol. Transferred to step down ICU 10/10/13 began to taper off seroquel to 100mg at night. Today is pleasant, cooperative and oriented x 3. No agitation overnight. agitation resolved Plan: - Stop seroquel 100 mg at night and scheduled oxycodone. Continue oxycodone prn dose. - Continue to monitor . Atrial fibrillation 09/26/2013 11/23/19 Overview: No prior history of atrial fibrillation and developed atrial fib on 09/26/2013, treated with given IV magnesium, beta blockers and amiodarone. Currently in sinus rhythm on amiodarone 200 mg BID (since 09/30/13) and metoprolol 50 mg BID. Plan: - Decrease lopressor to 37.5mg every 8 hours via JT - Amiodarone to 200 mg daily until 10/21/13 then stop. . Acute lung injury 09/25/2013 11/22/2013 Malnutrition of moderate degree 09/25/2013 11/22/2013 Overview: NPO after protracted hospital stay. Nutrition consulted for moderate malnutrition in the context of acute Illness or Injury based on weight loss and muscle loss. Currently has corpak (placed 09/25/13) and receiving Peptamen AF at 75 ml/ hour (at goal rate). Failed bedside swallow 10/10 and had aspiration on modified barium swallow on 10/11. Plan: - Continue tube feeds now - Continue water flush at 120ml every 4 hours - Plan to repeat barium swallow one week after trach decannulation (ordered) . Acute blood loss anemia 09/24/201309/23 Overview: Required several PRBC Tx. Stable Respiratory failure, acute 09/23/2013 0 11/22/2013 Overview: Hypoxic respiratory failure related to post operative changes and post operative PNA that resolved. S/P trach on 10/02 with 7.5 Bivona TTS. Downsized to 6 Airlon 10/11 and tolerating being capped during the day. Decannulated 10/12/13. Trach reinserted 10/13 at bedside and suctioned our large mucus plug. Sent back to ICU back to step down on 10/14. Patient decannulated again on 10/17/2013 Plan: - Use acapella - Cough/deep breathe - frequent ambulation . Fluid overload 09/22/2013 09/25/2013 Overview: Net +4359 ml last 24 hours, Urine is dark Plan: 09/23/13 Respiratory failure. Intubated & admitted to ICU. Will reinsert villafuerte. Continue IV fluids @ 100/hr Post-op pain 09/21/2013 11/22/2013 Overview: Patient states adequate pain control with lidocaine patch. Has oxycodone 10 mg every 6 hours PRN but has not requested it. Plan: -Maintain current regimen upon discharge . Intravascular volume depletion 09/21/2013 09/22/2013 Overview: Fluid resuscitation PRN Stress hyperglycemia 09/21/2013 014 Overview: Goal glucose < 150. BS range 124-164 on 10/10/13. Plan: - Continue to monitor accucheck and administer sliding scale insulin as indicated to keep glucose <150. . Hypertension 09/21/2013 11/22/2013 Overview: Patient on lisinopril at home 10/07/2013 Adequate BP control with metoprolol IV. Resume lisinopril when indicated. Right posterolateral thoraco helder, en-bloc resection right upper lobectomy and 1, 2 and 3rd rib for Pancoast tumor 08/15/2013 11/22/2013 Overview: 53 year old male who presented with biopsy proven 3.7 cm adenocarcinoma right apical lung mass abutting the chest wall without obvious bone destruction. MRI of chest revealed second rib involvement and T1/T2 nerve root involvement without neuroforaminal involvement. After completing induction chemoradiation, underwent right thoracotomy, en bloc resection of right upper lung with ribs 1-3 with ligation of T1 nerve root (preganglionic) on 09/21/13. Postop course: Lalita's (expected), atrial fibrillation, agitation in ICU and resp failure requiring trach 10/02/13. Right chest tube removed 10/16, right jun drain to bulb remains. Ambulates in zhao frequently. Plan: - OOB, ambulation with assistance - Pain management via corpak - TF via corpak at goal . Benign neoplasm of colon Hemorrhage of gastrointestin al tract, unspecified 11/22/2013 Personal history of colonic polyps 11/22/2013 Lung cancer 11/22/2013 HTN (hypertension) 4 documented as of this encounter (statuses as of 03/02/2023) [facility] Dermatitis due to plants, including poison garry, sumac, and oak- Primary Contact dermatitis and other eczema due to plants (except food) Elevated blood pressure reading in office with diagnosis of hypertension [facility] Diagnosis Essential hypertension Unspecified essential hypertension Hyperlipidemia, unspecified hyperlipidemia type [facility]* Diagnosis Well adult exam- Primary Routine general medical examination at a health care facility Essential hypertension Unspecified essential hypertension Nocturia Hyperlipidemia, unspecified hyperlipidemia type Immunization due [facility]* Diagnosis Hyperlipidemia, unspecified hyperlipidemia type Psoriasis Other psoriasis Essential hypertension Unspecified essential hypertension [facility]* Diagnosis Seborrheic dermatitis- Primary Unspecified seborrheic dermatitis Essential hypertension Unspecified essential hypertension Nocturia Psoriasis Other psoriasis Hyperlipidemia, unspecified hyperlipidemia type [facility]* Diagnosis Nuclear sclerotic cataract of both eyes- Primary Senile nuclear sclerosis Hyperopia, bilateral Regular astigmatism of left eye Regular astigmatism Presbyopia [facility] Diagnosis Well adult exam- Primary Routine general medical examination at a health care facility Essential hypertension Unspecified essential hypertension Psoriasis Other psoriasis Seborrheic dermatitis Unspecified seborrheic dermatitis Hyperlipidemia, unspecified hyperlipidemia type [facility]* Diagnosis Well adult exam- Primary Routine general medical examination at a health care facility Screening for colon cancer Special screening for malignant neoplasms, colon Essential hypertension Unspecified essential hypertension Psoriasis Other psoriasis Hyperlipidemia, unspecified hyperlipidemia type documented in this encounter [facility] note* Diagnosis Screen for colon cancer- Primary Special screening for malignant neoplasms, colon Family history of colon cancer Family history of malignant neoplasm of gastrointestinal tract documented in this encounter [facility] note* Diagnosis Screen for colon cancer Special screening for malignant neoplasms, colon documented in this encounter [facility] note* Diagnosis Well adult exam- Primary Routine general medical examination at a health care facility Screening for colon cancer Special screening for malignant neoplasms, colon Essential hypertension Unspecified essential hypertension Psoriasis Other psoriasis Hyperlipidemia, unspecified hyperlipidemia type Anemia, unspecified type documented in this encounter [facility] note* Diagnosis History of colonic polyps- Primary Personal history of colonic polyps documented in this encounter [facility] for referral (narrative)* Outpatient Procedure (Routine) - Authorized Specialty Diagnoses / Procedures Referred By Asmita gandara Referred To Contact [facility] Diagnoses Screen for colon cancer Procedures COLONOSCOPY SCREENING COLONOSCOPY FLX DX W/COLLJ SPEC WHEN Odalys Dwyer APRN.CNP [address] [place] [address] [facility] [address] [address] Referral ID Status Reason Start Date Expiration Date Visits Requested Visits Authorized [id number] Authorized Auto-Generat ed Referral 07/03/2024 07/03/[address] [facility] Outpatient Procedure (Routine) - Closed Specialty Diagnoses / Procedures Referred By Asmita gandara Referred To Contact [facility] Diagnoses Screen for colon cancer Procedures COLONOSCOPY SCREENING COLONOSCOPY FLX DX W/COLLJ SPEC WHEN Odalys Dwyer APRN.CNP [address] [place] [address] [facility] [address] [address] Referral ID Status Reason Start Date Expiration Date V isits Requested Visits Authorized [id number] Closed Auto-Generate d Referral 07/03/2024 07/03/[address] [facility]* Outpatient Procedure (Routine) - Closed Specialty Diagnoses / Procedures Referred By Contac t Referred To Contact [facility] Diagnoses Screen for colon cancer Procedures COLONOSCOPY SCREENING COLONOSCOPY FLX DX W/COLLJ SPEC WHEN Odalys Dwyer APRN.CNP [address] [place] [address] [facility] [address] [place] [address] Referral ID Status Reason Start Date Expiration Date V isits Requested Visits Authorized [id number] Closed Auto-Generate d Referral 07/03/2024 07/03/2025 1 1 [facility] Summary Purpose Family History No Family History Records FoundNo Family History Records FoundNo Family History Records FoundNo Family History Records FoundNo Family History Records FoundNo Family History Records FoundNo Family History Records Found Advance Directives No Advanced Directives Records FoundDocuments on File Type Date 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 male. Chief Complaint Patient presents with Hypertension The patient has been out of her BP meds now for over a month Hyperlipidemia Medication Refill He is here for a follow up on hypertension and hyperlipidemia. He has been out of his BP meds for amonth. He is eating a healthy diet. He eats lots of fruits and vegetables. Not much fried food. He walks at times. He sleeps well. His mood is good. He has one more apt at [facility] about his lung cancer in April and then he will be 5 years out from his surgery. His breathing is fine. The following portions of the patient's history were reviewed and updated as appropriate: allergies, current medications, past family history, past medical history, past social history, past surgicalhistory and problem list. Review of Systems Constitutional: Negative. HENT: Negative for hearing loss, postnasal drip, rhinorrhea and sore throat. Eyes: Negative for visual disturbance. Respiratory: Negative for cough and shortness of breath. Cardiovascular: Negative for chest pain. Gastrointestinal: Negative for abdominal pain, constipation, diarrhea, nausea and vomiting. Genitourinary: Negative for difficulty urinating. Skin: Negative for color change and rash. Neurological: Negative for dizziness and headaches. Hematological: Does not bruise/bleed easily. Objective Physical Exam Constitutional: He is oriented to person, place, and time. He appears well- developed and well-nourished. HENT: Head: Normocephalic. Right Ear: External ear normal. Left Ear: External ear normal. Nose: Nose normal. Mouth/Throat: Oropharynx is clear and moist. Eyes: Conjunctivae are normal. Right eye exhibits no discharge. Left eye exhibits no discharge. Neck: Normal range of motion. Neck supple. Cardiovascular: Normal rate, regular rhythm, normal heart sounds and intact distal pulses. Pulmonary/Chest: Effort normal and breath sounds normal. No respiratory distress. Abdominal: Soft. There is no tenderness. Neurological: He is alert and oriented to person, place, and time. Coordination normal. Skin: Skin is warm and dry. No pallor. Psychiatric: He has a normal mood and affect. His behavior is normal. Judgment and thought content normal. BP (!) 163/95 Pulse 69 Temp 97.8 F (36.6 C) (Oral) Ht 5' 11 Wt 80.3 kg (177 lb) SpO2 98% BMI 24.69 kg/m Assessment/Plan: Diagnoses and all orders for this visit: Essential hypertension - lisinopril (PRINIVIL,ZESTRIL) 10 MG tablet; Take 1 (one) tablet (10 mg total) by mouth daily . Hyperlipidemia, unspecified hyperlipidemia type - atorvastatin (LIPITOR) 20 MG tablet; Take 1 (one) tablet (20 mg total) by mouth daily . Psoriasis - ketoconazole (NIZORAL) 2 % shampoo; Apply topically twice weekly Start: 08/18/18. Immunization due - Influenza IIV4 3yo or >,Fluzone Quad Return in about 6 months (around 02/13/2019) for Follow Up. For any new medications prescribed today, patient was educated about indications for the medication, how to take the medication and potential side effects of the medications. Christy Mcgee MD in this encounter* Christy Mcgee MD - 02/14/2019 3:39 PM EDT Subjective Patient ID: Lizeth Estrella is a 59 y.o. male. Chief Complaint Patient presents with Follow-up Hypertension Medication Refill He is here for a follow up on hypertension and hyperlipidemia and seborrheic dermatitis. He doesn'tfeel like the Ketoconozole helped much with his scalp. The other conditions are stable. He is eating a healthy diet. He eats lots of fruits and vegetables. Not much fried food. He walks at times. He sleeps well. His mood is good. He has one more apt at [facility] about his lung cancer in April and then he will be 5 years out from his surgery. His breathing is fine. He gets short of breath with exertion. The following portions of the patient's history were reviewed and updated as appropriate: allergies, current medications, past family history, past medical history, past social history, past surgicalhistory and problem list. Review of Systems Constitutional: Negative. HENT: Negative for hearing loss, postnasal drip, rhinorrhea and sore throat. Eyes: Positive for visual disturbance. Respiratory: Positive for shortness of breath (with exertion). Negative for cough. Cardiovascular: Negative for chest pain. Gastrointestinal: Negative for abdominal pain, constipation, diarrhea, nausea and vomiting. Genitourinary: Negative for difficulty urinating. Skin: Positive for rash (scalp). Negative for color change. Neurological: Negative for dizziness and headaches. Hematological: Does not bruise/bleed easily. Objective Physical Exam Constitutional: He is oriented to person, place, and time. He appears well- developed and well-nourished. HENT: Head: Normocephalic. Right Ear: External ear normal. Left Ear: External ear normal. Nose: Nose normal. Mouth/Throat: Oropharynx is clear and moist. Eyes: Conjunctivae are normal. Right eye exhibits no discharge. Left eye exhibits no discharge. Neck: Normal range of motion. Neck supple. Cardiovascular: Normal rate, regular rhythm, normal heart sounds and intact distal pulses. Pulmonary/Chest: Effort normal and breath sounds normal. No respiratory distress. Abdominal: Soft. There is no tenderness. Neurological: He is alert and oriented to person, place, and time. Coordination normal. Skin: Skin is warm and dry. Rash (seborrheic dermatitis on his scalp) noted. No pallor. Psychiatric: He has a normal mood and affect. His behavior is normal. Judgment and thought content normal. BP 132/76 Pulse 76 Temp 97.5 F (36.4 C) (Oral) Ht 5' 11 Wt 76.2 kg (168 lb) BMI 23.43 kg/m Assessment/Plan: Diagnoses and all orders for this visit: Well adult exam Hyperlipidemia, unspecified hyperlipidemia type - atorvastatin (LIPITOR) 20 MG tablet; Take 1 (one) tablet (20 mg total) by mouth daily . Essential hypertension - lisinopril (PRINIVIL,ZESTRIL) 10 MG tablet; Take 1 (one) tablet (10 mg total) by mouth daily . - CBC and Differential; Future - Comprehensive Metabolic Panel; Future - Lipid Panel; Future - TSH with Reflex Free T4; Future Seborrheic dermatitis - clobetasol (TEMOVATE) 0.05 % scalp solution; Apply topically daily Apply thin film onto dry scalpaffected areas only. Leave in place for 15 min before lathering and rinsing. . Nocturia - PSA Monitor; Future Return in about 6 months (around 08/17/2019) for Follow Up. For any new medications prescribed today, patient was educated about indications for the medication, how to take the medication and potential side effects of the medications. Christy Mcgee MD documented in this encounter* Christy Mcgee MD - 08/17/2019 1:28 PM EST Subjective Patient ID: Lizeth Estrella is a 59 y.o. male. Chief Complaint Patient presents with Hypertension Hyperlipidemia Elevated PSA Follow-up He is here for a follow up on hypertension and hyperlipidemia. These conditions are stable. His home blood pressures are in the 120/70 range. He is eating a healthy diet. He eats lots of fruits and vegetables. Not much fried food. He walks at times. He sleeps well. His mood is good. He has one more apt at [facility] in October about his lung cancer and then he will be 5 years out from his surgery. His breathing is fine. He gets short of breath with exertion. The following portions of the patient's history were reviewed and updated as appropriate: allergies, current medications, past family history, past medical history, past social history, past surgicalhistory and problem list. Review of Systems Constitutional: Negative. HENT: Negative for hearing loss, postnasal drip, rhinorrhea and sore throat. Eyes: Negative for visual disturbance. Respiratory: Positive for shortness of breath (with exertion). Negative for cough. Cardiovascular: Negative for chest pain. Gastrointestinal: Negative for abdominal pain, constipation, diarrhea, nausea and vomiting. Genitourinary: Negative for difficulty urinating. Skin: Negative for color change and rash. Neurological: Negative for dizziness and headaches. Hematological: Does not bruise/bleed easily. Objective Physical Exam Constitutional: He is oriented to person, place, and time. He appears well- developed and well-nourished. HENT: Head: Normocephalic. Right Ear: External ear normal. Left Ear: External ear normal. Nose: Nose normal. Mouth/Throat: Oropharynx is clear and moist. Eyes: Conjunctivae are normal. Right eye exhibits no discharge. Left eye exhibits no discharge. Neck: Normal range of motion. Neck supple. Cardiovascular: Normal rate, regular rhythm, normal heart sounds and intact distal pulses. Pulmonary/Chest: Effort normal and breath sounds normal. No respiratory distress. Abdominal: Soft. There is no abdominal tenderness. Neurological: He is alert and oriented to person, place, and time. Coordination normal. Skin: Skin is warm and dry. No pallor. Psychiatric: He has a normal mood and affect. His behavior is normal. Judgment and thought content normal. BP 138/88 Pulse 73 Temp 97.8 F (36.6 C) (Oral) Ht 5' 11 Wt 77.6 kg (171 lb) BMI 23.85 kg/m Assessment/Plan: Diagnoses and all orders for this visit: Essential hypertension - lisinopril (PRINIVIL,ZESTRIL) 10 MG tablet; Take 1 (one) tablet (10 mg total) by mouth daily . Hyperlipidemia, unspecified hyperlipidemia type - atorvastatin (LIPITOR) 20 MG tablet; Take 1 (one) tablet (20 mg total) by mouth daily . Elevated PSA - PSA Monitor; Future Continue current medication unless otherwise indicated. For any new medications prescribed today, patient was educated about indications for the medication, how to take the medication and potential side effects of the medications. Return in about 6 months (around 02/15/2020) for Follow Up. Christy Mcgee MD documented in this encounter* Christy Mcgee MD - 03/19/2020 4:29 PM EDT Subjective Patient ID: Lizeth Estrella is a 60 y.o. male. Chief Complaint Patient presents with Hypertension Follow-up Hyperlipidemia He is here for a follow up on hypertension and hyperlipidemia. These conditions are stable. He hasn't been checking his blood pressure at home. He is eating a healthy diet. He eats lots of fruits and vegetables. Not much fried food. He walks at times. He sleeps well. His mood is good. He is done with his appointments at [facility] now for lung cancer. He is in remission. His breathing is fine. He gets short of breath with exertion. That is better. The following portions of the patient's history were reviewed and updated as appropriate: allergies, current medications, past family history, past medical history, past social history, past surgicalhistory and problem list. Review of Systems Constitutional: Negative. HENT: Negative for hearing loss, postnasal drip, rhinorrhea and sore throat. Eyes: Negative for visual disturbance. Respiratory: Negative for cough and shortness of breath. Cardiovascular: Negative for chest pain. Gastrointestinal: Negative for abdominal pain, constipation, diarrhea, nausea and vomiting. Genitourinary: Negative for difficulty urinating. Skin: Negative for color change and rash. Neurological: Negative for dizziness and headaches. Hematological: Does not bruise/bleed easily. Objective Physical Exam Constitutional: He is oriented to person, place, and time. He appears well- developed and well-nourished. HENT: Head: Normocephalic. Right Ear: External ear normal. Left Ear: External ear normal. Nose: Nose normal. Mouth/Throat: Oropharynx is clear and moist. Eyes: Conjunctivae are normal. Right eye exhibits no discharge. Left eye exhibits no discharge. Neck: Normal range of motion. Neck supple. Cardiovascular: Normal rate, regular rhythm, normal heart sounds and intact distal pulses. Pulmonary/Chest: Effort normal and breath sounds normal. No respiratory distress. Abdominal: Soft. There is no abdominal tenderness. Neurological: He is alert and oriented to person, place, and time. Coordination normal. Skin: Skin is warm and dry. No pallor. Psychiatric: He has a normal mood and affect. His behavior is normal. Judgment and thought content normal. BP 126/78 Pulse 64 Temp 98.7 F (37.1 C) (Infrared) Ht 5' 11 Wt 78.9 kg (174 lb) BMI 24.27 kg/m Assessment/Plan: Diagnoses and all orders for this visit: Essential hypertension - lisinopriL (PRINIVIL,ZESTRIL) 10 MG tablet; Take 1 (one) tablet (10 mg total) by mouth daily . Hyperlipidemia, unspecified hyperlipidemia type - atorvastatin (LIPITOR) 20 MG tablet; Take 1 (one) tablet (20 mg total) by mouth daily . Screening procedure - HIV Antibody (HIV1/HIV2); Future Continue current medication unless otherwise indicated. For any new medications prescribed today, patient was educated about indications for the medication, how to take the medication and potential side effects of the medications. Return in about 6 months (around 09/19/2020) for Follow Up. Christy Mcgee MD documented in this encounter* Christy Mcgee MD - 09/19/2020 1:48 PM EST Subjective Patient ID: Lizeth Estrella is a 60 y.o. male. Chief Complaint Patient presents with Hypertension Hyperlipidemia Follow-up He is here for a follow up on hypertension and hyperlipidemia. These conditions are stable. His blood pressure is 110-120/70-80 at home. He is eating a healthy diet. He eats lots of fruits and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
[2025-06-16 14:15] LABS: Hematocrit 40.1 % (40-54); Hemoglobin 12.8 g/dL (13.0-16.5); Immature Granulocytes Count 0.050 X10^3/uL (0.0-0.0); Mean Corp Hgb Conc 31.9 g/dL (32-36); Mean Corpuscular Volume 85.5 fL (80-94); Mean Platelet Vol. 9.6 fl (6.2-12.0); NRBC Flagged by Analyzer 0 % (0-5); Platelet Count 243 K/mm3 (150-450); RBC Distribution Width CV 17.0 % (11.6-14.6); RBC Distribution Width SD 52.5 fl (35.1-43.9); Red Blood Count 4.69 M/mm3 (4.6-6.2); White Blood Count 10.1 K/mm3 (4.4-11.0)
--- NOTE | 2025-06-16 14:18 | ED.VIS.DYS ---
HPI History of Present Illness Chief Complaint: Shortness of Breath Narrative Narrative: Chief complaint and HPI: 65-year-old male with past medical history of lung cancer requiring surgical resection presents for evaluation of shortness of breath and cough. Patient states for the past several days he has had URI symptoms including ear pain, sore throat, cough. States he was seen at urgent care on and diagnosed with double pneumonia, double ear infection, and throat infection. Patient states that he was also told that it appears that his previous surgical screws maybe not in correct placement. When I asked patient where the screws were located he was unsure. He states that they saw it on the x-ray. Originally had fevers that have since resolved. He states his cough and shortness of breath have not improved since the antibiotics. He has some nausea. He denies any chest pain. He is currently on Zofran as needed, doxycycline and amoxicillin. Review of systems: See HPI Medications: As listed on the chart Allergies: As listed on the chart PFSH: Per chart Vital signs: As listed on the chart. Reviewed. Physical exam: Gen: A&O x3, NAD Head: Normocephalic, atraumatic Eyes: No sclera icterus, conjunctiva clear, PERRL, EOMI ENT: EACs clear bilaterally, TMs mildly erythematous bilaterally, moist mucous membranes, posterior oropharynx unremarkable except for mild erythema, uvula midline, tonsils not enlarged, no tonsillar exudates Neck: Trachea midline, No JVD, Full ROM, No meningismus, no lymphadenopathy CV: RRR, no murmurs, no peripheral edema Resp: Lungs CTA BL, no w/r/c GI: Abd soft, non-distended, non-tender, no r/r/g Musc: Full ROM, no deformity Skin: Warm, dry, no rash Neuro: Alert, oriented, grossly intact, sensation intact Psych: Cooperative, appropriate mood and affect PFS PFS Allergy/AdvReac Type Severity Reaction Status Date / Time No Known Allergies Allergy Verified 06/16/25 11:59 Social History Smoking Status: Never smoker EXAM Physical Exam Const Vital Signs: 06/16/25 11:58 06/16/25 12:02 06/16/25 12:20 Temperature 99 F 98 F Temperature Source Temporal Oral Pulse Rate 95 88 Respiratory Rate 26 H 20 H Respiratory Effort Short of Breath Blood Pressure 153/88 H 129/78 H Blood Pressure Mean 109 95 Pulse Ox 98 98 Oxygen Delivery Method Room Air Room Air Room Air 06/16/25 13:00 06/16/25 13:02 06/16/25 14:00 Temperature 98 F 98 F Temperature Source Oral Oral Pulse Rate 83 81 88 Respiratory Rate 23 H 25 H 28 H Respiratory Effort Blood Pressure 119/87 H 133/84 H 136/88 H Blood Pressure Mean 94 100 104 Pulse Ox 96 100 99 Oxygen Delivery Method Room Air Room Air 06/16/25 14:09 06/16/25 14:18 06/16/25 15:00 Temperature 98 F Temperature Source Oral Pulse Rate 88 95 Respiratory Rate 20 H 25 H Respiratory Effort Blood Pressure 126/75 H Blood Pressure Mean 92 Pulse Ox 95 Oxygen Delivery Method Room Air Room Air 06/16/25 16:00 Temperature 97.8 F Temperature Source Oral Pulse Rate 93 Respiratory Rate 18 Respiratory Effort Blood Pressure 130/75 H Blood Pressure Mean 93 Pulse Ox 98 Oxygen Delivery Method Room Air MDM MDM MDM Narrative Medical decision making narrative: 65-year-old male with past medical history of lung cancer requiring surgical resection presents for evaluation of shortness of breath and cough. Patient states for the past several days he has had URI symptoms including ear pain, sore throat, cough. States he was seen at urgent care on and diagnosed with double pneumonia, double ear infection, and throat infection. Patient states that he was also told that it appears that his previous surgical screws maybe not in correct placement. When I asked patient where the screws were located he was unsure. He states that they saw it on the x-ray. On presentation, patient no acute distress. Intermittently tachypneic. Not hypoxic. Afebrile. Differential diagnosis includes but is not limited to pneumonia, bronchitis, viral illness. Patient's tympanic membranes are mildly erythematous however he is already on Augmentin and being treated for otitis media. He has mild erythema of the throat. He states he was diagnosed with a throat infection although states he was not strep tested. Throat is mildly erythematous otherwise unremarkable. Will obtain strep test to assess. I did reach out to the urgent care, you are able to speak with the wireline operator who looked at the chart and stated that the only imaging he received with a chest x-ray. Therefore we will repeat chest x-ray including basic laboratory workup. Will give DuoNeb for symptoms. CBC without leukocytosis. Patient has anemia of 12.8. I do not have previous labs to compare to. Platelets unremarkable. CMP shows mild dehydration without JERONIMO. Patient received fluids. No transaminitis. Chest x-ray was personally reviewed and interpreted by me, ED physician. Right consolidation concerning for pneumonia. Postsurgical changes. Per radiology right perihilar opacity, likely pneumonia. Postsurgical changes on the right with hyperlucent right apex extending to the neck base. This may represent pulmonary hernia due to postsurgical removal of the 1st and 3rd ribs. A pneumothorax cannot be excluded. Given this finding, CT chest ordered to assess for pneumothorax. Strep PCR negative. COVID, flu, RSV negative. CT of the chest pending at this time. Patient already on medication for pneumonia. Is suggesting pending results. Patient signed out to oncoming physician Dr. Valdez. EKG: Interpreted by me/EM physician: EKG shows normal sinus rhythm without any acute ischemic changes. Heart rate 82. Impression: 1. Right sided pneumonia 2. History of lung cancer with resection Lab Data Labs: Laboratory Results - last 24 hr 06/16/25 13:34 WBC 10.1 RBC 4.69 Hgb 12.8 L Hct 40.1 MCV 85.5 MCH 27.3 MCHC 31.9 L RDW Std Deviation 52.5 H RDW Coeff of Jorgito 17.0 H Plt Count 243 MPV 9.6 Immature Gran % (Auto) 0.500 Neut % (Auto) 80.0 H Lymph % (Auto) 6.[address] [place] % (Auto) 12.8 H Eos % (Auto) 0.1 Baso % (Auto) 0.2 Absolute Neuts (auto) 8.1 H Absolute Lymphs (auto) 0.65 L Nucleated RBC % 0 Sodium 131 L Potassium 4.2 Chloride 97 L Carbon Dioxide 17.3 L Anion Gap 17 H BUN 14 Creatinine 0.96 Estim Creat Clear Calc 80.27 Est GFR (MDRD) Non-Af 89 BUN/Creatinine Ratio 14.5 Glucose 116 H Calcium 9.9 Total Bilirubin 0.60 AST 14 ALT 9 Alkaline Phosphatase 67 Total Protein 8.0 Albumin 3.8 Globulin 4.1 Albumin/Globulin Ratio 0.9 Radiography Diagnostic Testing: Clinical Impression(s) from Imaging Studies Chest X-Ray 06/16/25 14:42 IMPRESSION: 1. Right perihilar opacity, likely pneumonia. 2. Postsurgical changes on the right with hyperlucent right apex extending into the neck base. This may represent pulmonary hernia due to postsurgical removal of the 1st to 3rd ribs. A pneumothorax can not be excluded. Reading Location: [facility] Discharge Plan Triage Chief Complaint: Shortness of Breath ED Provider: Junior Enciso Dx/Rx/DC Orders Primary Care Provider: Kibmerly Mcgee Referrals: Kimberly Mcgee MD [Primary Care Provider, Family Practice] Print Language: Filipino
[2025-06-16] MEDS: 0.9% Normal Saline (500mL Bag) 500 ML 1000 ML IV (14:37)
[2025-06-16 14:41] LABS: AST(SGOT) 14 U/L (<=37); Alanine Aminotransfer ALT/SGPT 9 U/L (<=46); Albumin, Serum 3.8 g/dL (3.4-4.8); Alkaline Phosphatase 67 U/L (40-129); Anion Gap 17 (5-15); BUN 14 mg/dL (4-19); BUN/Creat Ratio 14.5 RATIO (10-20); Calcium,Total 9.9 mg/dL (7.6-11.0); Carbon Dioxide 17.3 mmol/L (21.0-32.0); Chloride 97 mmol/L (98-108); Estimated Creatinine Clearance 80.27 ml/min (50-250); Globulin 4.1 g/dL (2.2-4.2); Glucose 116 mg/dL (70-99); Potassium 4.2 mmol/L (3.3-5.1)
--- NOTE | 2025-06-16 14:42 | RAD_ITS ---
PROCEDURE: CHEST PA AND LATERAL 06/16/2025 REASON FOR EXAM: SHORTNESS OF BREATH, COUGH, RECENT PNEUMONIA TECHNIQUE: Procedure Code: RADCXR Modality: DX Procedure: CHEST PA AND LATERAL COMPARISON: None. FINDINGS: LUNGS AND PLEURA: Postsurgical changes in the right lung with the right 1st to 3rd ribs removed. Hyperlucent right lung apex which extends to the right neck base. Focal opacity in the right perihilar region. No pleural effusion. HEART AND MEDIASTINUM: The heart size and mediastinal contours are normal. BONES: No acute osseous abnormality. RAD/Chest PA and Lateral IMPRESSION: 1. Right perihilar opacity, likely pneumonia. 2. Postsurgical changes on the right with hyperlucent right apex extending int o the neck base. This may represent pulmonary hernia due to postsurgical removal of the 1st to 3rd ribs. A pneumothorax can not be excluded. Reading Location: [id number]
--- NOTE | 2025-06-16 16:40 | CT_ITS ---
PROCEDURE: CHEST WITHOUT CONTRAST 06/16/2025 REASON FOR EXAM: ASSESS FOR PNEUMOTHORAX TECHNIQUE: Chest CT without contrast. Coronal and Sagittal reconstruction series were provided. One or more dose reduction techniques were used (e.g., Automated exposure control, adjustment of the mA and/or kV according to patient size, use of iterative reconstruction technique RADIATION DOSE SUMMARY: CTDlvol: 6.5 mGy DLP: 230 mGycm COMPARISON: Reviewed including recent chest radiography FINDINGS: Thoracic inlet is unremarkable. Heart size normal. Moderate coronary artery calcifications are seen. Partially visualized upper abdomen is unremarkable. No pericardial effusion. No axillary adenopathy. No hilar adenopathy. Postsurgical changes of the right lower lobe are seen. Pleural-based mass medial right jim chest is seen adjacent to surgical sutures measuring approximately 9.1 by 3.9 cm. Left lung grossly clear. Emphysematous change particularly fact in the right upper lobe. No pneumothoraces. Heterogeneous airspace opacities at the right base. CT/Chest without Contrast IMPRESSION: No pneumothorax. Pleural-based mass in the right chest as well as a small righ t pleural effusion with adjacent airspace disease and heterogeneous airspace opacities with prominent asymmetric [id number] an-left emphysematous change. Reading Location: [facility]
== END 2025-06-16 18:46 | disposition home or self-care (01) ==
PROVIDERS: Emergency Provider Surgery; PCP Family Medicine; Visit Provider Surgery
DX: J18.9 Pneumonia, unspecified organism (principal); R11.0 Nausea; H66.90 Otitis media, unspecified, unspecified ear; E86.0 Dehydration; D64.9 Anemia, unspecified; Z85.118 Personal history of other malignant neoplasm of bronchus and lung; J90 Pleural effusion, not elsewhere classified; R91.8 Other nonspecific abnormal finding of lung field
CPT/HCPCS: 71046; 71250; 80053; 85025; 87631; 87651; 93005; 94640; 96360; 96361; 99285; A4216

== ENCOUNTER → 2025-07-03 07:56 | Outpatient (RCR) | payer MEDICAID, SELFPAY ==
--- NOTE | 2025-07-03 08:30 | PET_ITS ---
PROCEDURE: PET/CT TUMOR BASE -THIGH INIT 07/03/2025 REASON FOR EXAM: 65 y/o M with ABNORMAL LUNG FINDINGS TECHNIQUE: Procedure Code: PETPTCTINIT Modality: PT Procedure: PET/CT TUMOR BASE -THIGH INIT Following the intravenous administration of radionucleotide, image acquisition on a dedicated PET/CT unit was performed at one hour post injection. A preliminary CT study encompassing the Skull base, neck, chest, abdomen, pelvis, and proximal thighs was performed for purposes of attenuation correction and anatomic localization. The proximal thighs were also included. The patient's blood glucose level was 73 mg/dL (allowable range: 50-180 mg/dL). RADIOPHARMACEUTICAL: 14.56 mCi 18F-FDG (Fluorodeoxyglucose F18) IV was injected into he patient. RADIATION DOSE SUMMARY: Effective Dose: Approximately 7 mSv for a standard whole-body PET scan Organ Doses: Varies by organ, with higher doses typically to the bladder, liver, and brain. DLP: 646.67 mGy per cm COMPARISON: COMPARISON FROM CT, PET OR OTHER PERTINENT EXAMS: CT chest dated June 16, 2025. FINDINGS: Physiologic uptake: There may be expected metabolic uptake within the brain, tongue and floor of the mouth and larynx/vocal cords, heart, igor, liver and spleen, system, and GI tract and symmetric muscle uptake. FDG AVID AND NON-AVID LESIONS. Reported avid SUV values (g/mL*) are maximum SUV. Mediastinal background SUVmax: 3.54 Hepatic background SUVmax: 3.81 Head and brain: No focal abnormal metabolic activity. Neck: CT findings: No focal mass. The oropharynx, hypopharynx and larynx otherwise negative. No cervical adenopathy. Thyroid gland negative. Calcifications of the carotid bulbs. No lymphadenopathy or mass. Normal salivary glands PET findings: No abnormal metabolic activity. Chest: There is a small right paratracheal lymph node in the prevascular space image 78 series 202. This demonstrates no hypermetabolic activity. Surgical sutures are seen along the right inferior hilum with pleural-based opacity demonstrating mild hypermetabolic uptake (SUV max 4.68). No other pulmonary nodules or masses. No mediastinal, hilar or axillary adenopathy. Imaged thoracic aorta negative. Coronary arterial calcifications and mild cardiomegaly, stable. No suspicious pulmonary nodule. Dependent atelectatic changes of the lower lobes.. Abdomen: CT findings: No liver mass. No intrahepatic or extrahepatic ductal dilatation. Gallbladder negative. Adrenal glands negative without mass. Kidneys negative without mass. Spleen and pancreas negative. Remainder of the abdomen is unremarkable. Normal appendix in the right lower quadrant. Atherosclerosis throughout the aorta. No aneurysm. PET findings: No abnormal metabolic activity. Pelvis: CT findings: No inguinal or iliac adenopathy. No focal mass. PET findings: Circumferential uptake in the anus otherwise no additional suspicious uptake or lymphadenopathy. Bones: CT findings: Age-appropriate degenerative changes of the spine. Age-appropriate degenerative changes of the shoulders and hips. Negative for lytic or sclerotic lesions. PET findings: No focal abnormal metabolic activity. PET/PET/CT Tumor Base -Thigh Init IMPRESSION: FDG [id number] opacity/effusion along the suture margin in the right he mithorax demonstrating hypermetabolic activity and concerning for local recurrence or malignant pleural effusion. Correlate with results of biopsy performed later the same day.. Suspicious- No significant suspicious abnormalities. Non-FDG avid- No non-FDG avid cysts. Other: No additional comments. Reading Location: [id number]
== END ==
LOC: ONC 07:56
PROVIDERS: PCP Family Medicine; Referring Provider Internal Medicine Medical Oncology; Visit Provider Internal Medicine Medical Oncology
DX: R91.8 Other nonspecific abnormal finding of lung field (principal)
CPT/HCPCS: 78815; A9552

== ENCOUNTER → 2025-07-04 | Outpatient (CLI) | payer MEDICAID, SELFPAY ==
[2025-07-04] VITALS (13 sets, daily range): BP systolic 112–157; BP diastolic 68–89; PULSE 72–81; RESP 12–19; TEMP 36.5–36.9; O2SAT 94–99; BMI 24.0
--- NOTE | 2025-07-04 09:48 | CT_ITS ---
PROCEDURE: BIOPSY/INJ OR NEEDLE PLACEMENT 07/04/2025 REASON FOR EXAM: LUNG MASS Right lower lobe abnormality. TECHNIQUE: The procedure as well as the benefits and possible complications including infection, bleeding and pneumothorax were explained to the patient. Informed consent was obtained. The patient was in the prone position. The overlying skin was prepped and draped in the usual sterile fashion. Conscious sedation was performed. The patient received 2 mg of Versed and 50 mcg of fentanyl intravenously. Conscious sedation was started at 10:30 a.m. and terminated at 10:52 a.m.. The patient was independently monitored by the department nurse. Following local anesthetic application, a 20 gauge core biopsy needle was placed into the density in the posterior medial segment of the right lower lobe. 6 core biopsies were obtained. The specimen was deemed adequate by the pathologist. CONTRAST: None. RADIATION DOSE SUMMARY: CTDlvol: 14.3 mGy DLP: 230.92 mGycm COMPARISON: Prior CT scan of the chest dated June 16, 2025. FINDINGS: Successful CT-guided core biopsies. The patient tolerated the procedure well. CT/Biopsy/Inj or Needle Placement IMPRESSION: Successful CT-guided core biopsies. The patient tolerated the procedure well. No immediate complication was noted. Reading Location: [id number]
[2025-07-04 09:58] LABS: Hematocrit 41.7 % (40-54); Hemoglobin 13.3 g/dL (13.0-16.5); Immature Granulocytes Count 0.010 X10^3/uL (0.0-0.0); Mean Corp Hgb Conc 31.9 g/dL (32-36); Mean Corpuscular Volume 85.3 fL (80-94); Mean Platelet Vol. 8.5 fl (6.2-12.0); NRBC Flagged by Analyzer 0 % (0-5); Platelet Count 280 K/mm3 (150-450); RBC Distribution Width CV 17.0 % (11.6-14.6); RBC Distribution Width SD 52.3 fl (35.1-43.9); Red Blood Count 4.89 M/mm3 (4.6-6.2); White Blood Count 4.7 K/mm3 (4.4-11.0)
[2025-07-04 10:02] LABS: Prothrombin Time (Protime)PT. 12.4 SECONDS (11.7-14.9)
[2025-07-04 10:03] LABS: Partial Thromboplast Time 21.5 Seconds (24.1-36.2)
[2025-07-04] MEDS: 0.9% Normal Saline (250mL Bag) 250 ML 15 ML IV (10:30)
[2025-07-04] MEDS: Midazolam 2 MG/2 ML Syringe IV (10:30)
[2025-07-04] MEDS: fentaNYL 100 MCG/2 ML Ampul IV (10:30)
--- NOTE | 2025-07-04 10:30 | RAD_ITS ---
PROCEDURE: CHEST INSP/EXP 2 VIEW 07/04/2025 REASON FOR EXAM: POST LUNG BIOPSY TECHNIQUE: Procedure Code: RADCXRINSPEXP Modality: DX Procedure: CHEST INSP/EXP 2 VIEW COMPARISON: CT chest dated 06/06/2025 FINDINGS: Postsurgical changes in the right lung with the right 1st to 3rd ribs removed. Hyperlucent right lung apex which extends to the right neck base. Focal opacity in the right perihilar region. No pleural effusion.No pneumothorax is seen on expiration or expiration view. HEART AND MEDIASTINUM: The heart size and mediastinal contours are normal. BONES: No acute osseous abnormality. RAD/Chest Insp/Exp 2 View IMPRESSION: No pneumothorax is seen on expiration or expiration view. Reading Location: [facility]
[2025-07-04] MEDS: Lidocaine 2% (20 ml mdv) 20 ML Vial INFILT (10:35)
--- NOTE | 2025-07-04 10:40 | ASPIGT_PTH ---
PATIENT: LIZETH ESTRELLA LOC: CT U#:[id number] AGE/SX: 65/M ROOM: RE07/04/[address]: Dr. Francis Fleming MD : 1960 BED: DIS: 07/04/2025 SPEC #: [id number] RECD: 07/04/25 10:45 STATUS: SUZETTE RELuis Enrique #: [id number] SHELDON: 07/04/25 10:[address]: Francis Fleming DEPT: SURGICAL PATHOLOGY RECD BY: Aundrea Louis ENTERED: 07/04/25 11:36 SP TYPE: ASP RAD OTHR DR: Dr. Kimberly Mcgee MD Tissues: Lung, NOS Procedures: FNA Specimen Adequacy Special Stain Group II Surgery Specimen Level V Imprint (control) HEADER OPERATION: Right lung biopsy PRE-OP DIAGNOSIS: Lung mass TISSUE SUBMITTED: A- Right lung biopsy MICROSCOPIC DIAGNOSIS A. Lung, right, CT-guided core biopsy: - Fibrin and fibroblast plugs with interstitial chronic inflammation, suggestive of organizing pneumonia. - No malignancy observed in these sections - see note. 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 This case will be sent to [facility] for second opinion with a thoracic vision specialist pathologist. An addendum report will follow. COMMENT The specimen is evaluated at the time of biopsy by Dr. Edmondson. Immediate Evaluation = #4. Few cells. #5. Few cells. #6. Adeqaute. MICROSCOPIC DESCRIPTION Slides are reviewed. GROSS DESCRIPTION A. Received in formalin labeled with the patient's name and date of . Designated as R lung BX are multiple mejia to red, focally anthracotic, fragmented tissue cores, collectively measuring 1.4 x 0.6 x <0.1 cm in aggregate. Touch preparations are made. Entirely submitted in 2 cassettes. MN 07/04/2025 CPT:[id number] ADDENDUM ADDENDUM ADDENDUM ADDENDUM ADDENDUM ADDENDUM ADDENDUM ADDENDUM ADDENDUM ADDENDUM 07/10/2025 14:09 ADDENDUM 07/10/2025 14:09 ADDENDUM 07/10/2025 14:09 ADDENDUM 07/10/2025 14:09 ADDENDUM 07/10/2025 14:09 This addendum is added to incorporate an outside pathology consultation report. The case was examined at [facility] by Dr. Beltran (#[id number]) and the following diagnosis was rendered. A. Lung, right, CT-guided core biopsy: Organizing pneumonia. Please see complete above mentioned consultation report in EMR
--- NOTE | 2025-07-04 12:30 | RAD_ITS ---
PROCEDURE: CHEST INSP/EXP 2 VIEW 07/04/2025 REASON FOR EXAM: 2 HR POST LUNG BIOPSY TECHNIQUE: Procedure Code: RADCXRINSPEXP Modality: DX Procedure: CHEST INSP/EXP 2 VIEW An inspiration AP portable upright radiograph of the chest was obtained. COMPARISON: Chest x-ray dated 09/04/2024 at 11:01 FINDINGS: The 1st, 2nd, and 3rd right ribs have been removed. There is increased lucency in the right lung apex which extends to the right neck base. Surgical clips are projected over the right apical lung region and right hilar region. Again noted is a focal opacity in the right perihilar region. There are no pneumothoraces, lung contusions or atelectasis. There is a small right pleural effusion. Left lung is expanded without evidence of pneumothorax, atelectasis, consolidation, effusion or pneumonic infiltrate. Heart size and configuration are within normal limits. Trachea is midline. Arteriosclerotic vascular disease of the aorta is noted. RAD/Chest Insp/Exp 2 View IMPRESSION: The 1st, 2nd, and 3rd right ribs have been removed. There is increased lucency in the right lung apex which extends to the right ne ck base. Surgical clips are projected over the right apical lung region and right hilar region. Again noted is a focal opacity in the right perihilar region. There is a small right pleural effusion. Reading Location: [id number]
== END | disposition home or self-care (01) ==
PROVIDERS: PCP Family Medicine; Referring Provider Internal Medicine Medical Oncology; Visit Provider Internal Medicine Medical Oncology
DX: J98.4 Other disorders of lung (principal); J90 Pleural effusion, not elsewhere classified; I10 Essential (primary) hypertension; E78.5 Hyperlipidemia, unspecified; Z90.2 Acquired absence of lung [part of]; Z85.118 Personal history of other malignant neoplasm of bronchus and lung; Z79.899 Other long term (current) drug therapy
CPT/HCPCS: 32408; 88305; 36415; 71046; 77012; 85025; 85610; 85730; 88172; 88307; 88313; 99156